=== PATIENT | male | born 1960 | race Caucasian/White ===

== ENCOUNTER 2023-05-02 16:03 | Inpatient (IN) | payer OTHER, SELFPAY ==
[2023-05-02] VITALS (23 sets, daily range): BP systolic 123–254; BP diastolic 71–109; PULSE 88–109; RESP 16–18; TEMP 36.4–36.8; O2SAT 95–100; BMI 26.3; BMI 26.9
--- NOTE | 2023-05-02 16:25 | CRLHL7_ITS ---
For Patients: As a result of the Century Cures Act, medical imaging exams and procedure reports are released immediately into your electronic medical record. You may view this report before your referring provider. If you have questions, please contact your health care provider. INDICATION: Slurred speech TECHNIQUE: Head CT without contrast. COMPARISON: None. FINDINGS: CSF spaces: Mild diffuse global parenchymal volume loss. Brain parenchyma and extra-axial spaces: There are nonspecific low attenuation white matter changes consistent with chronic microvascular disease. No sign of intracranial hemorrhage, or midline shift. Skull base and calvarium: The visualized paranasal sinuses and mastoid air cells demonstrate no acute or significant findings. The visualized orbits are grossly unremarkable. No skull fractures. IMPRESSION: No evidence of acute intracranial abnormality on this unenhanced CT. Specifically, no evidence of intracranial hemorrhage. Mild global parenchymal volume loss and probable chronic microvascular ischemic changes. Please note that all CT scans at this facility use dose modulation, iterative reconstruction, and/or weight-based dosing when appropriate to reduce radiation dose to as low as reasonably achievable. Dictated by Aj Mcclain MD @ 05/02/2023 5:13:16 PM (Electronically Signed)
--- NOTE | 2023-05-02 16:25 | CRLHL7_ITS ---
For Patients: As a result of the Century Cures Act, medical imaging exams and procedure reports are released immediately into your electronic medical record. You may view this report before your referring provider. If you have questions, please contact your health care provider. DATE: 05/02/2023 CLINICAL HISTORY: Patient with slurred speech. TECHNIQUE: Standard helical CT image acquisition through the intracranial circulation following intravenous administration of contrast material with bolus tracking. 2D and 3D MIP images for post-processing were performed and interpreted on an independent workstation and 3D images were permanently archived. COMPARISON: CT same day. FINDINGS: There is no proximal intracranial large vessel occlusion. There is an incidental 2mm right M1 segment aneurysm. The right internal carotid artery is normal. The right anterior cerebral artery and its branches are normal. The left internal carotid artery is normal. The left middle cerebral artery and its branches are normal. The left anterior cerebral artery and its branches are normal. The anterior communicating artery is well visualized and appears normal. The right vertebral artery and PICA are normal. The left vertebral artery and PICA are normal. The right vertebral artery is dominant. The basilar artery is patent and appears normal. The right posterior cerebral artery is normal. The left posterior cerebral artery is normal. IMPRESSION: 1. No proximal intracranial large vessel occlusion. 2. Incidental 2mm right M1 segment aneurysm. Telehealth consultation with [facility]s Neurointerventional team for management of this aneurysm can be arranged by calling . Please note that all CT scans at this facility use dose modulation, iterative reconstruction, and/or weight-based dosing when appropriate to reduce radiation dose to as low as reasonably achievable. Dictated by Janis Leon MD @ 05/03/2023 9:08:46 AM (Electronically Signed)
--- NOTE | 2023-05-02 16:25 | CRLHL7_ITS ---
For Patients: As a result of the Century Cures Act, medical imaging exams and procedure reports are released immediately into your electronic medical record. You may view this report before your referring provider. If you have questions, please contact your health care provider. DATE: 05/02/2023 CLINICAL HISTORY: Patient with slurred speech. TECHNIQUE: Standard helical CT image acquisition of the neck up to the skull base after bolus intravenous contrast enhancement. 2D and 3D MIP images for post-processing were performed and interpreted on an independent workstation and 3D images were permanently archived. COMPARISON: CT same day FINDINGS: The origins of the great vessels from the aortic arch are patent. The origin of the right vertebral artery is patent. The origin of the left vertebral artery is patent. The common carotid arteries are patent. There is no stenosis at the origin of the right internal carotid artery. There is no stenosis at the origin of the left internal carotid artery. The rest of the cervical segments of the internal carotid arteries are patent up to the skull base. The right vertebral artery is dominant. The cervical segments of the vertebral arteries are patent up to the skull base. The visualized lung apices are unremarkable. The thyroid gland demonstrates a 10mm hypodense lesion in its left lobe, likely a cyst. The soft tissues of the neck are unremarkable. There are degenerative changes in the cervical spine. IMPRESSION: Patent cervical vasculature. Please note that all CT scans at this facility use dose modulation, iterative reconstruction, and/or weight-based dosing when appropriate to reduce radiation dose to as low as reasonably achievable. Dictated by Janis Leon MD @ 05/03/2023 8:56:38 AM (Electronically Signed)
--- NOTE | 2023-05-02 16:33 | ED_ITS ---
HPI - General Adult General Chief complaint: Neuro Symptoms/Altered Deficit Stated complaint: difficulty walking Time Seen by Provider: 05/02/23 16:08 Source: patient and family Limitations: no limitations History of Present Illness HPI narrative: 62-year-old male coming into the ER today with difficulty walking. States that his symptoms started about 7-1/2 hours ago when he was at work. Became weak and had a difficult time walking. He states that when he walks he felt like he had a fall to the right side. His boss commented that his speech was a bit slurred. His and daughter who brought him in today states that his speech is very mildly slurred but not significantly different than usual. But that he is having a very hard time walking to the point where they had help him with a wheelchair. He has not had any vomiting or fevers today. He is not complaining of chest pain. He denies having a headache. He denies abdominal discomfort or recent illness. He denies any changes in his hearing or vision. Patient's past medical history significant for diabetes, hypertension hyperlipidemia. He is on a statin which he thinks is atorvastatin, Victoza and lisinopril. He also tells me later on that he has a history of sarcoidosis, elevated creatinine and elevated calcium in the past. He does complain of increased urinary frequency with multiple trips to the bathroom at night and significant weight loss in the last 3 or so months. Related Data Home Medications Medication Instructions Recorded Confirmed cholecalciferol (vitamin D3) 1,250 PO 05/02/23 mcg (50,000 unit) capsule liraglutide 0.6 mg/0.1 mL (18 mg/3 1.2 mg subcut DAILY 05/02/23 05/02/23 mL) subcutaneous pen injector (Victoza 2-Con) lisinopril PO DAILY 05/02/23 Allergies Allergy/AdvReac Type Severity Reaction Status Date / Time No Known Drug Allergies Allergy Verified 05/02/23 16:23 Review of Systems Status of ROS: Reports: 10 or more systems reviewed and unremarkable except as noted in History and below [facility] Social History Smoking Status: Former smoker What tobacco products do you use: cigarettes Years smoked: 2 Smoking quit date/years: <= 15 years ago, cigars and pipe How often do you have a drink containing alcohol: 2-4 times a month How many standard drinks containing alcohol do you have on a typical day: 3 or 4 How often do you have six or more drinks on one occasion: Less than monthly AUDIT-C Alcohol total score: 4 Non-prescribed substance use: denies use service: Yes Exam Narrative: Exam Narrative: Well-nourished well-developed patient in no acute distress. Alert and oriented. Answers questions appropriately. Mood and affect are appropriate. Thoughts are goal oriented and rational. No tangential or magical thinking noted. Patient speaks in full sentences without needing to catch his breath. There is no word-finding difficulty, dysarthria or aphasia. HEENT: Normocephalic atraumatic. Pupils are equally round reactive to light. Extraocular muscles are intact. Conjunctivae are moist without any icterus noted. Moist mucous membranes. Very poor dentition with poor oral hygiene. Posterior pharynx is normal. Neck is soft without any lymphadenopathy or thyromegaly. No masses are appreciated. Cardiovascular: Heart is regular rate and rhythm S1 and S2 are present without any murmurs. Lungs: Clear to auscultation bilaterally no wheezes rhonchi or rales are appreciated. Patient takes deep breaths without any discomfort. Abdomen: Soft and nontender nondistended with normal bowel sounds. No guarding or rebound. Extremities: Bilateral lower extremities are without edema. Normal DP and PT pulses. Skin: Well perfused without any obvious rashes. Strength is 5/5 of the upper and lower extremities. Reflexes are 2+ and symmetric at the knees. Cranial nerves 3-12 are normal. [id number] is normal. Ipmk-em-wlpa is normal. There is no nystagmus either horizontally or vertically. He does have a right lower extremity motor drift but does not hit the bed. This puts his NIH score at 1. Const: Vital Signs, click to edit/add: Vital Signs - 24 hr 05/02/23 16:19 05/02/23 17:06 05/02/23 17:27 Temperature 97.6 F Pulse Rate 98 Pulse Rate [Left P ulse Oximeter] 88 Respiratory Rate 16 Blood Pressure Blood Pressure [Le ft Upper Arm] 151/89 H Pulse Oximetry 99 100 95 Oxygen Delivery Me thod Room Air 05/02/23 17:30 05/02/23 17:33 Temperature Pulse Rate 98 109 H Pulse Rate [Left P ulse Oximeter] Respiratory Rate Blood Pressure 179/109 H Blood Pressure [Le ft Upper Arm] Pulse Oximetry 100 98 Oxygen Delivery Me thod Course Course Hospital Course: Head CT was done, did not show any acute changes. This was followed by a head CT and neck CTA: No evidence of large vessel occlusion, 2 mm MCA aneurysm. EKG, read by me, shows normal sinus rhythm with first-degree AV block and a prolonged QT. CBC showed mild anemia with a hemoglobin of 12.3. Consulted with neurology at [facility], Dr. Aguilar. He recommended admission, loading dose of Plavix and a daily aspirin, both of which were given. Also recommended MRI and echocardiogram in the morning. Remainder of the labs returned and were quite abnormal: His creatinine was 3 and his calcium was 13.9. Do not have a baseline of his lab work. IV fluids were started. Given the amount of back pain he was having we did proceed with a lumbar spine CT, while in the CT, the orthotic and prosthetic technician remarked on abnormal abdomen therefore an abdominal CT was also ordered. Results pending at this time. Patient will be admitted for further management. Vital Signs Vital signs: Initial Vital Signs Temperature 97.6 F 05/02/23 16:19 Temperature Source Temporal Artery Scan 05/02/23 16:19 Pulse Rate 88 05/02/23 16:19 Respiratory Rate 16 05/02/23 16:19 Blood Pressure 151/89 H 05/02/23 16:19 Blood Pressure Mean 109 H 05/02/23 16:19 Blood Pressure Position Sitting 05/02/23 16:19 Pulse Oximetry 99 05/02/23 16:19 Oxygen Delivery Method Room Air 05/02/23 16:19 Vital Signs Temperature 97.6 F 05/02/23 16:19 Pulse Rate 88 05/02/23 16:19 Respiratory Rate 16 05/02/23 16:19 Blood Pressure 151/89 H 05/02/23 16:19 Pulse Oximetry 99 05/02/23 16:19 Oxygen Delivery Method Room Air 05/02/23 16:19 Temperature 97.6 F 05/02/23 16:19 Pulse Rate 109 H 05/02/23 17:33 Respiratory Rate 16 05/02/23 16:19 Blood Pressure 179/109 H 07/10/23 17:33 Pulse Oximetry 98 07/10/23 17:33 Oxygen Delivery Method Room Air 05/02/23 16:19 Medical Decision Making MDM Narrative Medical decision making narrative: 62-year-old male with urologic deficits, consistent with stroke. Also hypercalcemia and elevated creatinine with recent weight loss. Patient will be admitted for further management. Lab Data Lab results reviewed: Yes I reviewed the patient's lab results Labs: Lab Results 05/02/23 05/02/23 Range/Units 17:12 18:32 WBC 9.30 (4.50-11.00) K/uL RBC 4.44 (4.30-5.90) m/uL Hgb 12.3 L (13.5-17.5) gm/dL Hct 37.8 (37.0-53.0) % MCV 85 (80-100) fL MCH 28 (26-34) pg MCHC 33 (32-36) gm/dL RDW Coeff of Raman 13.5 (11.5-15.5) % Plt Count 213 (140-440) K/uL Neut % (Auto) 87.9 H (42.0-72.0) % Lymph % (Auto) 4.9 L (20-44) % [place] % (Auto) 5.9 (0.0-11.0) % Eos % (Auto) 0.0 (0.0-7.0) % Baso % (Auto) 0.1 (0.0-3.0) % Neut # (Auto) 8.20 H (1.7-7.0) K/uL Lymph # (Auto) 0.50 L (0.90-2.90) K/uL [place] # (Auto) 0.50 (0.00-0.90) K/UL Eos # (Auto) 0.00 (0.00-0.50) K/uL Baso # (Auto) 0.01 (0.00-0.30) K/uL Abs Immat Gran (auto) 0.11 (0.00-0.30) K/uL Imm/Tot Granulo (auto) 1.2 % INR 1.11 H (0.91-1.10) Sodium 136 (135-149) mmol/L Potassium 3.4 L (3.6-5.1) mmol/L Chloride 98 (96-114) mmol/L Carbon Dioxide 26 (20-32) mmol/L BUN 32 H (7-30) mg/dL Creatinine 3.0 H (0.5-1.5) mg/dL Estimated Creat Clear 27.04 Estimated GFR 23 ml/min Glucose 121 H (60-115) mg/dL Lactate 1.5 (0.5-1.9) mmol/L Calcium 13.9 H* (8.4-10.6) mg/dL Total Bilirubin 0.7 (0.1-1.5) mg/dL Direct Bilirubin 0.4 (0.0-0.5) mg/dL AST 29 (12-35) U/L ALT 20 (4-50) U/L Alkaline Phosphatase 78 (40-150) U/L Troponin I < 0.01 L (0.01-0.04) ng/mL C-Reactive Protein 0.8 (0.5-1.0) mg/dL Total Protein 7.3 (6.0-8.3) g/dL Albumin 4.3 (3.3-5.0) g/dL TSH 0.584 (0.270-4.20) uIU/mL Salicylates < 1.0 L (1.0-10) mg/dL Acetaminophen < 10.0 L (10.0-30.0) ug/mL Ethyl Alcohol < 0.01 L (0.01-0.03) % Lab Acknowledgement Test Added POC Troponin I 0.02 (0.01-0.04) ng/ml Imaging Data CT scan - head: Attestation: I have reviewed the pertinent imaging results. Radiologist's impression: Head CT without contrast. COMPARISON: None. FINDINGS: CSF spaces: Mild diffuse global parenchymal volume loss. Brain parenchyma and extra-axial spaces: There are nonspecific low attenuation white matter changes consistent with chronic microvascular disease. No sign of intracranial hemorrhage, or midline shift. Skull base and calvarium: The visualized paranasal sinuses and mastoid air cells demonstrate no acute or significant findings. The visualized orbits are grossly unremarkable. No skull fractures. IMPRESSION: No evidence of acute intracranial abnormality on this unenhanced CT. Specifically, no evidence of intracranial hemorrhage. Mild global parenchymal volume loss and probable chronic microvascular ischemic changes. CTA head and neck: Attestation: I have reviewed the pertinent imaging results. Radiologist's impression: Study:?CT Neck Angio W/IV ONLY-05/02/2023 4:58:51 PM Ordering Physician:Dash Jordan Preliminary Report: COMPARISON: None. IMPRESSION: CTA head: No evidence of large vessel occlusion. Proximal right MCA aneurysm, measuring 2 mm (series 5, image 49). CTA neck: No sign of dissection or significant stenosis. ECG Data Attestation: I personally reviewed and interpreted this ECG as follows: Discharge Plan Discharge Clinical Impression: Kidney disease, Cerebrovascular accident, Hypercalcemia Prescriptions: No Action cholecalciferol (vitamin D3) 1,250 mcg (50,000 unit) capsule PO Victoza 2-Con 0.6 mg/0.1 mL (18 mg/3 mL) pen injector 1.2 mg subcut DAILY lisinopril PO DAILY Follow Up/Referrals: Ted Hernandez MD [Primary Care Provider] -
--- NOTE | 2023-05-02 16:45 | ED.NURSE ---
unable to assess pt in imaging
[2023-05-02 17:22] LABS: Lactate* 1.5 mmol/L (0.5-1.9)
[2023-05-02 17:27] LABS: Basophils Absolute Auto 0.01 K/uL (0.00-0.30); Basophils Percent Auto 0.1 % (0.0-3.0); Hematocrit 37.8 % (37.0-53.0); Hemoglobin* 12.3 gm/dL (13.5-17.5); Immature Granulocytes Abs Auto 0.11 K/uL (0.00-0.30); Immature Granulocytes Pct Auto 1.2 %; Lymphocytes Percent Auto 4.9 % (20-44); Mean Corpuscular HGB Conc 33 gm/dL (32-36); Mean Corpuscular Hemoglobin 28 pg (26-34); Mean Corpuscular Volume 85 fL (80-100); Monocytes Percent Auto 5.9 % (0.0-11.0); Neutrophils Percent Auto 87.9 % (42.0-72.0); Platelet Count* 213 K/uL (140-440); RDW Coefficient of Variation % 13.5 % (11.5-15.5); Red Blood Count 4.44 m/uL (4.30-5.90)
[2023-05-02 17:28] LABS: Slide Review Reflex No
[2023-05-02 17:38] LABS: Troponin, Point-of-Care* 0.02 ng/ml (0.01-0.04)
[2023-05-02 17:40] LABS: Albumin* 4.3 g/dL (3.3-5.0); Chloride* 98 mmol/L (96-114)
[2023-05-02 17:41] LABS: Potassium* 3.4 mmol/L (3.6-5.1); Sodium* 136 mmol/L (135-149)
[2023-05-02 17:42] LABS: INR 1.11 (0.91-1.10)
[2023-05-02 17:43] LABS: Bilirubin Direct* 0.4 mg/dL (0.0-0.5); Bilirubin Total* 0.7 mg/dL (0.1-1.5); Carbon Dioxide* 26 mmol/L (20-32); Est. Creatinine Clearance* 27.04; Estimated Glomerular Filt Rate 23 ml/min
[2023-05-02 17:44] LABS: Alanine Aminotransferase* 20 U/L (4-50); Alkaline Phosphatase* 78 U/L (40-150); Aspartate Amino Transferase* 29 U/L (12-35); Blood Urea Nitrogen* 32 mg/dL (7-30); Glucose* 121 mg/dL (60-115); Total Protein* 7.3 g/dL (6.0-8.3)
[2023-05-02 17:45] LABS: Acetaminophen* < 10.0 ug/mL (10.0-30.0); Ethanol* < 0.01 % (0.01-0.03); Salicylate* < 1.0 mg/dL (1.0-10)
[2023-05-02 17:46] LABS: C Reactive Protein* 0.8 mg/dL (0.5-1.0)
[2023-05-02 17:47] LABS: Calcium* 13.9 mg/dL (8.4-10.6)
--- NOTE | 2023-05-02 17:55 | CRLHL7_ITS ---
For Patients: As a result of the Century Cures Act, medical imaging exams and procedure reports are released immediately into your electronic medical record. You may view this report before your referring provider. If you have questions, please contact your health care provider. INDICATION: Abdominal pain. Dysuria. COMPARISON: CT of the abdomen and pelvis with contrast from today. TECHNIQUE: CT examination of the lumbar spine is performed with spiral technique without contrast using the spiral CT data from the accompanying body CT scans. 1.5 mm thick axial, and 2 mm thick sagittal and coronal reconstructions were made. Please note that all CT scans at this facility use dose modulation, iterative reconstruction, and/or weight-based dosing when appropriate to reduce radiation dose to as low as reasonably achievable. FINDINGS: : The vertebral bodies are normal in height. There is no sign of lumbar vertebral body compression fracture. There is no sign of fracture of the posterior elements. There is grade 1 anterior subluxation of L5 on S1 which is associated with moderate left and mild right facet arthropathy. The rest of the lumbar vertebral bodies are in anatomic alignment. T12-L1: Normal. L1-2: Normal. L2-3: Normal. L3-4: Mild diffuse disc bulge and mild ligamentum flavum hypertrophy without spinal stenosis. There is a moderate sized inferiorly extruded disc fragment extending to the inferior L4 level, resulting in mild spinal stenosis along the posterior margin of the L4 vertebral body. There is moderate left and mild right foraminal zone disc bulging without contact with the exiting nerve roots. L4-5: Mild spinal stenosis produced by a moderate diffuse disc bulge and mild ligamentum flavum hypertrophy. Mild bilateral foraminal zone disc bulging coming into contact with both exiting L4 nerve roots, without effacement of a significant amount of perineural fat. L5-S1: There is mild diffuse disc bulging. This results in mild spinal stenosis when combined with the grade 1 anterior subluxation of L5 on S1. There is mild bilateral foraminal zone disc bulging, without contact with the exiting nerve roots. There is mild loss of disc height from disc degenerative disease. Intervertebral discs are normal in height aside from the mild L5-S1 disc degenerative disease described above. Please see the accompanying CT of the abdomen and pelvis report regarding the massive distension of the urinary bladder. IMPRESSION: Mild spinal stenosis along the posterior margin of the L4 vertebral body from an inferiorly extruded moderate-sized L4-5 disc herniation. Mild spinal stenosis at L4-5 and L5-S1. Massive distention of the urinary bladder. Please see the accompanying CT of the abdomen and pelvis report Please note that all CT scans at this facility use dose modulation, iterative reconstruction, and/or weight-based dosing when appropriate to reduce radiation dose to as low as reasonably achievable. Dictated by Humphrey Segundo MD @ 05/02/2023 7:42:33 PM (Electronically Signed)
[2023-05-02 17:57] LABS: Troponin I* < 0.01 ng/mL (0.01-0.04)
--- NOTE | 2023-05-02 18:15 | ED.NURSE ---
pt in imaging, unable to assess
--- NOTE | 2023-05-02 18:16 | CRLHL7_ITS ---
For Patients: As a result of the 21st Century Cures Act, medical imaging exams and procedure reports are released immediately into your electronic medical record. You may view this report before your referring provider. If you have questions, please contact your health care provider. INDICATION: Abdominal pain. Dysuria. History of sarcoid. Creatinine is 3.0. COMPARISON: None available. TECHNIQUE: Intravenous contrast had been administered recently for the CTA of the head and neck. CT examination of the abdomen and pelvis was performed without additional contrast enhancement using 3 mm thick axial sections from the lung bases through the pubic symphysis. Oral contrast was not administered. Please note that all CT scans at this facility use dose modulation, iterative reconstruction, and/or weight-based dosing when appropriate to reduce radiation dose to as low as reasonably achievable. FINDINGS: In the abdomen, the unenhanced liver, spleen, pancreas, and adrenals are normal in appearance. There is moderate left hydronephrosis with moderate left hydroureter. There is no sign of hydronephrosis or hydroureter on the right. There is appropriate excretion of contrast into the collecting systems otherwise. The renal parenchyma is normal in appearance. The gallbladder is normal in appearance. The abdominal aorta is normal in caliber with no sign of dilatation. There is no sign of retroperitoneal mass or adenopathy. The stomach, loops of small bowel, and right colon in the abdomen are normal in appearance. There is moderate diverticulosis of the left transverse and descending colon, with no sign of diverticulitis. In the pelvis, the appendix is nonvisualized, but there is no sign of an inflammatory process in the area of the appendix. There is moderate proximal sigmoid diverticulosis without evidence of diverticulitis. The loops of small bowel and rectum in the pelvis are otherwise normal in appearance. The prostate is mildly enlarged but is otherwise normal in appearance. The urinary bladder is massively distended, measuring 29.3 centimeters in length, extending to the level of the mid kidneys. It has a large diverticulum projecting to the left in its midportion. There are 2 large diverticula projecting laterally to the right and anteriorly at the base of the bladder. There is a 3 millimeter calculus in the right inferior bladder diverticulum. There is no sign of pelvic or inguinal mass or adenopathy. There is no sign of free air or free fluid in the abdomen or pelvis. The lung bases are clear. Please see the accompanying CT of the lumbar spine regarding findings of mild spinal stenosis at L4-5 and L5-S1 along with the grade 1 anterior subluxation of L5 on S1. There is minimal scoliosis of the thoracic and lumbar spine convex towards the right. The rest of the bony structures are normal in appearance. I discussed the findings with Dr. Soto at 1948 hours on 05/02/2023. IMPRESSION: Massive distention of the urinary bladder, reaching the level of the mid kidneys, with several large bladder diverticula. 3 millimeter calculus in the right inferior bladder diverticulum. I suspect that this is a neurogenic bladder since the prostate is only mildly enlarged. Moderate left hydronephrosis and moderate left hydroureter produced by the bladder distension. No sign of right hydronephrosis or hydroureter. CT of the abdomen shows moderate diverticulosis of the left transverse and descending colon with no sign of diverticulitis.. CT of the pelvis shows moderate proximal sigmoid diverticulosis with no sign of diverticulitis. Please note that all CT scans at this facility use dose modulation, iterative reconstruction, and/or weight-based dosing when appropriate to reduce radiation dose to as low as reasonably achievable. Dictated by Humphrey Segundo MD @ 05/02/2023 7:57:23 PM (Electronically Signed)
[2023-05-02 18:26] LABS: Thyroid Stimulating Hormone* 0.584 uIU/mL (0.270-4.20)
[2023-05-02] MEDS: CLOPIDOGREL 300 MG TABLET PO (18:34)
[2023-05-02] MEDS: ASPIRIN 81 MG TAB.CHEW 324 MG PO (18:35)
[2023-05-02] MEDS: 0.9 % SODIUM CHLORIDE 1000 ml 1,000 ML IV (18:40)
--- NOTE | 2023-05-02 19:03 | CRLHL7_ITS ---
For Patients: As a result of the Century Cures Act, medical imaging exams and procedure reports are released immediately into your electronic medical record. You may view this report before your referring provider. If you have questions, please contact your health care provider. INDICATION: Hypercalcemia. History of sarcoid. COMPARISON: None available. TECHNIQUE: Intravenous contrast had been administered earlier today as part of the CTA of the head and neck. CT examination of the chest was performed without additional contrast enhancement. 3 mm thick axial sections were obtained from above the apices of the lungs to the lung bases. Please note that all CT scans at this facility use dose modulation, iterative reconstruction, and/or weight-based dosing when appropriate to reduce radiation dose to as low as reasonably achievable. FINDINGS: There are noncalcified 4 millimeter pleural nodules along the anterior portion of the minor fissure, axial images 55 through 57 series 3. Similar noncalcified pleural nodules are seen along the left major fissure, axial images 42 through 44 series 3. There are multiple 3-5 millimeter nodules scattered throughout both lungs, located both in the perihilar regions as well as deeper in the chest. The appearance is consistent with pulmonary parenchymal involvement by sarcoid, but certainly is not specific for this diagnosis. There is no sign of calcified granulomata in the lungs to suggest an infectious etiology for these multiple nodules. There is no sign of mediastinal or hilar mass or adenopathy. Sensitivity is limited by lack of contrast enhancement. There is a mild coronary calcification. The heart is otherwise normal in appearance for the patient`s age. There is age appropriate appearance of the thoracic aorta and ascending great vessels. There is no sign of supraclavicular or axillary mass or adenopathy. The visualized superior liver, spleen, pancreas, and adrenals are normal in appearance. There is contrast seen in the collecting systems of the visualized superior kidneys. There is no sign of hydronephrosis on the right. The small portion of the left kidney included on today study shows mild dilatation of the upper pole calices consistent with moderate hydronephrosis seen on CT of the abdomen and pelvis from earlier today. There is moderate diverticulosis of the left transverse colon and the superior descending colon with no sign of diverticulitis. There is mild anterior wedging of the T6 through T8 vertebral bodies, mild compression fractures of indeterminate age. There is mild scoliosis of the upper thoracic spine convex towards the left. IMPRESSION: Multiple small noncalcified 3-5 millimeter nodules scattered throughout both lungs. The appearance is nonspecific, but the findings would be consistent with pulmonary parenchymal involvement by sarcoid. No sign of any hilar adenopathy to correlate with the history of sarcoid. Please note that all CT scans at this facility use dose modulation, iterative reconstruction, and/or weight-based dosing when appropriate to reduce radiation dose to as low as reasonably achievable. Dictated by Humphrey Segundo MD @ 05/02/2023 8:07:21 PM (Electronically Signed)
--- NOTE | 2023-05-02 19:48 | ED.NURSE ---
asked doctor if they wanted a second line, doctor stated we are ok with one
[2023-05-02] MEDS: 0.9 % SODIUM CHLORIDE 1000 ml 1,000 ML 200 ML IV (20:38)
--- NOTE | 2023-05-02 20:38 | P.IMHP_ITS ---
Hospitalist- H&P: HPI History of Present Illness Date Seen: 05/02/23 Chief complaint: difficulty walking Narrative: Steve Kwok is a 62 year old male admitted to the hospital today with onset of difficulty walking today. Patient reported that he felt fine when he got up this morning. About 9:00 a.m. he was at work and noted that he had trouble walking. He felt like he was falling toward the right side. He held onto a cart to keep from falling over. He is not sure if he was having specific weakness in his right arm or leg or more of a balance problem. His indicates that he was having some slurring of his speech this afternoon. His daughter notes that he seemed to have trouble with word finding this afternoon. He also reports that he started having right low back pain today. There was no injury. He denies numbness or tingling or pain going down his legs. Patient reports no other concerns. He has a history of sarcoidosis which has been managed by the [facility]. He was treated with prednisone until last fall. They discontinued his predniso ne treatment at that time. Associated with his sarcoid he had hypercalcemia. He has a history of stage 3 chronic kidney disease thought secondary to diabetes. He has hypertension and dyslipidemia. In the emergency department he was evaluated emergently for stroke. Head CT was unremarkable. Head and neck CTA noted only a right MCA 2 mm aneurysm. Otherwise unremarkable. Neurologically he had no focal findings. Laboratory testing showed hypercalcemia, acute kidney injury. Review of Systems Narrative: Patient reports he has generally been doing well except for the events that occurred today. He has had no other recent health care concerns. He reports his diabetes has been well controlled. He has not been feeling ill. He does note that he has urinary urgency and frequency and and hesitancy. He voids small amounts. Denies bowel problems, diarrhea, constipation, blood in the stool, incontinence of stool [facility] Medical History (Updated 05/02/23 @ 21:06 by Robert Govea MD) Low vitamin D level ?R79.89 - Other specified abnormal findings of blood chemistry (ICD-10) Low back pain ?M54.50 - Low back pain, unspecified (ICD-10) Hypertension ?I10 - Essential (primary) hypertension (ICD-10) Acute kidney injury ?N17.9 - Acute kidney failure, unspecified (ICD-10) Diabetes mellitus ?E11.9 - Type 2 diabetes mellitus without complications (ICD-10) Sarcoidosis ?D86.9 - Sarcoidosis, unspecified (ICD-10) Surgical History (Updated 05/02/23 @ 20:50 by Robert Govea MD) History of vasectomy ?Z98.52 - Vasectomy status (ICD-10) History of hernia repair ?Z98.890 - Other specified postprocedural states (ICD-10) ?Z87.19 - Personal history of other diseases of the digestive system (ICD-10) Family History (Updated 05/02/23 @ 20:51 by Robert Govea MD) Mother High blood pressure Bone cancer Father High blood pressure Stroke Social History (Updated 05/02/23 @ 20:52 by Robert Govea MD) Narrative: He lives with his in [place]. 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 He is a former smoker. Does not use recreational drugs. Infrequently drinks alcohol Smoking Status: Former smoker What tobacco products do you use: cigarettes Years smoked: 2 Smoking quit date/years: <= 15 years ago, cigars and pipe How often do you have a drink containing alcohol: 2-4 times a month How many standard drinks containing alcohol do you have on a typical day: 3 or 4 How often do you have six or more drinks on one occasion: Less than monthly AUDIT-C Alcohol total score: 4 Non-prescribed substance use: denies use service: Yes Meds Home Medications and Allergies Home Medications Medication Instructions Recorded Confirmed Type aspirin 81 mg capsule 81 mg PO DAILY 05/02/23 05/02/23 History atorvastatin 10 mg tablet 10 mg PO QHS 05/02/23 05/02/23 History cholecalciferol (vitamin D3) 1,250 PO 05/02/23 History mcg (50,000 unit) capsule empagliflozin 25 mg tablet 12.5 mg PO QAM 05/02/23 05/02/23 History (Jardiance) liraglutide 0.6 mg/0.1 mL (18 mg/3 1.2 mg subcut DAILY 05/02/23 05/02/23 History mL) subcutaneous pen injector (Victoza 2-Con) lisinopril See Rx Instructions .Route .COMPLEX 05/02/23 05/02/23 History omega 3-bdr-mcm-fish oil 300 1 cap PO BID 05/02/23 05/02/23 History mg-1,000 mg capsule (Fish Oil) Allergies Allergy/AdvReac Type Severity Reaction Status Date / Time No Known Drug Allergies Allergy Verified 05/02/23 16:23 Exam Narrative: Exam Narrative: He is alert and appears in no distress. Speech is normal. Head is atraumatic. Eyes are normal. Extraocular movements are full. Visual corcoran are intact. No facial asymmetry. Oropharynx is normal except for poor dentition. Neck is supple without mass or adenopathy. Respirations are clear to auscultation. Cardiovascular: S1, S2, regular rate and rhythm. No murmur gallop or rub. Abdomen: Bowel sounds active. Abdomen is soft without tenderness. External genitalia normal. Skin is without rash. Upper extremity new neurologic examination shows intact, symmetric strength and sensation bilaterally in shoulder flexion and extension, elbow flexion and extension, wrist flexion and extension, finger extension. [id number] is normal. Lower extremity examination shows full strength and sensation bilaterally including hip flexion, knee flexion and extension, ankle dorsiflexion and plantar flexion and great toe dorsiflexion bilaterally. Const: Vital Signs, click to edit/add: Vital Signs - 24 hr 05/02/23 16:19 05/02/23 17:06 05/02/23 17:27 Temperature 97.6 F Pulse Rate 98 Pulse Rate [Left P ulse Oximeter] 88 Respiratory Rate 16 Blood Pressure Blood Pressure [Le ft Upper Arm] 151/89 H Pulse Oximetry 99 100 95 Oxygen Delivery Me od Room Air 05/02/23 17:30 05/02/23 17:33 05/02/23 17:34 Temperature Pulse Rate 98 109 H 99 Pulse Rate [Left P ulse Oximeter] Respiratory Rate Blood Pressure 179/109 H Blood Pressure [Le ft Upper Arm] Pulse Oximetry 100 98 95 Oxygen Delivery Pr thod 05/02/23 17:45 05/02/23 17:49 05/02/23 18:02 Temperature Pulse Rate 102 H 94 Pulse Rate [Left P ulse Oximeter] Respiratory Rate Blood Pressure 168/97 H 165/94 H Blood Pressure [Le ft Upper Arm] Pulse Oximetry 98 98 Oxygen Delivery Pr thod 05/02/23 18:03 05/02/23 18:25 05/02/23 18:30 Temperature Pulse Rate 100 103 H 101 H Pulse Rate [Left P ulse Oximeter] Respiratory Rate Blood Pressure Blood Pressure [Le ft Upper Arm] Pulse Oximetry 95 100 100 Oxygen Delivery Me thod 05/02/23 18:33 05/02/23 18:45 05/02/23 18:47 Temperature Pulse Rate 100 97 101 H Pulse Rate [Left P ulse Oximeter] Respiratory Rate Blood Pressure 153/104 H 162/95 H Blood Pressure [Le ft Upper Arm] Pulse Oximetry 99 97 98 Oxygen Delivery Pr thod 05/02/23 19:00 05/02/23 19:01 05/02/23 19:02 Temperature Pulse Rate 98 96 95 Pulse Rate [Left P ulse Oximeter] Respiratory Rate Blood Pressure 160/88 H Blood Pressure [Le ft Upper Arm] Pulse Oximetry 100 98 96 Oxygen Delivery Pr thod 05/02/23 19:15 05/02/23 19:17 Temperature Pulse Rate 94 Pulse Rate [Left P ulse Oximeter] Respiratory Rate Blood Pressure 145/87 H Blood Pressure [Le ft Upper Arm] Pulse Oximetry 98 Oxygen Delivery Me od Documenting provider has reviewed patient's vital signs: yes Hospitalist - H&P: Result Labs Labs: Short CBC 05/02/23 Range/Units 17:12 WBC 9.30 (4.50-11.00) K/uL Hgb 12.3 L (13.5-17.5) gm/dL Hct 37.8 (37.0-53.0) % Plt Count 213 (140-440) K/uL BMP 05/02/23 17:12 Sodium 136 Potassium 3.4 L Chloride 98 Carbon Dioxide 26 BUN 32 H Creatinine 3.0 H Glucose 121 H Calcium 13.9 H* Cardiac Enzymes 05/02/23 Range/Units 17:12 Troponin I < 0.01 L (0.01-0.04) ng/mL Liver Function 05/02/23 Range/Units 17:12 Total Bilirubin 0.7 (0.1-1.5) mg/dL Direct Bilirubin 0.4 (0.0-0.5) mg/dL AST 29 (12-35) U/L ALT 20 (4-50) U/L Alkaline Phosphatase 78 (40-150) U/L Albumin 4.3 (3.3-5.0) g/dL Assessment and Plan Assessment and plan (1) Cerebrovascular accident: Problem comment: Clinically suspected to have a stroke in the left MCA distribution which seems to have resolved. MRI and echo are pending. Symptoms not obviously related to hypercalcemia or acute urinary retention and acute kidney injury. Status: Acute (2) Hypercalcemia: Problem comment: Unclear if this is due to renal failure primarily or secondary to sarcoid or combination. Stop vitamin-D supplement and treat sarcoid and hydrate Status: Acute (3) Acute urinary retention: Problem comment: Unclear if this is neurogenic bladder from diabetes or other neurologic problem or obstructive. Place Russ Status: Acute (4) Sarcoidosis: Problem comment: Other than hypercalcemia it is not clear that he is having active sarcoidosis Status: Acute (5) Diabetes mellitus: Problem comment: Recently well controlled. Will start prednisone temporarily pending decision about treatment of sarcoidosis. This will likely raise otherwise well- controlled blood sugars Status: Acute (6) Acute kidney injury: Problem comment: Possible contributors to this include chronic diabetes and hypertension as well as urinary retention and sarcoidosis. Place Russ catheter. IV hydration. Status: Acute (7) Hypertension: Problem comment: Hold lisinopril with acute kidney injury Status: Acute (8) Low back pain: Problem comment: Lumbar spine CT shows mild disc bulging and spinal stenosis without traumatic changes or bony changes Status: Acute Plan Patient is admitted to the hospital for evaluation and management of suspected stroke with right-sided weakness and speaking difficulties as well as acute urinary retention, acute kidney injury, hypercalcemia. Will need consultation with specialists to address urinary retention and sarcoid as outpatient or transfer as inpatient if not getting better. Stroke treatment with dual antiplatelet therapy. Monitor and manage diabetes in the context of sarcoid treatment with prednisone. Total time spent today is 100 minutes, 60 minutes in coordination of care discussing with patient and other providers management of problems noted above
[2023-05-02] MEDS: ATORVASTATIN 10 MG TABLET 20 MG PO (20:39)
[2023-05-02] MEDS: ENOXAPARIN 30 MG/0.3ML INJ SUBCUT (20:39)
[2023-05-02] MEDS: predniSONE 10 MG TABLET 40 MG PO (20:39)
[2023-05-02] MEDS: POTASSIUM BICARB 25 MEQ EFFERVESCENT TAB PO (21:45)
[2023-05-02 22:31] LABS: Appearance Urine Clear (Clear); Bilirubin Urine Negative (Negative); Blood Urine 1+ (Negative); Color Urine Yellow (Yellow); Glucose Urine 2+ (Negative); Ketones Urine Negative (Negative); Leukocyte Esterase Urine Negative (Negative); Nitrite Urine Negative (Negative); Protein Urine 1+ (Negative); Urobilinogen Urine 0.2 (0.2-1.0); pH Urine 6.5 (5.0-8.5)
[2023-05-02 22:41] LABS: Bacteria Urine Few; RBC Urine 0-2 (0-2); Squamous Epithelial Cell Urine Few (None-Few); WBC Urine 0-2 (0-5)
[2023-05-02 22:54] LABS: Amphetamine Screen Urine Negative (Negative); Barbiturate Screen Urine Negative (Negative); Benzodiazepines Screen Urine Negative (Negative); Cannabinoid Screen Urine Negative (Negative); Cocaine Screen Urine Negative (Negative); Methadone Screen Urine Negative (Negative); Methamphetamines Screen Urine Negative (Negative); Opiate Screen Urine Negative (Negative); Oxycodone Screen Urine Negative (Negative); Phencyclidine Screen Urine Negative (Negative); Tricyclic Antidepressant Urine Negative (Negative)
[2023-05-03] VITALS (9 sets, daily range): BP systolic 109–158; BP diastolic 64–85; PULSE 47–98; RESP 16; TEMP 36.4–37; O2SAT 95–98
[2023-05-03] MEDS: 0.9 % SODIUM CHLORIDE 1000 ml 1,000 ML 200 ML IV ×5 (01:40→20:57)
--- NOTE | 2023-05-03 05:58 | PC.NURSE ---
End of Shift: Pt admitted to Med Surg from ED with C/C of unsteadiness and slurred speech. ordered ellsworth catheter placement, pt tolerated placement well. Urine output >1000cc initially, ellsworth clamped q30 min for first two hours. Ellsworth remained patent and draining well. Pt able to stand and pivot with SBA. Walker and gait belt brought into room if needed. NS running through ED placed R AC IV. Pt denies pain, reports some discomfort in back. Weakness on right arm noted.
[2023-05-03 06:41] LABS: Hematocrit 36.7 % (37.0-53.0); Immature Granulocytes Abs Auto 0.01 K/uL (0.00-0.30); Immature Granulocytes Pct Auto 0.2 %; Lymphocytes Percent Auto 7.8 % (20-44); Mean Corpuscular HGB Conc 33 gm/dL (32-36); Mean Corpuscular Hemoglobin 28 pg (26-34); Mean Corpuscular Volume 86 fL (80-100); Monocytes Percent Auto 3.5 % (0.0-11.0); Neutrophils Percent Auto 88.5 % (42.0-72.0); Platelet Count* 256 K/uL (140-440); RDW Coefficient of Variation % 13.8 % (11.5-15.5); Red Blood Count 4.28 m/uL (4.30-5.90); White Blood Count* 6.52 K/uL (4.50-11.00)
[2023-05-03 06:47] LABS: Slide Review Reflex No
[2023-05-03 07:14] LABS: Chloride* 106 mmol/L (96-114); Potassium* 3.8 mmol/L (3.6-5.1); Sodium* 138 mmol/L (135-149)
[2023-05-03 07:17] LABS: Blood Urea Nitrogen* 33 mg/dL (7-30); Carbon Dioxide* 24 mmol/L (20-32); Creatinine* 2.7 mg/dL (0.5-1.5); Est. Creatinine Clearance* 30.04; Estimated Glomerular Filt Rate 26 ml/min
[2023-05-03 07:18] LABS: Glucose* 158 mg/dL (60-115); Magnesium* 1.9 mg/dL (1.5-2.6); Phosphorus* 2.5 mg/dL (2.5-4.5)
[2023-05-03 07:36] LABS: Calcium* 12.8 mg/dL (8.4-10.6)
[2023-05-03] MEDS: EMPAGLIFLOZIN 10 MG TABLET PO (08:44)
[2023-05-03] MEDS: predniSONE 20 MG TABLET 40 MG PO (08:44)
[2023-05-03] MEDS: CLOPIDOGREL 75 MG TABLET PO (08:44)
[2023-05-03] MEDS: ASPIRIN 81 MG TAB.CHEW PO (08:45)
--- NOTE | 2023-05-03 11:15 | CRLHL7_ITS ---
For Patients: As a result of the Century Cures Act, medical imaging exams and procedure reports are released immediately into your electronic medical record. You may view this report before your referring provider. If you have questions, please contact your health care provider. Indication: STROKE SYMPTOMS, RIGHT SIDED WEAKNESS, TROUBLE WALKING Technique: Noncontrast sagittal T1 weighted, axial T2 fast spin echo, FLAIR, SWI, and diffusion weighted images of the head. Comparison: CT head 05/02/2023 Findings: Moderate scattered patchy foci of increased T2 signal within the periventricular and subcortical white matter of both cerebral hemispheres. Mild generalized cerebral parenchymal volume loss. The ventricles, sulci and gyri are of normal size, shape and contour for age and degree of atrophy. No regions of restricted diffusion. Midline structures are centrally located. No convincing evidence of suspicious intra- or extra-axial fluid collections. Mild mucosal thickening in the frontal sinuses. Trace opacification of the mastoid air cells. Impression: 1. No radiographic evidence of acute intracranial abnormalities. 2. Moderate supratentorial white matter changes are non-specific but most likely related to small vessel ischemic disease. Mild cerebral volume loss. Dictated by Peewee Lund MD @ 05/03/2023 10:30:40 AM (Electronically Signed)
--- NOTE | 2023-05-03 14:27 | NUTR.NU ---
RDN with MD consult for hypercalcemia. Patient declined verbal education for designated caregiver and will pass along the handout provided. RDN reviewed calcium content of foods. Verbal and written information provided. Handouts provided on calcium content of foods from [employer]. Provided RDN contact information and encouraged to contact with questions.? RDN to follow up as needed.
--- NOTE | 2023-05-03 16:49 | P.IMPN_ITS ---
Progress Note: A&P Assessment and plan (1) Cerebrovascular accident: Problem details: - Initially clinically suspected to have a stroke in the left MCA distribution which seems to have resolved. MRI negative for stroke. ECHO prelim unremarkable. Poor coordination with right foot per PT/OT today, but I am not finding that on my exam (although I did not walk patient). Discontinue Plavix, continue aspirin. Treat hypercalcemia. Monitor and consider low back MRI if low back pain is ongoing and lack of coordination of weight foot persists as calcium comes down. Status: Ruled-out (2) Hypercalcemia: Problem details: Unclear if this is due to renal failure primarily or secondary to sarcoid or combination. Stop vitamin-D supplement and treat sarcoid and hydrate. Holding off on zoledronic acid due to poor kidney function with creatinine clearance of less than 35. Status: Acute (3) Low vitamin D level: Problem details: Due to hypercalcemia hold high dose vitamin-D supplement Status: Acute (4) Low back pain: Problem details: Lumbar spine CT shows mild disc bulging and spinal stenosis without traumatic changes or bony changes. Consider MRI if right foot coordination is persistently problematic despite improving hypercalcemia. Status: Acute (5) Hypertension: Problem details: Hold lisinopril with acute kidney injury Status: Acute (6) Acute kidney injury: Problem details: Possible contributors to this include chronic diabetes and hypertension as well as urinary retention and sarcoidosis. Some improvement overnight. Place Russ catheter. IV hydration. Lisinopril is on hold. Status: Acute (7) Diabetes mellitus: Problem details: Recently well controlled. On prednisone for sarcoidosis. This will likely raise otherwise well-controlled blood sugars. Continue insulin sliding scale. Status: Acute (8) Sarcoidosis: Problem details: Other than hypercalcemia it is not clear that he is having active sarcoidosis. Prednisone started yesterday. Status: Acute (9) Acute urinary retention: Problem details: Unclear if this is neurogenic bladder from diabetes or other neurologic problem or obstructive. More Russ placed yesterday. Creatinine improving. Monitor. Status: Acute Plan VTE prophylaxis with low-dose Lovenox renally adjusted. Time Spent With Patient Total time spent: Today I spent 40 minutes rounding on the patient. Greater than 50% included discussing care with the patient, family over the phone, and team, reviewing data, updating and managing the care plan. Subjective Time Seen by Provider: 12:50 Date Seen: 05/03/23 Interval history: Cristóbal feels okay today. He states the right sided weakness is better, but not completely resolved. He says it never completely went away and does not think it has gotten any worse since admission. I later spoke with his and daughter, Carolyn over the phone to give them an update. We discussed hypercalcemia, renal failure, right sided weakness, ambulation, MRI results, medications and disposition. Exam Narrative: Exam Narrative: General: No acute distress. Awake, alert, oriented x3. No pallor. No jaundice. Oropharynx: Clear. Mucous membranes moist. Cardiovascular: Regular rate and rhythm. No murmurs, gallops, or rubs. Respiratory: Clear to auscultation bilaterally. No wheezes or crackles. Abdomen: Bowel sounds present. Soft, nondistended, nontender. Extremities: No pedal edema. Neuro: I did not have Cristóbal get out of bed to walk. This was assessed by PT and OT today and they noted some difficulty with coordination of the right foot while seeking for stepping forward. I note no focal deficits. Romberg is negative. Cranial nerves 2-12 are intact. Extraocular movements are full. No nystagmus. No facial asymmetry. Tongue is midline. Peripheral vision and vision are grossly intact. Strength is 5/5 in all 4 extremities. DTRs intact and symmetric. Light touch sensation is intact in face body and extremities. Coordination is intact in upper and lower extremities with hand rotation bilaterally and heel to holm bilaterally. Const: Vital Signs, click to edit/add: Vital Signs - 24 hr 05/02/23 17:06 05/02/23 17:27 05/02/23 17:30 Temperature Pulse Rate 98 98 Pulse Rate [Right Pulse Oximeter] Respiratory Rate Blood Pressure Blood Pressure [Le ft Arm] Pulse Oximetry 100 95 100 Oxygen Delivery Dc thod 05/02/23 17:33 05/02/23 17:34 05/02/23 17:45 Temperature Pulse Rate 109 H 99 102 H Pulse Rate [Right Pulse Oximeter] Respiratory Rate Blood Pressure 179/109 H Blood Pressure [Le ft Arm] Pulse Oximetry 98 95 98 Oxygen Delivery Dc thod 05/02/23 17:49 05/02/23 18:02 05/02/23 18:03 Temperature Pulse Rate 94 100 Pulse Rate [Right Pulse Oximeter] Respiratory Rate Blood Pressure 168/97 H 165/94 H Blood Pressure [Le ft Arm] Pulse Oximetry 98 95 Oxygen Delivery Me od 05/02/23 18:25 05/02/23 18:30 05/02/23 18:33 Temperature Pulse Rate 103 H 101 H 100 Pulse Rate [Right Pulse Oximeter] Respiratory Rate Blood Pressure 153/104 H Blood Pressure [Le ft Arm] Pulse Oximetry 100 100 99 Oxygen Delivery Me od 05/02/23 18:45 05/02/23 18:47 05/02/23 19:00 Temperature Pulse Rate 97 101 H 98 Pulse Rate [Right Pulse Oximeter] Respiratory Rate Blood Pressure 162/95 H Blood Pressure [Le ft Arm] Pulse Oximetry 97 98 100 Oxygen Delivery Me od 05/02/23 19:01 05/02/23 19:02 05/02/23 19:15 Temperature Pulse Rate 96 95 94 Pulse Rate [Right Pulse Oximeter] Respiratory Rate Blood Pressure 160/88 H Blood Pressure [Le ft Arm] Pulse Oximetry 98 96 98 Oxygen Delivery Me od 05/02/23 19:17 05/02/23 21:13 05/02/23 21:13 Temperature 97.8 F Pulse Rate Pulse Rate [Right Pulse Oximeter] 98 Respiratory Rate 16 Blood Pressure 145/87 H Blood Pressure [Le ft Arm] 254/94 H Pulse Oximetry 98 98 Oxygen Delivery [facility] Room Air Room Air 05/02/23 22:51 05/02/23 23:00 05/02/23 23:00 Temperature 98.3 F Pulse Rate 96 Pulse Rate [Right Pulse Oximeter] 94 94 Respiratory Rate 18 18 Blood Pressure Blood Pressure [Le ft Arm] 123/71 Pulse Oximetry 97 Oxygen Delivery [facility] Room Air 05/03/23 03:00 05/03/23 07:52 05/03/23 08:00 Temperature 97.5 F L 97.8 F Pulse Rate 84 Pulse Rate [Right Pulse Oximeter] 98 58 L Respiratory Rate 16 16 Blood Pressure Blood Pressure [Le ft Arm] 141/81 H 143/71 H Pulse Oximetry 95 98 Oxygen Delivery [facility] Room Air Room Air 05/03/23 11:00 05/03/23 15:30 Temperature 97.6 F 98.6 F Pulse Rate Pulse Rate [Right Pulse Oximeter] 62 61 Respiratory Rate 16 16 Blood Pressure Blood Pressure [Le ft Arm] 147/74 H 158/76 H Pulse Oximetry 98 98 Oxygen Delivery Me thod Room Air Room Air Labs Labs: Laboratory Results - last 24 hr 05/02/23 05/02/23 05/02/23 17:12 18:32 22:00 WBC 9.30 RBC 4.44 Hgb 12.3 L Hct 37.8 MCV 85 MCH 28 MCHC 33 RDW Coeff of Raman 13.5 Plt Count 213 Neut % (Auto) 87.9 H Lymph % (Auto) 4.9 L [place] % (Auto) 5.9 Eos % (Auto) 0.0 Baso % (Auto) 0.1 Neut # (Auto) 8.20 H Lymph # (Auto) 0.50 L [place] # (Auto) 0.50 Eos # (Auto) 0.00 Baso # (Auto) 0.01 Abs Immat Gran (auto) 0.11 Imm/Tot Granulo (auto) 1.2 INR 1.11 H Sodium 136 Potassium 3.4 L Chloride 98 Carbon Dioxide 26 BUN 32 H Creatinine 3.0 H Estimated Creat Clear 27.04 Estimated GFR 23 Glucose 121 H Lactate 1.5 Calcium 13.9 H* Phosphorus Magnesium Total Bilirubin 0.7 Direct Bilirubin 0.4 AST 29 ALT 20 Alkaline Phosphatase 78 Troponin I < 0.01 L C-Reactive Protein 0.8 Total Protein 7.3 Albumin 4.3 TSH 0.584 Urine Color Yellow Urine Appearance Clear Urine pH 6.5 Ur Specific [place] 1.010 Urine Protein 1+ A Urine Glucose (UA) 2+ A Urine Ketones Negative Urine Blood 1+ A Urine Nitrite Negative Urine Bilirubin Negative Urine Urobilinogen 0.2 Ur Leukocyte Esterase Negative Urine RBC 0-2 Urine WBC 0-2 Ur Squamous Epith Cells Few Urine Bacteria Few A Salicylates < 1.0 L Urine Opiates Screen Negative Ur Oxycodone Screen Negative Urine Methadone Screen Negative Ur Propoxyphene Screen Negative Acetaminophen < 10.0 L Ur Barbiturates Screen Negative U Tricyclic Antidepress Negative Ur Phencyclidine Scrn Negative Ur Amphetamines Screen Negative U Methamphetamines Scrn Negative U Benzodiazepines Scrn Negative Urine Cocaine Screen Negative U Marijuana (THC) Screen Negative Ur Drug Screen Comment See Note Ethyl Alcohol < 0.01 L Lab Acknowledgement Test Added POC Troponin I 0.02 05/03/23 06:28 WBC 6.52 RBC 4.28 L Hgb 12.0 L Hct 36.7 L MCV 86 MCH 28 MCHC 33 RDW Coeff of Raman 13.8 Plt Count 256 Neut % (Auto) 88.5 H Lymph % (Auto) 7.8 L [place] % (Auto) 3.5 Eos % (Auto) 0.0 Baso % (Auto) 0.0 Neut # (Auto) 5.80 Lymph # (Auto) 0.50 L [place] # (Auto) 0.20 Eos # (Auto) 0.00 Baso # (Auto) 0.00 Abs Immat Gran (auto) 0.01 Imm/Tot Granulo (auto) 0.2 INR Sodium 138 Potassium 3.8 Chloride 106 Carbon Dioxide 24 BUN 33 H Creatinine 2.7 H Estimated Creat Clear 30.04 Estimated GFR 26 Glucose 158 H Lactate Calcium 12.8 H* Phosphorus 2.5 Magnesium 1.9 Total Bilirubin Direct Bilirubin AST ALT Alkaline Phosphatase Troponin I C-Reactive Protein Total Protein Albumin TSH Urine Color Urine Appearance Urine pH Ur Specific [place] Urine Protein Urine Glucose (UA) Urine Ketones Urine Blood Urine Nitrite Urine Bilirubin Urine Urobilinogen Ur Leukocyte Esterase Urine RBC Urine WBC Ur Squamous Epith Cells Urine Bacteria Salicylates Urine Opiates Screen Ur Oxycodone Screen Urine Methadone Screen Ur Propoxyphene Screen Acetaminophen Ur Barbiturates Screen U Tricyclic Antidepress Ur Phencyclidine Scrn Ur Amphetamines Screen U Methamphetamines Scrn U Benzodiazepines Scrn Urine Cocaine Screen U Marijuana (THC) Screen Ur Drug Screen Comment Ethyl Alcohol Lab Acknowledgement POC Troponin I Ordering Physician: Robert Govea M.D. Date of Service: 05/03/23 Procedure(s): MR head/brain wo con Accession Number(s): [id number] cc: Robert Govea M.D.; Ted Hernandez M.D.~ For Patients: As a result of the Century Cures Act, medical imaging exams and procedure reports are released immediately into your electronic medical record. You may view this report before your referring provider. If you have questions, please contact your health care provider. Indication: STROKE SYMPTOMS, RIGHT SIDED WEAKNESS, TROUBLE WALKING Technique: Noncontrast sagittal T1 weighted, axial T2 fast spin echo, FLAIR, SWI, and diffusion weighted images of the head. Comparison: CT head 05/02/2023 Findings: Moderate scattered patchy foci of increased T2 signal within the periventricular and subcortical white matter of both cerebral hemispheres. Mild generalized cerebral parenchymal volume loss. The ventricles, sulci and gyri are of normal size, shape and contour for age and degree of atrophy. No regions of restricted diffusion. Midline structures are centrally located. No convincing evidence of suspicious intra- or extra-axial fluid collections. Mild mucosal thickening in the frontal sinuses. Trace opacification of the mastoid air cells. Impression: 1. No radiographic evidence of acute intracranial abnormalities. 2. Moderate supratentorial white matter changes are non-specific but most likely related to small vessel ischemic disease. Mild cerebral volume loss. Dictated by Peewee Lund MD @ 05/03/2023 10:30:40 AM (Electronically Signed)
--- NOTE | 2023-05-03 18:11 | PC.NURSE ---
Shift Summary: Patient pleasant and cooperative. Up with one assist, walker and gait belt, worked with therapy today. Vitals stable, blood pressure slightly elevated. Continues to have right sided lean when standing and right sided weakness in arm. Requiring set up with meals. Refused sliding scale Novolog, patient stated he would rather use his home medication to manage DM, given teachings on difference between the two, Patient stated he would like to wait until HS to see if blood glucose has improved since he got his home medication late this afternoon.
[2023-05-03] MEDS: ATORVASTATIN 10 MG TABLET 20 MG PO (20:57)
[2023-05-03] MEDS: ENOXAPARIN 30 MG/0.3ML INJ SUBCUT (20:58)
[2023-05-04] VITALS (7 sets, daily range): BP systolic 136–166; BP diastolic 76–94; PULSE 50–60; RESP 14–18; TEMP 36.4–36.7; O2SAT 96–100
[2023-05-04] MEDS: 0.9 % SODIUM CHLORIDE 1000 ml 1,000 ML 200 ML IV ×2 (01:21→06:10)
--- NOTE | 2023-05-04 06:48 | PC.NURSE ---
[id number]: Patient pleasant and cooperative with cares. A1/walker/GB. Strength and coordination on R. side improved since previous shift. No c/o pain. [place] patent.
[2023-05-04 07:48] LABS: Chloride* 109 mmol/L (96-114)
[2023-05-04 07:49] LABS: Potassium* 3.1 mmol/L (3.6-5.1); Sodium* 139 mmol/L (135-149)
[2023-05-04 07:51] LABS: Creatinine* 2.4 mg/dL (0.5-1.5); Estimated Glomerular Filt Rate 30 ml/min
[2023-05-04 07:52] LABS: Blood Urea Nitrogen* 37 mg/dL (7-30); Calcium* 11.6 mg/dL (8.4-10.6); Carbon Dioxide* 21 mmol/L (20-32); Glucose* 127 mg/dL (60-115)
[2023-05-04] MEDS: predniSONE 20 MG TABLET 40 MG PO (08:40)
[2023-05-04] MEDS: EMPAGLIFLOZIN 10 MG TABLET PO (08:40)
[2023-05-04] MEDS: ASPIRIN 81 MG TAB.CHEW PO (08:40)
--- NOTE | 2023-05-04 08:54 | CRLHL7_ITS ---
For Patients: As a result of the Century Cures Act, medical imaging exams and procedure reports are released immediately into your electronic medical record. You may view this report before your referring provider. If you have questions, please contact your health care provider. Indication: Weakness. Urinary retention. Technique: Multiplanar, multisequence MRI of the lumbar spine was performed without intravenous contrast. Comparison: None relevant available. Findings: There are 5 lumbar type vertebral segments identified. The vertebral body heights are maintained without evidence of fracture. There is no discrete T1 hypointense marrow infiltrating process. The conus medullaris terminates at T12-L1, normal. Cauda equina appears unremarkable. T12-L1: No spinal canal or neural foraminal stenosis. L1-2: No spinal canal or neural foraminal stenosis. L2-3: No spinal canal or neural foraminal stenosis. L3-4: Disc degeneration. Minimal disc bulge without spinal canal narrowing. Mild neural foraminal narrowing. Mild facet arthropathy. L4-5: Disc degeneration. Disc bulge with ligamentum flavum thickening result in mild to moderate spinal canal narrowing. Moderate lateral recess narrowing with encroachment upon the descending L5 nerves. Mild to moderate neural foraminal narrowing. Moderate facet arthropathy. L5-S1: Grade 1 anterolisthesis. Disc bulge with mild to moderate spinal canal narrowing. No neural foraminal narrowing. Moderate facet arthropathy. Mild sacroiliac joint osteoarthritis. Impression: 1. At L4-5, mild to moderate spinal canal narrowing with encroachment upon the descending L5 nerves. Mild to moderate neural foraminal narrowing. 2. At L5-S1, mild to moderate neural foraminal narrowing. 3. Mild to moderate facet arthropathy. Dictated by Young Chi MD @ 05/04/2023 11:03:03 AM (Electronically Signed)
[2023-05-04] MEDS: POTASSIUM BICARB 25 MEQ EFFERVESCENT TAB PO ×2 (10:48→12:29)
--- NOTE | 2023-05-04 10:51 | P.IMPN_ITS ---
Progress Note: A&P Assessment and plan (1) Cerebrovascular accident: Problem details: - Initially clinically suspected to have a stroke in the L MCA distribution which seems to have resolved. MRI negative for acute CVA; ECHO prelim unremarkable - continue ASA (Plavix d/c'd 05/03) and therapy assessments, treat hypercalcemia - MRI L spine obtained 05/04 without acute abnormalities Status: Ruled-out (2) Hypercalcemia: Problem details: - source unclear: NANDA, sarcoid, combination - holding Vitamin-D supplement and treat sarcoid, hydrate - defer Zoledronic acid at this time given Ccr <35 Status: Acute (3) Low vitamin D level: Problem details: - 2/2 hypercalcemia; hold high dose vitamin-D supplement Status: Acute (4) Low back pain: Problem details: - No acute abnormalities on CT. MRI obtained 05/04: 1. At L4-5, mild to moderate spinal canal narrowing with encroachment upon the descending L5 nerves. Mild to moderate neural foraminal narrowing. 2. At L5-S1, mild to moderate neural foraminal narrowing. 3. Mild to moderate facet arthropathy. Status: Acute (5) Hypertension: Problem details: - age appropriate control at this time, holding Lisinopril 2/2 NANDA Status: Acute (6) Acute kidney injury: Problem details: - possibly post obstructive, also has DM2 and essential HTN - holding Lisinopril, IVFs started on admission (d/c'd on 05/04 secondary to weight gain/edema) - outpatient baseline creatinine 1.6-1.9 on chart review Status: Acute (7) Diabetes mellitus: Problem details: - typically well controlled; expect some degree of hyperglycemia on steroids - BG 116-214, SSI Status: Acute (8) Sarcoidosis: Problem details: - current hypercalcemia, otherwise not clear that he is having active sarcoidosis - Prednisone (05/03) Status: Acute (9) Acute urinary retention: Problem details: - unclear if this is neurogenic or obstructive in nature - Russ has been placed, creatinine improving - no acute abnormalities on L-Spine MRI 05/04 Status: Acute (10) Aneurysm, cerebral: Problem details: - incidental 2mm right M1 segment aneurysm noted on CTA in ED; unlikely related to presenting symptoms - outpatient f/u; consider telehealth consultation with [facility]'s Neurointerventional team for management of this aneurysm . Status: Acute Plan - per above - ASA and Lovenox for ppx - [facility]; currently no beds available - may require SNF upon discharge - updated by phone, questions answered Subjective Date Seen: 05/04/23 Interval history: Patient has no concerns for hospitalist team today. He continues to have mild low back pain and right sided weakness, more notable in the lower extremity. He is continuing to work with our therapy teams. Brain MRI did not reveal any acute abnormality. 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, slightly decreased plantar flexion of right lower extremity Skin: No concerning skin lesions or rashes on exposed skin Psych: Appropriate Const: Vital Signs, click to edit/add: Vital Signs - 24 hr 05/03/23 11:00 05/03/23 15:30 05/03/23 17:38 Temperature 97.6 F 98.6 F Pulse Rate 69 Pulse Rate [Right Pulse Oximeter] 62 61 Respiratory Rate 16 16 Blood Pressure [Le ft Arm] 147/74 H 158/76 H Pulse Oximetry 98 98 Oxygen Delivery Me thod Room Air Room Air 05/03/23 20:26 05/03/23 22:02 05/03/23 23:00 Temperature 98.5 F 98.1 F Pulse Rate 47 L Pulse Rate [Right Pulse Oximeter] 54 L 61 Respiratory Rate 16 16 Blood Pressure [Le ft Arm] 144/85 H 109/64 Pulse Oximetry 98 96 Oxygen Delivery Me thod Room Air Room Air 05/04/23 03:26 05/04/23 07:49 Temperature 98.0 F 97.8 F Pulse Rate Pulse Rate [Right Pulse Oximeter] 53 L 52 L Respiratory Rate 18 18 Blood Pressure [Le ft Arm] 136/76 158/83 H Pulse Oximetry 96 100 Oxygen Delivery Wy thod Room Air Room Air Labs Labs: Laboratory Results - last 24 hr 05/04/23 07:03 Sodium 139 Potassium 3.1 L Chloride 109 Carbon Dioxide 21 BUN 37 H Creatinine 2.4 H Estimated Creat Clear 33.80 Estimated GFR 30 Glucose 127 H Calcium 11.6 H
--- NOTE | 2023-05-04 13:45 | PC.NURSE ---
Pt pleasant, cooperative, and talkative. Pt alert and oriented. Pt uses call light appropriately. Pt had no complaints of pain during shift. Pt assist of one with walker. Russ patent. Pt saline locked at 9am. Slight right sided weakness; swelling in hands bilaterally. VSS. Pt had elevated blood pressures and is bradycardic. Pt had MRI at 946 this morning; nothing remarkable was found.?
[2023-05-04] MEDS: FUROSEMIDE 10 MG/ML inj 20 MG IVP (14:44)
[2023-05-04] MEDS: SODIUM CHLORIDE 0.9 % (FLUSH) 10 ML SYRINGE 5 ML IVF (14:45)
--- NOTE | 2023-05-04 16:27 | PC.SOCIAL ---
Met with pt. to discuss discharge plans. Pt. is hoping [place] be [place]. Discussed pt.'s insurance and notified pt. he has a prison home benefit after he meets his $7,000 deductible. If pt. stays will need a prior auth. for his insurance if he discharges to a SNF. banking services clerk will follow-up with discharge planning needs.
--- NOTE | 2023-05-04 18:42 | PC.NURSE ---
Pt calm, cooperative and appropriate with nsg interventions. BG 185, pt reeived 2 units of SS insulin. 100% of dinner. Visiting with his [place]ina and dtr Carolyn. Pt denies pain or anxiety. [facility]. Tele indicates sinus bradycardia.
[2023-05-04] MEDS: 0.9 % SODIUM CHLORIDE 1000 ml 1,000 ML 125 ML IV (21:05)
[2023-05-04] MEDS: ATORVASTATIN 10 MG TABLET 20 MG PO (21:05)
[2023-05-04] MEDS: ENOXAPARIN 30 MG/0.3ML INJ SUBCUT (21:05)
[2023-05-05] VITALS (8 sets, daily range): BP systolic 139–162; BP diastolic 75–88; PULSE 52–77; RESP 14–18; TEMP 36.4–37.1; O2SAT 95–99
[2023-05-05] MEDS: 0.9 % SODIUM CHLORIDE 1000 ml 1,000 ML 125 ML IV (04:48)
--- NOTE | 2023-05-05 05:57 | PC.NURSE ---
Patient alert and oriented x 4, does have periods of time where he searches for words but is able to find the word he's looking for and complete his thoughts/comments/questions. Denies any pain this shift, appears comfortable. IV maintenance fluid restart at 2100 per order. Russ catheter patent and draining clear, yellow urine. Oral fluid intake adequate. Transfers with stand by assist with walker. BLE edema +1. Bowel sounds active x 4 quadrants. Denies any dizziness, lightheadedness. Right and left upper and lower extremities equal in strength.
[2023-05-05 07:37] LABS: Basophils Absolute Auto 0.01 K/uL (0.00-0.30); Basophils Percent Auto 0.1 % (0.0-3.0); Eosinophils Absolute Auto 0.02 K/uL (0.00-0.50); Eosinophils Percent Auto 0.2 % (0.0-7.0); Hematocrit 35.8 % (37.0-53.0); Hemoglobin* 12.1 gm/dL (13.5-17.5); Immature Granulocytes Abs Auto 0.01 K/uL (0.00-0.30); Immature Granulocytes Pct Auto 0.1 %; Lymphocytes Percent Auto 7.4 % (20-44); Mean Corpuscular HGB Conc 34 gm/dL (32-36); Mean Corpuscular Hemoglobin 28 pg (26-34); Mean Corpuscular Volume 83 fL (80-100); Monocytes Percent Auto 11.1 % (0.0-11.0); Neutrophils Percent Auto 81.1 % (42.0-72.0); Platelet Count* 277 K/uL (140-440); RDW Coefficient of Variation % 13.6 % (11.5-15.5); White Blood Count* 9.22 K/uL (4.50-11.00)
[2023-05-05 07:40] LABS: Slide Review Reflex No
[2023-05-05 07:56] LABS: Chloride* 108 mmol/L (96-114)
[2023-05-05 07:57] LABS: Albumin* 2.9 g/dL (3.3-5.0); Sodium* 138 mmol/L (135-149)
[2023-05-05 07:59] LABS: Creatinine* 2.2 mg/dL (0.5-1.5); Est. Creatinine Clearance* 36.87; Estimated Glomerular Filt Rate 33 ml/min
[2023-05-05 08:00] LABS: Alanine Aminotransferase* 21 U/L (4-50); Alkaline Phosphatase* 63 U/L (40-150); Aspartate Amino Transferase* 27 U/L (12-35); Bilirubin Total* 0.4 mg/dL (0.1-1.5); Blood Urea Nitrogen* 35 mg/dL (7-30); Calcium* 10.7 mg/dL (8.4-10.6); Carbon Dioxide* 20 mmol/L (20-32); Glucose* 118 mg/dL (60-115); Phosphorus* 2.6 mg/dL (2.5-4.5); Total Protein* 5.6 g/dL (6.0-8.3); Uric Acid* 7.6 mg/dL (2.2-8.4)
[2023-05-05 08:01] LABS: Magnesium* 1.6 mg/dL (1.5-2.6)
[2023-05-05 08:03] LABS: Potassium* 2.8 mmol/L (3.6-5.1)
[2023-05-05] MEDS: predniSONE 20 MG TABLET 40 MG PO (08:13)
[2023-05-05] MEDS: ASPIRIN 81 MG TAB.CHEW PO (08:14)
[2023-05-05] MEDS: EMPAGLIFLOZIN 10 MG TABLET PO (08:14)
--- NOTE | 2023-05-05 08:15 | CRLHL7_ITS ---
For Patients: As a result of the Century Cures Act, medical imaging exams and procedure reports are released immediately into your electronic medical record. You may view this report before your referring provider. If you have questions, please contact your health care provider. Indication: Right upper extremity weakness Technique: Multiplanar, multisequence MRI of the thoracic spine, obtained without contrast. Comparison: Same-day MRI thoracic spine Findings: Exaggerated thoracic kyphosis. No significant spondylolisthesis. Mild chronic anterior wedge configuration of the mid thoracic vertebrae. Multilevel endplate Schmorl`s nodes. The mid and lower thoracic as well as included upper lumbar spine. Innumerable T1 hypointense, STIR hyperintense marrow lesions throughout the visualized osseous structures, although best visualized throughout the vertebral bodies. The spinal cord appears normal in course and caliber. There is mild dorsal lateral cord surface deformity at T10-11, secondary to facet arthropathy and ligamentum flavum laxity. However, no evidence of focal cord compression or convincing cord signal abnormality. Mild scattered degenerative disc changes. No suspicious focal protrusions or extrusions. Mild-moderate spinal canal narrowing at T10-11 from facet arthropathy/ligamentum flavum laxity. No evidence of significant neural foraminal stenosis. The prevertebral and paraspinal soft tissues are unremarkable. Trace bilateral pleural effusions. Impression: 1. Innumerable T1 hypointense, STIR hyperintense marrow lesions throughout the visualized vertebral bodies, nonspecific, but concerning for neoplastic/metastatic process such as multiple myeloma. Clinical and laboratory correlation is advised. 2. Exaggerated thoracic kyphosis, with mild chronic anterior wedge configuration of the mid thoracic vertebrae, and scattered spondylosis changes. 3. Mild-moderate spinal canal narrowing at T10-11 from facet arthropathy/ligamentum flavum laxity. 4. Trace bilateral pleural effusions. Dictated by Clare Hayden MD @ 05/05/2023 1:51:34 PM (Electronically Signed)
--- NOTE | 2023-05-05 08:15 | CRLHL7_ITS ---
For Patients: As a result of the Century Cures Act, medical imaging exams and procedure reports are released immediately into your electronic medical record. You may view this report before your referring provider. If you have questions, please contact your health care provider. Indication: Right upper extremity weakness Technique: Multiplanar, multisequence MRI of the cervical spine obtained without contrast. Comparison: No relevant comparison studies available at this institution. Findings: Mildly exaggerated cervical lordosis. Grade 1 retrolisthesis at C5-6. No acute osseus abnormality. Unremarkable bone marrow signal. No suspicious findings identified within the included posterior fossa. Visualized spinal cord appears normal in course and caliber. There is mild cord surface flattening deformity at the C5-6 level, secondary to spondylosis. However, no evidence of overt cord compression or convincing cord signal abnormality. Prevertebral and paraspinal soft tissues are unremarkable. C2-C3, C3-C4: No significant neuroforaminal or spinal canal stenosis. C4-C5: Shallow posterior disc bulge with right subarticular/foraminal protrusion and bilateral uncovertebral arthropathy. Mild left, moderate right neural foraminal stenosis with potential right C5 nerve root impingement. Mild spinal canal narrowing. C5-C6: Retrolisthesis, posterior disc-osteophyte complex, uncovertebral arthropathy. Moderate-severe bilateral neural foraminal stenosis with potential bilateral C6 nerve root impingement. Moderate-severe spinal canal stenosis. C6-C7, C7-T1: No significant neuroforaminal or spinal canal stenosis. Impression: 1. Cervical spondylosis as detailed. No acute osseous abnormality. 2. At C4-5, moderate right neural foraminal stenosis with potential right C5 nerve root impingement, and mild spinal canal narrowing. 3. At C5-6, moderate-severe bilateral neural foraminal stenosis with likely bilateral C6 nerve root impingement, and moderate-severe spinal canal stenosis. Dictated by Clare Hayden MD @ 05/05/2023 1:40:22 PM (Electronically Signed)
--- NOTE | 2023-05-05 09:04 | PM.IMPN1 ---
Progress Note: A&P Assessment and plan (1) Neurological abnormality: Problem details: - Initially had clinical suspicion of a stroke in the L MCA distribution; MRI negative for acute CVA, TTE results below - continue ASA (Plavix d/c'd 05/03) and therapy assessments, treat hypercalcemia - also noted to have urinary retention on admission, persistent clumsiness vs weakness of RUE and RLE. No evidence of acute illness or symptom progression - MRI L spine obtained 05/04 without acute abnormalities, T and C spine ordered for 05/05 TTE Final Impressions: 1. Normal left ventricular size, moderately increased wall thickness, normal global systolic function, calculated EF of 62 %. 2. Right ventricular cavity size is normal, global systolic RV function is normal. 3. Borderline increased estimated pulmonary pressures by tricuspid regurgitation velocity and right atrial pressure (33 mmHg plus RAP). Comparison There are no prior studies on this patient for comparison purposes. Status: Acute (2) Aneurysm, cerebral: Problem details: - incidental 2mm right M1 segment aneurysm noted on CTA in ED; unlikely related to presenting symptoms - outpatient f/u; consider telehealth consultation with [facility]'s Neurointerventional team for management of this aneurysm . Status: Acute (3) Low vitamin D level: Problem details: - 2/2 hypercalcemia; holding high dose vitamin-D supplement Status: Acute (4) Low back pain: Problem details: - No acute abnormalities on CT. MRI obtained 05/04: 1. At L4-5, mild to moderate spinal canal narrowing with encroachment upon the descending L5 nerves. Mild to moderate neural foraminal narrowing. 2. At L5-S1, mild to moderate neural foraminal narrowing. 3. Mild to moderate facet arthropathy. Status: Acute (5) Hypertension: Problem details: - age appropriate control at this time, holding Lisinopril 2/2 NANDA Status: Acute (6) Acute kidney injury: Problem details: - possibly post obstructive, also has DM2 and essential HTN - holding Lisinopril, IVFs started on admission (d/c'd on 05/04 secondary to weight gain/edema) - has continued to improve since admission - outpatient baseline creatinine 1.6-1.9 on chart review Status: Acute (7) Diabetes mellitus: Problem details: - typically well controlled; expect some degree of hyperglycemia on Prednisone - BG 116-214, SSI Status: Acute (8) Sarcoidosis: Problem details: - current hypercalcemia, otherwise not clear that he is having active sarcoidosis - reassuring CT of chest on admission - Prednisone initiated at 20mg (05/03), stopped on 05/05 given normalization of calcium, reassuring respiratory exam, reassuring CT Status: Acute (9) Acute urinary retention: Problem details: - unclear if this is neurogenic or obstructive in nature - Russ placed 05/02, creatinine improving - no acute abnormalities on L-Spine MRI 05/04 Status: Acute (10) Hypercalcemia: Problem details: - source unclear: NANDA, sarcoid, combination - holding Vitamin-D supplement and treat sarcoid, hydrate - deferred Zoledronic acid on admission given low creatinine clearance, calcium has now improved to <11 (05/05) Status: Acute Plan - further imaging as noted above - [facility] for possible [facility]/Neurological workup - pending clinical course, may need SNF upon discharge Subjective Date Seen: 05/05/23 Interval history: Steve notes mild right shoulder pain today, after dropping his remote on the floor and having to bend over to pick it up. No paresthesias. Continues to have clumsiness of RUE and weakness when walking. No worsening of symptoms. No difficulty breathing. No CP. No muscle twitching. Exam Narrative: Exam Narrative: GEN: Alert and oriented, answering questions appropriately HEENT: EOMIs bilaterally, no scleral icterus CV: RRR, No concerning murmurs R: LCTA bilaterally without concerning wheezing, rales, or rhonchi Ext: wwp, no concerning edema Skin: No concerning skin lesions or rashes on exposed skin Neuro: Mild dysmetria on finger to nose testing, negative Romberg, tongue protrudes midline, no facial droop, mild decrease in etl architect strength R>L, gait not observed Psych: Appropriate Const: Vital Signs, click to edit/add: Vital Signs - 24 hr 05/04/23 11:16 05/04/23 11:43 05/04/23 15:00 Temperature 97.8 F Pulse Rate 57 L 60 Pulse Rate [Left A pical] Pulse Rate [Right Pulse Oximeter] 57 L Respiratory Rate 18 Blood Pressure [Le ft Arm] 145/94 H Pulse Oximetry 98 Oxygen Delivery Me thod Room Air 05/04/23 15:00 05/04/23 19:00 05/04/23 23:00 Temperature 97.5 F L 97.6 F 97.6 F Pulse Rate Pulse Rate [Left A pical] 60 Pulse Rate [Right Pulse Oximeter] 60 50 L 52 L Respiratory Rate 16 18 14 Blood Pressure [Le ft Arm] 153/78 H 166/89 H 154/85 H Pulse Oximetry 99 98 98 Oxygen Delivery Me thod Room Air Room Air Room Air 05/05/23 00:31 05/05/23 03:00 05/05/23 07:00 Temperature 97.6 F Pulse Rate 61 60 Pulse Rate [Left A pical] Pulse Rate [Right Pulse Oximeter] 57 L Respiratory Rate 18 Blood Pressure [Le ft Arm] 160/85 H Pulse Oximetry 95 Oxygen Delivery In thod Room Air 05/05/23 07:35 Temperature 97.8 F Pulse Rate Pulse Rate [Left A pical] 59 L Pulse Rate [Right Pulse Oximeter] 59 L Respiratory Rate 16 Blood Pressure [Le ft Arm] 162/86 H Pulse Oximetry 96 Oxygen Delivery In thod Room Air Labs Labs: Laboratory Results - last 24 hr 05/02/23 05/05/23 17:12 07:14 WBC 9.22 RBC 4.30 Hgb 12.1 L Hct 35.8 L MCV 83 MCH 28 MCHC 34 RDW Coeff of Raman 13.6 Plt Count 277 Neut % (Auto) 81.1 H Lymph % (Auto) 7.4 L [place] % (Auto) 11.1 H Eos % (Auto) 0.2 Baso % (Auto) 0.1 Neut # (Auto) 7.50 H Lymph # (Auto) 0.70 L [place] # (Auto) 1.00 H Eos # (Auto) 0.02 Baso # (Auto) 0.01 Abs Immat Gran (auto) 0.01 Imm/Tot Granulo (auto) 0.1 Sodium 138 Potassium 2.8 L* Chloride 108 Carbon Dioxide 20 BUN 35 H Creatinine 2.2 H Estimated Creat Clear 36.87 Estimated GFR 33 Glucose 118 H Uric Acid 7.6 Calcium 10.7 H Phosphorus 2.6 Magnesium 1.6 Total Bilirubin 0.4 AST 27 ALT 21 Alkaline Phosphatase 63 Total Protein 5.6 L Albumin 2.9 L PTH Intact pmol/L 19 Calcium (PTH Intact) 14.5 H
[2023-05-05] MEDS: POTASSIUM BICARB 25 MEQ EFFERVESCENT TAB PO ×4 (09:26→15:34)
[2023-05-05 14:24] LABS: Erythrocyte SedimentationRate* 6 mm/hr (2-15)
--- NOTE | 2023-05-05 15:36 | PC.NURSE ---
MRI screening form completed and films done as ordered. Dr. Garcia aware of results and discussed new dx of multiple myeloma with pt this afternoon. BG levels 114 at bkfst and BG 312 at lunch w/ss coverage. Pt showered with OT and ambulated/exercised with PT. No dysphagia with meds or signs of worsening neurological status. Tele NSR this am, sample card maker discontinued per verbal order from Radha Garcia. Continue plan of care. Awaiting bed at [facility] for neurology and possibly oncology. Pleasant and talkative, some repetitive stories when he speaks.
[2023-05-05] MEDS: ENOXAPARIN 30 MG/0.3ML INJ SUBCUT (21:04)
[2023-05-05] MEDS: SODIUM CHLORIDE 0.9 % (FLUSH) 10 ML SYRINGE 5 ML IVF (21:04)
[2023-05-05] MEDS: ATORVASTATIN 10 MG TABLET 20 MG PO (21:04)
[2023-05-06 03:00] VITALS: BP 156/86; PULSE 54; RESP 16; TEMP 36.7; O2SAT 98
[2023-05-06 07:35] LABS: Basophils Absolute Auto 0.01 K/uL (0.00-0.30); Basophils Percent Auto 0.1 % (0.0-3.0); Eosinophils Absolute Auto 0.16 K/uL (0.00-0.50); Eosinophils Percent Auto 1.5 % (0.0-7.0); Hematocrit 37.2 % (37.0-53.0); Hemoglobin* 12.5 gm/dL (13.5-17.5); Immature Granulocytes Abs Auto 0.02 K/uL (0.00-0.30); Immature Granulocytes Pct Auto 0.2 %; Lymphocytes Percent Auto 7.1 % (20-44); Mean Corpuscular HGB Conc 34 gm/dL (32-36); Mean Corpuscular Hemoglobin 28 pg (26-34); Mean Corpuscular Volume 84 fL (80-100); Monocytes Percent Auto 11.9 % (0.0-11.0); Neutrophils Percent Auto 79.2 % (42.0-72.0); Platelet Count* 280 K/uL (140-440); RDW Coefficient of Variation % 13.6 % (11.5-15.5); Red Blood Count 4.45 m/uL (4.30-5.90); White Blood Count* 10.47 K/uL (4.50-11.00)
[2023-05-06 07:41] LABS: Slide Review Reflex No
[2023-05-06 07:49] LABS: Albumin* 3.3 g/dL (3.3-5.0); Chloride* 105 mmol/L (96-114)
[2023-05-06 07:50] LABS: Sodium* 137 mmol/L (135-149)
[2023-05-06 07:52] LABS: Alkaline Phosphatase* 63 U/L (40-150); Aspartate Amino Transferase* 25 U/L (12-35); Bilirubin Total* 0.5 mg/dL (0.1-1.5); Blood Urea Nitrogen* 35 mg/dL (7-30); Carbon Dioxide* 27 mmol/L (20-32); Creatinine* 2.1 mg/dL (0.5-1.5); Est. Creatinine Clearance* 38.62; Estimated Glomerular Filt Rate 35 ml/min; Glucose* 110 mg/dL (60-115); Total Protein* 6.1 g/dL (6.0-8.3)
[2023-05-06 07:53] LABS: Alanine Aminotransferase* 23 U/L (4-50); Calcium* 10.5 mg/dL (8.4-10.6)
[2023-05-06 08:03] LABS: Potassium* 2.9 mmol/L (3.6-5.1)
[2023-05-06 08:14] VITALS: BP 156/77; PULSE 81; RESP 18; TEMP 36.4; O2SAT 100
[2023-05-06] MEDS: POTASSIUM CHLORIDE 10 MEQ CAPSULE ER 20 MEQ PO ×2 (08:33→17:36)
[2023-05-06] MEDS: ASPIRIN 81 MG TAB.CHEW PO (08:33)
[2023-05-06] MEDS: POTASSIUM BICARB 25 MEQ EFFERVESCENT TAB PO ×5 (08:33→16:43)
[2023-05-06] MEDS: EMPAGLIFLOZIN 10 MG TABLET PO (08:33)
[2023-05-06] MEDS: SODIUM CHLORIDE 0.9 % (FLUSH) 10 ML SYRINGE 5 ML IVF ×2 (08:34→20:45)
--- NOTE | 2023-05-06 10:35 | P.IMPN_ITS ---
Progress Note: A&P Assessment and plan (1) Neurological abnormality: Problem details: - Initially had clinical suspicion of a stroke in the L MCA distribution; MRI negative for acute CVA, TTE results below - continue ASA (Plavix d/c'd 05/03) and therapy assessments, treat hypercalcemia - also noted to have urinary retention on admission, persistent clumsiness vs weakness of RUE and RLE. No evidence of acute illness or symptom progression - MRI L spine obtained 05/04 without acute abnormalities, T spine revealed abnormalities (see below), C spine normal TTE Final Impressions: 1. Normal left ventricular size, moderately increased wall thickness, normal global systolic function, calculated EF of 62 %. 2. Right ventricular cavity size is normal, global systolic RV function is normal. 3. Borderline increased estimated pulmonary pressures by tricuspid regurgitation velocity and right atrial pressure (33 mmHg plus RAP). Comparison There are no prior studies on this patient for comparison purposes. Status: Acute (2) Abnormal MRI: Problem details: - T spine MRI obtained 05/05 with findings below: - SPEP and peripheral smear ordered 05/05, results pending Impression: 1. Innumerable T1 hypointense, STIR hyperintense marrow lesions throughout the visualized vertebral bodies, nonspecific, but concerning for neoplastic/metastatic process such as multiple myeloma. Clinical and laboratory correlation is advised. 2. Exaggerated thoracic kyphosis, with mild chronic anterior wedge configuration of the mid thoracic vertebrae, and scattered spondylosis changes. 3. Mild-moderate spinal canal narrowing at T10-11 from facet arthropathy/ligamentum flavum laxity. 4. Trace bilateral pleural effusions. Dictated by Clare Hayden MD @ 05/05/2023 1:51:34 PM Status: Acute (3) Hypercalcemia: Problem details: - source unclear: NANDA, sarcoid, Multiple Myeloma, combination - holding Vitamin-D supplement and treat sarcoid, hydrate - deferred Zoledronic acid on admission given low creatinine clearance, calcium has now improved to <11 (05/05) Status: Acute (4) Acute kidney injury: Problem details: - possibly post obstructive, also has DM2 and essential HTN (could be related to multiple myeloma as well) - holding Lisinopril, IVFs started on admission (d/c'd on 05/04 secondary to weight gain/edema) - has continued to improve since admission - outpatient baseline creatinine 1.6-1.9 on chart review Status: Acute (5) Aneurysm, cerebral: Problem details: - incidental 2mm right M1 segment aneurysm noted on CTA in ED; unlikely related to presenting symptoms - outpatient f/u; consider telehealth consultation with [facility]'s Neurointerventional team for management of this aneurysm . Status: Acute (6) Low vitamin D level: Problem details: - 2/2 hypercalcemia; holding high dose vitamin-D supplement Status: Acute (7) Low back pain: Problem details: - No acute abnormalities on CT. MRI obtained 05/04: 1. At L4-5, mild to moderate spinal canal narrowing with encroachment upon the descending L5 nerves. Mild to moderate neural foraminal narrowing. 2. At L5-S1, mild to moderate neural foraminal narrowing. 3. Mild to moderate facet arthropathy. Status: Acute (8) Hypertension: Problem details: - age appropriate control at this time, holding Lisinopril 2/2 NANDA Status: Acute (9) Diabetes mellitus: Problem details: - typically well controlled; expect some degree of hyperglycemia on Prednisone - BG 116-214, SSI Status: Acute (10) Sarcoidosis: Problem details: - current hypercalcemia, otherwise not clear that he is having active sarcoidosis - reassuring CT of chest on admission - Prednisone initiated at 20mg (05/03), stopped on 05/05 given normalization of calcium, reassuring respiratory exam, reassuring CT Status: Acute (11) Acute urinary retention: Problem details: - unclear if this is neurogenic or obstructive in nature - Russ placed 05/02, creatinine improving - no acute abnormalities on L-Spine MRI 05/04 Status: Acute Plan - per above - Lovenox for ppx - dispo: Patient does not meet criteria for SNF placement at this time. He does have family members who can be with him 247. We have attempted daily to transfer him to the [facility], but they do not have beds available - continue to manage acute problems (hypokalemia, etc) - As of today, our plan will be to discharge him home with 24/7 caregiving when medically appropriate with very close PCP follow-up at the [facility] Subjective Date Seen: 05/06/23 Interval history: Cristóbal has no concerns for hospitalist team this morning. He is awaiting the results of his peripheral smear (performed for concerning findings on imaging, evaluating for multiple myeloma). He has no chest pain or shortness of breath. He continues to work with our therapy teams. Denies myoclonus or fasciculations. Intermittently has tremor of R hand (occasionally at rest, other times intention tremor). Exam Narrative: Exam Narrative: GEN: Alert and oriented, sitting comfortably in bedside chair HEENT: Dentition is poor without any acute infection or abscess, no scleral icterus CV: RRR, No concerning murmurs R: LCTA bilaterally without concerning wheezing, air movement adequate Ext: wwp, no concerning edema Skin: No concerning skin lesions or rashes on exposed skin Neuro: DTRs 2+ bilateral patellae and brisk, no fasciculations, gait not observed Psych: Appropriate Const: Vital Signs, click to edit/add: Vital Signs - 24 hr 05/05/23 14:00 05/05/23 15:00 05/05/23 15:00 Temperature 98.7 F 97.5 F L Pulse Rate [Left A pical] 73 Pulse Rate [Right Pulse Oximeter] 73 77 76 Respiratory Rate 18 18 18 Blood Pressure [Le ft Arm] 139/83 151/79 H Pulse Oximetry 99 [facility] 05/05/23 18:56 05/05/23 23:00 05/06/23 03:00 Temperature 98.0 F 98.0 F 98.0 F Pulse Rate [Left A pical] Pulse Rate [Right Pulse Oximeter] 76 52 L 54 L Respiratory Rate 18 14 16 Blood Pressure [Le ft Arm] 143/88 H 141/75 H 156/86 H Pulse Oximetry 99 95 98 [facility] Room Air 05/06/23 08:14 Temperature 97.6 F Pulse Rate [Left A pical] Pulse Rate [Right Pulse Oximeter] 81 Respiratory Rate 18 Blood Pressure [Le ft Arm] 156/77 H Pulse Oximetry 100 [facility] Labs Labs: Laboratory Results - last 24 hr 05/05/23 05/06/23 07:14 07:22 WBC 10.47 RBC 4.45 Hgb 12.5 L Hct 37.2 MCV 84 MCH 28 MCHC 34 RDW Coeff of Raman 13.6 Plt Count 280 Neut % (Auto) 79.2 H Lymph % (Auto) 7.1 L [place] % (Auto) 11.9 H Eos % (Auto) 1.5 Baso % (Auto) 0.1 Neut # (Auto) 8.30 H Lymph # (Auto) 0.70 L [place] # (Auto) 1.20 H Eos # (Auto) 0.16 Baso # (Auto) 0.01 Abs Immat Gran (auto) 0.02 Imm/Tot Granulo (auto) 0.2 ESR 6 Sodium 137 Potassium 2.9 L* Chloride 105 Carbon Dioxide 27 BUN 35 H Creatinine 2.1 H Estimated Creat Clear 38.62 Estimated GFR 35 Glucose 110 Calcium 10.5 Total Bilirubin 0.5 AST 25 ALT 23 Alkaline Phosphatase 63 Total Protein 6.1 Albumin 3.3 Lab Acknowledgement Test Added
[2023-05-06 11:37] VITALS: BP 136/73; PULSE 81; RESP 18; TEMP 36.4; O2SAT 99
--- NOTE | 2023-05-06 14:32 | PC.NURSE ---
shift note; pt up sba & GB to recliner/ambulating in hussein. ellsworth present and patent with light brandon urine. neuro check this a.m noted rt pupil slower than lt in light response. Pt has jumping to lt eye when looking towards the lt. Pt states he becomes slightly dizzy with initial standing from supine position. Pt states his memory is cloudy at times. pt has slightly garbled speech. LS clr. IV site intact/patent.
[2023-05-06 15:00] VITALS: BP 148/84; PULSE 88; RESP 16; TEMP 36.4; O2SAT 97
[2023-05-06 19:00] VITALS: BP 155/103; PULSE 73; RESP 15; TEMP 36.7; O2SAT 95
[2023-05-06 19:41] LABS: Potassium* 3.8 mmol/L (3.6-5.1)
[2023-05-06] MEDS: ENOXAPARIN 30 MG/0.3ML INJ SUBCUT (20:44)
[2023-05-06] MEDS: ATORVASTATIN 10 MG TABLET 20 MG PO (20:45)
[2023-05-06 23:00] VITALS: BP 166/88; PULSE 73; PULSE 92; RESP 15; RESP 18; TEMP 36.9; O2SAT 95
[2023-05-07 03:00] VITALS: BP 147/89; PULSE 82; RESP 18; TEMP 37; O2SAT 95
[2023-05-07] MEDS: ACETAMINOPHEN 325 MG TABLET 650 MG PO (05:55)
--- NOTE | 2023-05-07 06:11 | PC.NURSE ---
Shift note: Pt is doing well. Alert and oriented. Cheerful and ask questions about condition. Pt complained of periorbital pain with mild headache of about 3/10. Tylenol given. Ambulate with A1. No SOB, Chest pain or cough observed. Urinary catheter is patent and draining brandon colored urine with normal odor.
[2023-05-07 07:19] LABS: Basophils Absolute Auto 0.01 K/uL (0.00-0.30); Basophils Percent Auto 0.2 % (0.0-3.0); Eosinophils Absolute Auto 0.41 K/uL (0.00-0.50); Eosinophils Percent Auto 6.3 % (0.0-7.0); Hematocrit 36.4 % (37.0-53.0); Hemoglobin* 12.1 gm/dL (13.5-17.5); Immature Granulocytes Abs Auto 0.02 K/uL (0.00-0.30); Immature Granulocytes Pct Auto 0.3 %; Lymphocytes Percent Auto 8.5 % (20-44); Mean Corpuscular HGB Conc 33 gm/dL (32-36); Mean Corpuscular Hemoglobin 28 pg (26-34); Mean Corpuscular Volume 84 fL (80-100); Monocytes Percent Auto 15.2 % (0.0-11.0); Neutrophils Absolute Auto 4.49 K/uL (1.7-7.0); Neutrophils Percent Auto 69.5 % (42.0-72.0); Platelet Count* 281 K/uL (140-440); RDW Coefficient of Variation % 13.7 % (11.5-15.5); Red Blood Count 4.34 m/uL (4.30-5.90); White Blood Count* 6.46 K/uL (4.50-11.00)
[2023-05-07 07:22] LABS: Slide Review Reflex No
[2023-05-07 07:42] LABS: Chloride* 102 mmol/L (96-114); Potassium* 3.7 mmol/L (3.6-5.1); Sodium* 136 mmol/L (135-149)
[2023-05-07 07:45] LABS: Blood Urea Nitrogen* 34 mg/dL (7-30); Carbon Dioxide* 30 mmol/L (20-32); Creatinine* 2.3 mg/dL (0.5-1.5); Est. Creatinine Clearance* 35.27; Estimated Glomerular Filt Rate 32 ml/min; Glucose* 104 mg/dL (60-115)
[2023-05-07 07:46] LABS: Calcium* 10.4 mg/dL (8.4-10.6); Magnesium* 1.5 mg/dL (1.5-2.6)
[2023-05-07] MEDS: ASPIRIN 81 MG TAB.CHEW PO (08:32)
[2023-05-07] MEDS: EMPAGLIFLOZIN 10 MG TABLET PO (08:32)
[2023-05-07] MEDS: POTASSIUM CHLORIDE 10 MEQ CAPSULE ER 20 MEQ PO ×2 (08:32→17:40)
[2023-05-07] MEDS: SODIUM CHLORIDE 0.9 % (FLUSH) 10 ML SYRINGE 5 ML IVF ×2 (08:49→20:43)
[2023-05-07 08:56] VITALS: BP 147/85; PULSE 78; RESP 18; TEMP 36.4; O2SAT 99
--- NOTE | 2023-05-07 11:17 | P.IMPN_ITS ---
Progress Note: A&P Assessment and plan (1) Neurological abnormality: Problem details: - Initially had clinical suspicion of a stroke in the L MCA distribution; MRI negative for acute CVA, TTE results below - continue ASA (Plavix d/c'd 05/03) and therapy assessments - also noted to have urinary retention on admission, persistent clumsiness vs weakness of RUE and RLE. No evidence of acute illness or symptom progression - MRI L spine obtained 05/04 without acute abnormalities, T spine revealed abnormalities (see below), C spine normal on 05/05 TTE Final Impressions: 1. Normal left ventricular size, moderately increased wall thickness, normal global systolic function, calculated EF of 62 %. 2. Right ventricular cavity size is normal, global systolic RV function is normal. 3. Borderline increased estimated pulmonary pressures by tricuspid regurgitation velocity and right atrial pressure (33 mmHg plus RAP). Comparison There are no prior studies on this patient for comparison purposes. Status: Acute (2) Abnormal MRI: Problem details: - T spine MRI obtained 05/05 with findings below: - peripheral smear does exhibit rouleaux formations, SPEP pending Impression: 1. Innumerable T1 hypointense, STIR hyperintense marrow lesions throughout the visualized vertebral bodies, nonspecific, but concerning for neoplastic/metastatic process such as multiple myeloma. Clinical and laboratory correlation is advised. 2. Exaggerated thoracic kyphosis, with mild chronic anterior wedge configuration of the mid thoracic vertebrae, and scattered spondylosis changes. 3. Mild-moderate spinal canal narrowing at T10-11 from facet arthropathy/ligamentum flavum laxity. 4. Trace bilateral pleural effusions. Dictated by Clare Hayden MD @ 05/05/2023 1:51:34 PM Status: Acute (3) Hypercalcemia: Problem details: - source unclear: NANDA, sarcoid, Multiple Myeloma, etc - holding Vitamin-D supplement, hydrated with IVFs days 1-3 - deferred Zoledronic acid on admission given low creatinine clearance, Calcium then improved to <11 Status: Acute (4) Acute kidney injury: Problem details: - possibly post obstructive, also has DM2 and essential HTN (could be related to multiple myeloma as well) - holding Lisinopril, IVFs started on admission (d/c'd on 05/04 secondary to weight gain/edema) - outpatient baseline creatinine 1.6-1.9 on chart review Status: Acute (5) Aneurysm, cerebral: Problem details: - incidental 2mm right M1 segment aneurysm noted on CTA in ED; unlikely related to presenting symptoms - outpatient f/u; consider telehealth consultation with [facility]'s Neurointerventional team for management of this aneurysm Status: Acute (6) Low vitamin D level: Problem details: - 2/2 hypercalcemia; holding high dose vitamin-D supplement Status: Acute (7) Low back pain: Problem details: - No acute abnormalities on CT. MRI obtained 05/04: 1. At L4-5, mild to moderate spinal canal narrowing with encroachment upon the descending L5 nerves. Mild to moderate neural foraminal narrowing. 2. At L5-S1, mild to moderate neural foraminal narrowing. 3. Mild to moderate facet arthropathy. Status: Acute (8) Hypertension: Problem details: - holding Lisinopril 2/2 NANDA - given elevated BP, Amlodipine added 05/07 Status: Acute (9) Diabetes mellitus: Problem details: - typically well controlled, since stopping Prednisone BG 110-131 - Accuchecks and SSI Status: Acute (10) Sarcoidosis: Problem details: - current hypercalcemia, otherwise not clear that he is having active sarcoidosis - reassuring CT of chest on admission - Prednisone initiated at 20mg (05/03), stopped on 05/05 given normalization of calcium, reassuring respiratory exam, reassuring CT Status: Acute (11) Acute urinary retention: Problem details: - unclear if this is neurogenic or obstructive in nature - Ellsworth placed 05/02, creatinine improving - no acute abnormalities on L-Spine MRI 05/04 - remove ellsworth 05/07 and initiate Oxybutynin for possible neurogenic bladder with close monitoring Status: Acute Plan - per above - renally dosed Lovenox for ppx - we have attempted daily to transfer the patient to the [facility] (Cristóbal would prefer to not transfer to any other locations) - If [facility] continues limited bed availability, patient will d/c home with early next week with [facility] to discuss expedited outpatient workup with Hematology and Neurology - updated by phone, questions answered Subjective Date Seen: 05/07/23 Interval history: Cristóbal had a headache this morning, resolved with Tylenol. He has no other concerns for the hospitalist team. No new or evolving Neurological concerns. He is hesitant, but amenable, to removing Ellsworth today. Exam Narrative: Exam Narrative: GEN: Alert and oriented, sitting comfortably in bed HEENT: PERRL bilaterally, no scleral icterus CV: RRR, No concerning murmurs, rubs, or gallops R: LCTA bilaterally without concerning wheezing Ext: wwp, no concerning edema Skin: No concerning skin lesions or rashes on exposed skin Neuro: No changes to previous exam, no acute focal findings Psych: Appropriate Const: Vital Signs, click to edit/add: Vital Signs - 24 hr 05/06/23 11:37 05/06/23 15:00 05/06/23 19:00 Temperature 97.6 F 97.5 F L 98.0 F Pulse Rate [Right Pulse Oximeter] 81 88 73 Respiratory Rate 18 16 15 Blood Pressure [Le ft Arm] 136/73 148/84 H 155/103 H Pulse Oximetry 99 97 95 Oxygen Delivery Me thod Room Air Room Air Room Air 05/06/23 23:00 05/06/23 23:00 05/07/23 03:00 Temperature 98.4 F 98.6 F Pulse Rate [Right Pulse Oximeter] 73 92 82 Respiratory Rate 15 18 18 Blood Pressure [Le ft Arm] 166/88 H 147/89 H Pulse Oximetry 95 95 Oxygen Delivery Me thod Room Air Room Air 05/07/23 08:56 Temperature 97.6 F Pulse Rate [Right Pulse Oximeter] 78 Respiratory Rate 18 Blood Pressure [Le ft Arm] 147/85 H Pulse Oximetry 99 Oxygen Delivery Me thod Room Air Labs Labs: Laboratory Results - last 24 hr 05/05/23 05/06/23 05/07/23 13:17 19:19 06:44 WBC 6.46 RBC 4.34 Hgb 12.1 L Hct 36.4 L MCV 84 MCH 28 MCHC 33 RDW Coeff of Raman 13.7 Plt Count 281 Neut % (Auto) 69.5 Lymph % (Auto) 8.5 L [place] % (Auto) 15.2 H Eos % (Auto) 6.3 Baso % (Auto) 0.2 Neut # (Auto) 4.49 Lymph # (Auto) 0.50 L [place] # (Auto) 1.00 H Eos # (Auto) 0.41 Baso # (Auto) 0.01 Abs Immat Gran (auto) 0.02 Imm/Tot Granulo (auto) 0.3 Peripher Smr Path Cons See Scanned Report Sodium 136 Potassium 3.8 3.7 Chloride 102 Carbon Dioxide 30 BUN 34 H Creatinine 2.3 H Estimated Creat Clear 35.27 Estimated GFR 32 Glucose 104 Calcium 10.4 Magnesium 1.5
[2023-05-07 12:15] VITALS: BP 149/81; PULSE 76; RESP 18; TEMP 36.6; O2SAT 99
[2023-05-07] MEDS: AMLODIPINE 5 MG TABLET PO (13:41)
[2023-05-07] MEDS: oxyBUTYnin chloride 5 MG TAB.ER.24 PO (13:41)
--- NOTE | 2023-05-07 14:45 | PC.NURSE ---
shift note: pt up sba/GB. pt pleasant and talkative. Pt ambulated in hussein this a.m x2. Ellsworth dc'd intact @ 1030. No void since ellsworth removed. bladder scanned @ 1410 with 168cc noted in bladder. Pt had lg BM this a.m. Pt had GARCIA early a.m to rt side of head and stated it resolved after tylenol given by NOC nurse. Pt has noted weakness on rt side with ambulation. blood sugars 104,123. IV patent
[2023-05-07 15:51] VITALS: BP 158/92; PULSE 97; RESP 18; TEMP 37.1; O2SAT 97
[2023-05-07] MEDS: lidocaine HCL 2 % JELLY (TOP) STERILE 6 ML UR (18:51)
--- NOTE | 2023-05-07 19:12 | PC.NURSE ---
Pt alert and oriented. Pt was cooperative and talkative. Pt had no complaints of pain during shift (). Pt?s ellsworth was removed and we awaited the first void after removal. Pt bladder scanned at 1830 with 652 found. Pt had tried to void x 2 during shift ()?Communicated with the hospitalist who indicated to reinsert Ellsworth catheter. Once reinserted Pt emptied 1600 cc immediately.? ?
[2023-05-07 20:09] VITALS: BP 147/116; PULSE 100; RESP 18; TEMP 36.6; O2SAT 97
[2023-05-07] MEDS: ENOXAPARIN 30 MG/0.3ML INJ SUBCUT (20:42)
[2023-05-07] MEDS: ATORVASTATIN 10 MG TABLET 20 MG PO (20:42)
[2023-05-07 22:01] VITALS: BP 120/74; PULSE 89; RESP 18; TEMP 37.1; O2SAT 95
[2023-05-08 02:37] VITALS: BP 131/81; PULSE 94; RESP 20; TEMP 36.8; O2SAT 95
--- NOTE | 2023-05-08 04:33 | PC.NURSE ---
[id number]: Patient pleasant and cooperative with cares. Russ patent and draining large amounts of urine. Patient expressed concerns over possible dx of multiple myeloma. Hand Candy Cutter empathized and listened to concerns. Denies pain.
[2023-05-08 07:00] VITALS: BP 142/94; PULSE 94; RESP 18; TEMP 36.5; O2SAT 95
[2023-05-08 07:21] LABS: Basophils Absolute Auto 0.01 K/uL (0.00-0.30); Basophils Percent Auto 0.2 % (0.0-3.0); Eosinophils Percent Auto 6.8 % (0.0-7.0); Hematocrit 36.3 % (37.0-53.0); Hemoglobin* 12.1 gm/dL (13.5-17.5); Immature Granulocytes Abs Auto 0.02 K/uL (0.00-0.30); Immature Granulocytes Pct Auto 0.3 %; Lymphocytes Percent Auto 8.7 % (20-44); Mean Corpuscular HGB Conc 33 gm/dL (32-36); Mean Corpuscular Hemoglobin 28 pg (26-34); Mean Corpuscular Volume 84 fL (80-100); Monocytes Percent Auto 14.3 % (0.0-11.0); Neutrophils Absolute Auto 4.11 K/uL (1.7-7.0); Neutrophils Percent Auto 69.7 % (42.0-72.0); Platelet Count* 280 K/uL (140-440); RDW Coefficient of Variation % 13.7 % (11.5-15.5); Red Blood Count 4.33 m/uL (4.30-5.90); White Blood Count* 5.89 K/uL (4.50-11.00)
[2023-05-08 07:25] LABS: Slide Review Reflex No
[2023-05-08 07:57] LABS: Chloride* 104 mmol/L (96-114); Potassium* 3.3 mmol/L (3.6-5.1); Sodium* 136 mmol/L (135-149)
[2023-05-08 08:00] LABS: Carbon Dioxide* 26 mmol/L (20-32); Creatinine* 2.3 mg/dL (0.5-1.5); Est. Creatinine Clearance* 35.27; Estimated Glomerular Filt Rate 32 ml/min
[2023-05-08 08:01] LABS: Blood Urea Nitrogen* 31 mg/dL (7-30); Calcium* 10.3 mg/dL (8.4-10.6); Glucose* 115 mg/dL (60-115)
[2023-05-08] MEDS: POTASSIUM CHLORIDE 10 MEQ CAPSULE ER 20 MEQ PO (08:59)
[2023-05-08] MEDS: ASPIRIN 81 MG TAB.CHEW PO (09:00)
[2023-05-08] MEDS: EMPAGLIFLOZIN 10 MG TABLET PO (09:00)
[2023-05-08] MEDS: AMLODIPINE 5 MG TABLET PO (09:00)
[2023-05-08] MEDS: oxyBUTYnin chloride 5 MG TAB.ER.24 PO (09:01)
[2023-05-08] MEDS: SODIUM CHLORIDE 0.9 % (FLUSH) 10 ML SYRINGE 5 ML IVF (09:01)
[2023-05-08 11:00] VITALS: BP 121/84; PULSE 94; RESP 18; TEMP 36.8; O2SAT 99
--- NOTE | 2023-05-08 13:35 | PM.DS1 ---
DS: Providers Provider Date Seen: 05/08/23 Date of admission: 05/02/23 20:31 Primary care physician: Ted Hernandez MD Admitting Clinician: Robert Govea MD Consults: 05/02/23 19:07 Consult to Nutrition [CONS] Routine Comment: Reason for consult:: Nutritional Consult Comment: hypercalcemia Consult to Occupational Therapy [CONS] Routine Comment: Reason(s) for OT Consult:: Evaluate and Treat Any Restrictions?:: No Restrictions Consult to Physical Therapy [CONS] Routine Comment: Reason(s) for PT Consult:: Evaluate and Treat Any Restrictions?:: No Restrictions 05/05/23 11:06 Consult to Respiratory Therapy [CONS] Routine Comment: Reason(s) for RT Consult:: Consult Comment: Sarcoidosis (no active flare) Attending Physician on discharge: Kerrie Stratton MD [facility] Date of Discharge: 05/08/23 DS: Diagnosis Discharge Diagnosis (1) Neurological abnormality: Status: Acute Problem details: - Initially had clinical suspicion of a stroke in the L MCA distribution; MRI negative for acute CVA, TTE results below - continue ASA (Plavix d/c'd 05/03) and therapy assessments - also noted to have urinary retention on admission, persistent clumsiness vs weakness of RUE and RLE. No evidence of acute illness or symptom progression - MRI L spine obtained 05/04 without acute abnormalities, T spine revealed abnormalities (see below), C spine normal on 05/05 TTE Final Impressions: 1. Normal left ventricular size, moderately increased wall thickness, normal global systolic function, calculated EF of 62 %. 2. Right ventricular cavity size is normal, global systolic RV function is normal. 3. Borderline increased estimated pulmonary pressures by tricuspid regurgitation velocity and right atrial pressure (33 mmHg plus RAP). Comparison There are no prior studies on this patient for comparison purposes. 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 Impression: 1. Innumerable T1 hypointense, STIR hyperintense marrow lesions throughout the visualized vertebral bodies, nonspecific, but concerning for neoplastic/metastatic process such as multiple myeloma. Clinical and laboratory correlation is advised. 2. Exaggerated thoracic kyphosis, with mild chronic anterior wedge configuration of the mid thoracic vertebrae, and scattered spondylosis changes. 3. Mild-moderate spinal canal narrowing at T10-11 from facet arthropathy/ligamentum flavum laxity. 4. Trace bilateral pleural effusions. Dictated by Clare Hayden MD @ 05/05/2023 1:51:34 PM (3) Acute kidney injury: Status: Acute Problem details: - possibly post obstructive, also has DM2 and essential HTN (could be related to multiple myeloma as well) - holding Lisinopril, IVFs started on admission (d/c'd on 05/04 secondary to weight gain/edema) - outpatient baseline creatinine 1.6-1.9 on chart review (4) Acute urinary retention: Status: Acute Problem details: - unclear if this is neurogenic or obstructive in nature - THIS IS NEW SINCE PRESENTATION ON 05/02 - Ellsworth placed 05/02, creatinine improving - no acute abnormalities on L-Spine MRI 05/04 - remove ellsworth 05/07 - failed - replaced ellsworth 05/07 evening (5) Hypercalcemia: Status: Acute Problem details: - source unclear: NANDA, sarcoid, Multiple Myeloma, etc - holding Vitamin-D supplement, hydrated with IVFs days 1-3 - deferred Zoledronic acid on admission given low creatinine clearance, Calcium then improved to <11 (6) Aneurysm, cerebral: Status: Acute Problem details: - incidental 2mm right M1 segment aneurysm noted on CTA in ED; unlikely related to presenting symptoms - outpatient f/u; consider telehealth consultation with [facility] Neurointerventional team for management of this aneurysm (7) Low vitamin D level: Status: Acute Problem details: - 2/2 hypercalcemia; holding high dose vitamin-D supplement (8) Low back pain: Status: Acute Problem details: - No acute abnormalities on CT. MRI obtained 05/04: 1. At L4-5, mild to moderate spinal canal narrowing with encroachment upon the descending L5 nerves. Mild to moderate neural foraminal narrowing. 2. At L5-S1, mild to moderate neural foraminal narrowing. 3. Mild to moderate facet arthropathy. (9) Hypertension: Status: Acute Problem details: - holding Lisinopril 2/2 NANDA - given elevated BP, Amlodipine added 05/07 (10) Diabetes mellitus: Status: Acute Problem details: - typically well controlled, since stopping Prednisone BG 110-131 - Accuchecks and SSI (11) Sarcoidosis: Status: Acute Problem details: - current hypercalcemia, otherwise not clear that he is having active sarcoidosis - reassuring CT of chest on admission - Prednisone initiated at 20mg (05/03), stopped on 05/05 given normalization of calcium, reassuring respiratory exam, reassuring CT DS: Summary Hospital Course Hospital Course: HOSPITALIST TRANSFER SUMMARY ATTENDING PHYSICIAN: Kerrie Stratton MD REASON FOR TRANSFER Need for neurology and heme/onc consults BRIEF HOSPITAL COURSE: 62-year-old male presents on 04/02 to our emergency room secondary having difficulty with walking. This was acute onset 7 hours earlier. He feels like he is leaning to the right side. His colleagues felt he was having some slurred speech. Typically the patient is very functional. He has a history of diabetes, hypertension, hyperlipidemia and sarcoid. 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 He is on his feet for hours every day. He drives. Initially we thought he had a stroke. His brain imaging was reassuring. We felt his hypercalcemia was related to his sarcoid and NANDA related to his acute urinary retention. He had massive bladder distention upon arrival. His L-spine MRI was reassuring. His neurologic exam was nonfocal and nonspecific. Slowly improved over 6 days. Hypercalcemia resolved with IV fluids. His creatinine also improved with IV fluids. Further imaging later in the hospital stay included a cervical and thoracic MRI. His thoracic MRI shows innumerable hypodense lesions concerning for multiple myeloma. SPEP and urine light chains were still pending at the time of discharge. His peripheral smear showed rouleaux formation without any obvious plasma cell dyscrasia. No bone marrow biopsy was done. There is no availability for neuro or heme Onc evaluations. By day 6 of hospitalization - his neurologic status had improved, his urinary retention continues, his NANDA and hypercalcemia have resolved. The hospital medicine team here in [place] felt tertiary care was needed verses outpatient workup. This was explained to the patient and [facility] agreed to accept tranfer. Ultimately I spoke with Dr. James in Heme/Onc and Dr. Anguiano in Hospital Medicine. SERVICES NOT AVAILABLE HERE THAT THIS PATIENT NEEDS: Neurology, Urology, Hematology/Oncology ACCEPTING PHYSICIAN/SERVICE/LOCATION: As above [facility] MEDICATIONS AT TIME OF TRANSFER: See Mar DRIPS/LINES: Urinary catheter No oxygen, no IV fluids VITAL SIGN, MEDICATION, LAB/MICRO, IMAGING SUMMARY (full details available in account tabs or by records request) REVIEW OF SYSTEMS Unchanged. PHYSICAL EXAM: CONSTITUTIONAL: VITAL SIGNS: see record. Exam unchanged from earlier DISPOSITION: Time spent on discharge >30 minutes. This includes speaking with accepting physician; family/patient and coordinating meds/drips for transfer CT CHEST/ABDOMEN/PELVIS: Multiple small noncalcified 3-5 millimeter nodules scattered throughout both lungs. The appearance is nonspecific, but the findings would be consistent with pulmonary parenchymal involvement by sarcoid. No sign of any hilar adenopathy to correlate with the history of sarcoid. Massive distention of the urinary bladder, reaching the level of the mid kidneys, with several large bladder diverticula. 3 millimeter calculus in the right inferior bladder diverticulum. I suspect that this is a neurogenic bladder since the prostate is only mildly enlarged. Moderate left hydronephrosis and moderate left hydroureter produced by the bladder distension. No sign of right hydronephrosis or hydroureter. CT of the abdomen shows moderate diverticulosis of the left transverse and descending colon with no sign of diverticulitis.. CT of the pelvis shows moderate proximal sigmoid diverticulosis with no sign of diverticulitis. Status at Discharge Functional status at discharge: uses cane/walker Overall status at discharge: patient is progressing back to baseline Time Spent with Patient Time attestation: Total time spent providing and/or coordinating discharge services: Time spent: Greater than 30 minutes Exam Const: Vital Signs, click to edit/add: Vital Signs - 24 hr 05/07/23 15:51 05/07/23 20:09 05/07/23 22:01 Temperature 98.7 F 97.8 F 98.7 F Pulse Rate [Right Pulse Oximeter] 97 100 89 Respiratory Rate 18 18 18 Blood Pressure [Le ft Arm] 158/92 H 147/116 H 120/74 Pulse Oximetry 97 97 95 Oxygen Delivery Me thod Room Air Room Air Room Air 05/08/23 02:37 05/08/23 07:00 05/08/23 07:00 Temperature 98.2 F 97.7 F Pulse Rate [Right Pulse Oximeter] 94 94 94 Respiratory Rate 20 18 18 Blood Pressure [Le ft Arm] 131/81 142/94 H Pulse Oximetry 95 95 Oxygen Delivery Me thod Room Air Room Air 05/08/23 11:00 Temperature 98.3 F Pulse Rate [Right Pulse Oximeter] 94 Respiratory Rate 18 Blood Pressure [Le ft Arm] 121/84 Pulse Oximetry 99 Oxygen Delivery Me thod Room Air DS: Data Data Completed and Pending Labs on day of discharge: Labs from last 24 hours 05/08/23 06:48 WBC 5.89 RBC 4.33 Hgb 12.1 L Hct 36.3 L MCV 84 MCH 28 MCHC 33 RDW Coeff of Raman 13.7 Plt Count 280 Neut % (Auto) 69.7 Lymph % (Auto) 8.7 L [place] % (Auto) 14.3 H Eos % (Auto) 6.8 Baso % (Auto) 0.2 Neut # (Auto) 4.11 Lymph # (Auto) 0.50 L [place] # (Auto) 0.80 Eos # (Auto) 0.40 Baso # (Auto) 0.01 Abs Immat Gran (auto) 0.02 Imm/Tot Granulo (auto) 0.3 Sodium 136 Potassium 3.3 L Chloride 104 Carbon Dioxide 26 BUN 31 H Creatinine 2.3 H Estimated Creat Clear 35.27 Estimated GFR 32 Glucose 115 Calcium 10.3 Discharge Plan Discharge Disposition: [facility] Date of Admission: 05/02/23 20:31 Attending Provider on Discharge: Kerrie Stratton Primary Care Provider: Ted Hernandez Oxygen: No Urinary Catheter: Yes Services not available here: Neurology, Heme/Onc
[2023-05-08 15:00] VITALS: BP 133/78; PULSE 88; RESP 20; TEMP 36.7
[2023-05-08 16:43] VITALS: BP 133/78; PULSE 88; RESP 20; TEMP 36.7
--- NOTE | 2023-05-08 16:45 | PC.NURSE ---
Nursing Care Hours: 5587-1331 Pt this shift cooperative, alert and oriented. Talkative, speech slightly slurred, difficulty finding words. VSS. IV patent. ellsworth patent, pale yellow clear u/o. BM today per pt report. Shower done with SB assist. Walking SB assist with gaitbelt. Pt anxious about pending labs and unknown diagnosis. Anxiety increased 6/10 per pt when told about discharge to [facility]. Pt understanding and agreeable. Visible tremors noted later afternoon. Nurse to Nurse over the phone given. IV in R AC left in place, patent. Personal belongings form signed. 1+pitting edema bilat legs, TEDS on later afternoon.
[2023-05-09 18:13] LABS: Albumin 3.37 g/dL (3.75-5.01); Alpha 1 Globulin 0.35 g/dL (0.19-0.46); Alpha 2 Globulin 0.91 g/dL (0.48-1.05); Total Protein, Serum 6.2 g/dL (6.3-8.2)
== END 2023-05-08 15:55 | disposition short-term general hospital (02) | DRG 841 ==
LOC: ED 17:33 → MEDSURG 19:52
PROVIDERS: Family Medicine; Admitting Provider Family Medicine; Emergency Provider Family Medicine; PCP Internal Medicine; Visit Provider Family Medicine
DX: C90.00 Multiple myeloma not having achieved remission (principal); G81.91 Hemiplegia, unspecified affecting right dominant side; N17.9 Acute kidney failure, unspecified; N13.30 Unspecified hydronephrosis; R29.818 Other symptoms and signs involving the nervous system; R53.1 Weakness; R47.81 Slurred speech; R26.2 Difficulty in walking, not elsewhere classified; E83.52 Hypercalcemia; I67.1 Cerebral aneurysm, nonruptured; I12.9 Hypertensive chronic kidney disease with stage 1 through stage 4 chronic kidney disease, or unspecified chronic kidney disease; N18.9 Chronic kidney disease, unspecified; N32.89 Other specified disorders of bladder; N32.3 Diverticulum of bladder; N21.0 Calculus in bladder; R33.9 Retention of urine, unspecified; M48.02 Spinal stenosis, cervical region; I44.0 Atrioventricular block, first degree; M47.812 Spondylosis without myelopathy or radiculopathy, cervical region; E78.5 Hyperlipidemia, unspecified; Z87.891 Personal history of nicotine dependence; M51.37 Other intervertebral disc degeneration, lumbosacral region; M48.07 Spinal stenosis, lumbosacral region; D86.0 Sarcoidosis of lung; N31.9 Neuromuscular dysfunction of bladder, unspecified; E11.9 Type 2 diabetes mellitus without complications
CPT/HCPCS: 36415; 51701; 51798; 70450; 70496; 70498; 70551; 71250; 72131; 72141; 72146; 72148; 74176; 80048; 80053; 80076; 80143; 80179; 80306; 81001; 82077; 82310; 82962; 83520; 83605; 83735; 83970; 84100; 84132; 84156; 84165; 84443; 84484; 84550; 85025; 85610; 85651; 86140; 86335; 86617; 87086; 93005; 93306; 94761; 97110; 97112; 97116; 97162; 97166; 97530; 97535; 99285; A9270; J1650; J1940; J7030; J7512; Q9967

== ENCOUNTER 2023-05-08 15:40 | Outpatient (CLI) | payer OTHER, SELFPAY | END 2023-05-08 15:41 | disposition home or self-care (01) | LOC: AMB 05-09 14:38 | PROVIDERS: PCP Internal Medicine; Visit Provider Emergency Medicine | DX: R29.818 Other symptoms and signs involving the nervous system (principal); I67.1 Cerebral aneurysm, nonruptured | CPT/HCPCS: A0425; A0428 ==

== ENCOUNTER 2024-11-07 14:56 | Outpatient (CLI) | payer OTHER, SELFPAY ==
--- NOTE | 2024-11-07 15:30 | CRLHL7_ITS ---
For Patients: As a result of the Century Cures Act, medical imaging exams and procedure reports are released immediately into your electronic medical record. You may view this report before your referring provider. If you have questions, please contact your health care provider. XR DXA Bone Mineral Density (BMD) Reason for exam: Sarcoidosis. Stage 3 CKD. Current height (in): 70. Weight (lb): 210. Menopause age: N/A. Ethnicity: White. 1. Have you had a previous hip or vertebral fracture? No. 2. Have you had any fractures during your adult life which did not result from significant trauma (e.g., auto accident)? No. 3. Did either of your parents have a hip fracture? No. 4. Do you smoke? No. 5. Have you ever taken Glucocorticoids? No. 6. Do you have rheumatoid arthritis? No. 7. Do you have secondary osteoporosis? No. 8. Do you drink 3 or more alcoholic drinks per day? No. 9. Are you being treated for osteoporosis? No. 10. Have you ever taken any of the following medications: Actonel, Evista, Fosamax, Miacalcin, Reclast, Boniva, Forteo, HRT (i.e., estrogen/hormone therapy), Protelos, Prolia, Vitamin D, Calcium, other ??? please specify. ANSWER: Yes, calcium. 11. Do you have any of the following medical conditions: Anorexia or bulimia, asthma or emphysema, end stage renal disease, hyperparathyroidism, any seizure disorders, cancer, inflammatory bowel diseases, hysterectomy, other ??? please specify. ANSWER: No. 12. What was your maximum height (inches)? 70. 13. Do you perform weight bearing exercise regularly? No. 14. Do you regularly consume dairy products? Yes. 15. Do you drink caffeinated beverages? Yes. TECHNIQUE: Bone mineral density study was performed using the [employer]. FINDINGS: The results of the study expressed as bone mineral density (BMD) are as follows: Lumbar spine L1 to L4: BMD: 1.121 g/cm2. T-score: 0.3. Z-score: 0.9 Neck Left: BMD: 0.873 g/cm2. T-score: -0.4. Z-score: 0.6 Right: BMD: 0.881 g/cm2. T-score: -0.4. Z-score: 0.6 Total Left: BMD: 1.063 g/cm2. T-score: 0.2. Z-score: 0.7 Right: BMD: 1.057 g/cm2. T-score: 0.2. Z-score: 0.6 IMPRESSION: Normal bone density. *Comparison exams done prior to 03/2020 were performed on different unit, [employer]. Peewee Tapia M.D. Diagnostic Radiologist [email or web address] SHERRILL/carin del rosario/Dictated by: Peewee Tapia MD @ 11/08/2024 10:24:00 AM (Electronically Signed)
== END 2024-11-07 14:57 | disposition home or self-care (01) ==
PROVIDERS: PCP Family Medicine; Visit Provider Chiropractor
DX: D86.9 Sarcoidosis, unspecified (principal); N18.30 Chronic kidney disease, stage 3 unspecified
CPT/HCPCS: 77080

== ENCOUNTER 2025-08-29 23:33 | Emergency (ER) | payer OTHER, SELFPAY ==
--- OUTSIDE RECORDS SUMMARY | 2025-04-03 10:23 | XMS_ITS | Continuity of Care Document ---
Author Organization [facility] Address [address] [address] [place] [address] Phone Care Team Providers Care Welfare Case Worker Name Role Phone Latanya Cabral MD Unavaila ble Medications Medication Instructions Dosage Effective Dates (start - stop) Status Comments ciprofloxacin 500 mg tablet take 1 tablet by oral route every 12 hours 500 MG - Active Procedures Procedure Date Ugi Endo; W/us Guid Asp/bx Advance Directives Directive Yes / No Effective Date File Name No Information Encounters Encounter Description Practice Location Reason(s) For Visit Diagnoses Date Provider Providers Copied on Encounter [facility], [address] [address], [place], [place], [id number], tel:[phone] [facility] No Information Misha Orellana [address] [place] [address], [place], [place], [id number], [place]. tel:[phone] [facility], [address] [address], [place], [place], [address], [place] tel:[phone] [facility] Pancreas cyst Misha Orellana [address] [place] [address], [place], [place], [address], [place]. tel:[phone] [facility], [address] [address], [place], [place], [id number], [place] tel:[phone] [facility] No Information Misha Jacobson. [address], [place], [place], [address], [place]. tel:[phone] Referring Provider: Matt Jacobson, [address], [place], [address]. tel:[phone] [facility], [address] [address], [place], [place], [address], [place] tel:[phone] [facility] No Information Rustam Lubin. [address], [address], [place], [id number], [place]. tel:[phone] Family History Family Member Type Diagnosis Age At Onset No Information Immunizations Vaccine Date Status Comments SARS-COV-2 (COVID-19) vaccin e, mRNA, spike protein, LNP, preservative free, 50 mcg/0.5 mL dose administered Note: [facility] bi-direct ional interface ; Source: Other Registry Pneumococcal conjugate vacci ne 20-valent (PCV20), polysaccharide [id number] conjugate, adjuvant, preservative free administered Note: [facility] bi-direct ional interface ; Source: Other Registry Respiratory syncytial virus (RSV), vaccine, bivalent, protein subunit RSV prefusion F, diluent reconstituted, 0.5 mL, preservative free administered Note: [facility] bi-direct ional interface ; Source: Other Registry SARS-COV-2 (COVID-19) vaccin e, mRNA, spike protein, LNP, preservative free, 50 mcg/0.5 mL dose administered Note: [facility] bi-direct ional interface ; Source: Other Registry Afluria Qd administered Note: M [facility] bi-directional interface ; Source: Other Registry Afluria Qd administered Note: M [facility] bi-directional interface ; Source: Other Registry SARS-COV-2 (COVID-19) vaccin e, mRNA, spike protein, LNP, bivalent, preservative free, 30 mcg/0.3 mL dose, see-sucrose formulation administered Note: [facility] bi-direct ional interface ; Source: Other Registry SARS-COV-2 (COVID-19) vaccin e, mRNA, spike protein, LNP, preservative free, 30 mcg/0.3mL dose, see-sucrose formulation administered Note: MII C bi- directional interface ; Source: Other Registry SARS-COV-2 (COVID-19) vaccin e, mRNA, spike protein, LNP, preservative free, 30 mcg/0.3mL dose administered Note: [facility] bi-direct ional interface ; Source: Other Registry Afluria Qd administered Note: M [facility] bi-directional interface ; Source: Other Registry SARS-COV-2 (COVID-19) vaccin e, mRNA, spike protein, LNP, preservative free, 100 mcg/0.5mL dose or 50 mcg/0.25mL dose administered Note: [facility] bi -directional interface ; Source: Other Registry SARS-COV-2 (COVID-19) vaccin e, mRNA, spike protein, LNP, preservative free, 100 mcg/0.5mL dose or 50 mcg/0.25mL dose administered Note: [facility] bi -directional interface ; Source: Other Registry tetanus toxoid, reduced diphtheria toxoid, and acellular pertussis vaccine, adsorbed administered Note: [facility] b i-directional interface ; Source: Other Registry Afluria Qd administered Note: M [facility] bi-directional interface ; Source: Other Registry Afluria Qd administered Note: M [facility] bi-directional interface ; Source: Other Registry zoster vaccine recombinant administered N ote: [facility] bi-directional interface ; Source: Other Registry zoster vaccine recombinant administered N ote: [facility] bi-directional interface ; Source: Other Registry Afluria Qd administered Note: M [facility] bi-directional interface ; Source: Other Registry Afluria Qd administered Note: M [facility] bi-directional interface ; Source: Other Registry Afluria Qd administered Note: M [facility] bi-directional interface ; Source: Other Registry Afluria Qd administered Note: M [facility] bi-directional interface ; Source: Other Registry Afluria Qd administered Note: M IIC bi-directional interface ; Source: Other Registry Twinrix administered Note: [facility] bi-d irectional interface ; Source: Other Registry Twinrix administered Note: [facility] bi-d irectional interface ; Source: Other Registry Twinrix administered Note: [facility] bi-d irectional interface ; Source: Other Registry Influenza, split virus, trivalent, injectable, contains preservative administered Note: [facility] bi-direct ional interface ; Source: Other Registry Influenza, split virus, trivalent, injectable, preservative free administered Note: [facility] bi-direct ional interface ; Source: Other Registry Influenza, split virus, trivalent, injectable, contains preservative administered Note: [facility] bi-direct ional interface ; Source: Other Registry tetanus toxoid, reduced diphtheria toxoid, and acellular pertussis vaccine, adsorbed administered Note: [facility] b i-directional interface ; Source: Other Registry Novel [id number], all formulations administered Note: [facility] bi-direct ional interface ; Source: Other Registry Pneumovax 23 administered Note: [facility] bi-d irectional interface ; Source: Other Registry Payers Payer name Insurance type Covered libertarian ID Authoriza tion(s) No Information Social History Type Description Quantity Date Captured Comments Alcohol Use Details Unknown Caffeine Use Details Unknown Tobacco Use Status No Information Smoking Status No Information Sex Male Chief Complaint And Reason For Visit No Information Reason For Referral Reason For Referral No Information Plan Of Treatment Date Type Action Status Referral Ordered: MRCP Biliary/Pancreatic Ducts WITHOUT And WITH Contrast Appointment date/timeframe: 09/28/2025 ordered History Of Present Illness Encounter Date Complaint History Of Prese nt Illness No Information Functional Status Date Functional Assessmen t No Information Instructions Date Instruction Additional Infor mation No Information Assessments Type Assessment Date No Information Patient Care Teams Name Effective Dates (start - stop) Status Members No Information
--- OUTSIDE RECORDS SUMMARY | 2025-04-03 10:23 | XMS_ITS | Continuity of Care Document ---
Author Organization [facility] Address [address] [address] [place] [address] Phone Care Team Providers Care Patient Insurance Clerk Name Role Phone Latanya Cabral MD Unavaila [...] Diagnoses Date Provider Providers Copied on Encounter [facility], [address] [address], [place], [place], [id number], tel:[phone] [facility] No Information Misha Orellana [address] [place] [address], [place], [place], [id number], [place]. tel:[phone] [facility], [address] [address], [place], [place], [address], [place] tel:[phone] [facility] Pancreas cyst Misha Orellana [address] [place] [address], [place], [place], [id number], [place]. tel:[phone] [facility], [address] [address], [place], [place], [address], [place] tel:[phone] [facility] No Information Misha Jacobson. [address] [facility], [place], [place], [address], [place]. tel:[phone] Referring Provider: Matt Jacobson, [address], [place], [address]. tel:[phone] [facility], [address] [address], [place], [place], [address], [place] tel:[phone] [facility] No Information Rustam Lubin. [address], [place], [id number], [place]. tel:[phone] Family History Family Member Type Diagnosis Age At Onset No Information Immunizations Vaccine Date Status Comments SARS-COV-2 (COVID-19) vaccin e, mRNA, spike protein, LNP, preservative free, 50 mcg/0.5 mL dose administered Note: [facility] bi-direct ional interface ; Source: Other Registry Pneumococcal conjugate vacci ne 20-valent (PCV20), polysaccharide [id number] conjugate, adjuvant, preservative free administered Note: [facility] [...] i-directional interface ; Source: Other Registry Novel [id number], all formulations administered Note: [facility] bi-direct ional [...]
--- OUTSIDE RECORDS SUMMARY | 2025-08-29 23:35 | XMS_ITS | Clinical Summary ---
Author Organization [facility] Address [address] [place] [address] Phone Care Team Providers Care Financial Planning Advisor Name Role Phone Joan Monk MD Primary Care Provider [phone] Allergies No known active allergies Medications glipiZIDE (GLUCOTROL XL) 2.5 MG 24 hr tablet Take 2.5 mg by mouth 1 (one) time each day Do not crush, chew, or split. Active tamsulosin (FLOMAX) 0.4 MG 24 hr capsule Take 0.4 mg by mouth 1 (one) time each day 3 Active Empagliflozin 25 MG tablet Take 25 mg by mouth 1 (one) time each day 3 Active Trulicity 3 MG/0.5ML solution pen-injector INJECT 3MG SUBCUTANEOUSLY ONCE WEEKLY 3 Active atorvastatin (LIPITOR) 10 MG tablet Take 1 tablet every day by oral route. 3 Active aspirin 81 MG chewable tablet Chew 1 tablet every day by oral route. Active amLODIPine (NORVASC) 5 MG tablet TAKE 1 TABLET (5 MG) BY MOUTH ONCE DAILY. 3 Active [place]-3 Fatty Acids (Fish Oil) 1000 MG capsule delayed-releas e Take 1 capsule by mouth in the morning and 1 capsule in the evening. Active azaTHIOprine (Imuran) 50 MG tablet Take 3 tablets (150 mg total) by mouth 1 (one) time each day Increased dose 90 tablet 11 5 026 Active Active Problems Problem Noted Date Diagnosed Date Benign hypertensive chronic kidney disease 11/25 Sarcoidosis of other site 09/02/2023 Stage 3b chronic kidney disease 09/02/2023 Chronic retention of urine 09/02/2023 Type 2 diabetes mellitus wit h diabetic chronic kidney disease 09/02/2023 Family History Medical History Relation Comments No Known Problems Brother Hypertension Father Stroke Father Hypertension Mother No Known Problems Mother's Sister No Known Problems Sister Relation Status Comments Brother Alive Father Maternal Grandfather Maternal Grandmother Mother Mother's Sister Alive Paternal Grandfather Paternal Grandmother Sister Alive Social History Tobacco Use Types Packs/Day Years Used Date Smoking Tobacco: Former Cigarettes Smokeless Tobacco: Never Tobacco Cessation:Counseling Given: Not Answered Alcohol Use Standard Drinks/Week Comments Not Currently 0 (1 standard drink = 0.6 oz pur e alcohol) Sex and Gender Information Value Date Recorded Sex Assigned at Not on file Legal Sex Male 3:20 PM EDT Gender Identity Not on file Sexual Orientation Not on file Last Filed Vital Signs Vital Sign Reading Time Taken Comments Blood Pressure 122/78 01/04/2025 11:09 AM CDT Pulse 94 01/04/2025 11:09 AM CDT Temperature - - Respiratory Rate - - Oxygen Saturation - - Inhaled Oxygen Concentration - - Weight 99.3 kg (219 lb) 01/04/2025 11:09 AM CDT Height 177.8 cm (5' 10) 01/04/2025 11:09 AM CDT Body Mass Index 31.42 01/04/2025 11:09 AM CDT Plan of Treatment Health Maintenance Due Date Last Done Comments Colorectal Cancer Screening: Annual FOBT 2011 Colorectal Cancer Screening: Colonoscopy 2011 Colorectal Cancer Screening: Sigmoidoscopy 2011 Diabetes: Ophthalmology Exam 06/06/2023 Diabetes: Pedal Pulse Checked 06/06/2023 Diabetes: Sensory Foot Exam 06/06/2023 Diabetes: Visual Foot Exam 06/06/2023 Diabetes: Hemoglobin A1C 05/07/2025 025, 11/16/2024, 2023, Additional history exists Influenza Vaccine (#1) 2025 , 08/17/2024, 08/16/2023, Additional history exists Pneumococcal Vaccine: 50+ Ye ars (3 of 3 - PCV) 08/07/2025 08/07/2024, 10/24/2012, 09/13/2008 Hepatitis B Vaccine Completed 08/01/2014, 02/20/2014, 12/25/2013 Pneumococcal Vaccine: Peds ( 0 to 5 Years) and At-Risk Patients (6 to 49 Years) Discontinued 08/07/2024, 10/24/2012, 09/13/2008 Insurance [facility] Dual Elig MCR/ARI [facility] Medicaid Care Teams Financial Planning Advisor Relationship Specialty Start Date End Date Joan Monk MD [address] [place] [address] PCP - General Family Medicine 06/02/23
--- OUTSIDE RECORDS SUMMARY | 2025-08-29 23:35 | XMS_ITS | Clinical Summary ---
Author Organization [facility] Address [address] [place] [id number] Care Team Providers Care Title Supervisor Name Role Phone Joan Monk MD Primary Care Prov ider [facility] [place] Unavailable Allergies No known active allergies Medications blood-glucose meterIndications:T ype II or unspecified type diabetes mellitus without mention of complication, not stated as uncontrolled (HC) Dispense glucose meter, test strips and lancets covered by the patient insurance. Test 2 times per day. 1 Device 0 12/26/19 14 Active aspirin (ECOTRIN) 81 mg enteric coated tablet Take 1 tablet by mouth once daily. 0 01/27/20 16 Active fish oil-omega-3 fatty acids (FISH OIL) 1,000-340 mg capsuleIndications :Encounter for herb and vitamin supplement management Take 1 capsule by mouth 2 times daily. 180 capsule 3 02/15/20 19 Active Diabetic ShoeIndications:Ty pe 2 diabetes mellitus without complication, without long-term current use of insulin (HC) As directed. Diabetic shoes. Callas on feet 2 Each 08/03/20 22 Active ergocalciferol (VITAMIN D2; DRISDOL) 50,000 unit capsule Take 50,000 units by mouth once a month. Active trimethoprim (PRIMSOL ORAL) Activ e cholecalciferol (VITAMIN D3) 50,000 unit capsuleIndications :Vitamin D deficiency Take 1 Capsule (50,000 units) by mouth every 4 weeks. HOLD until patient calls 3 Capsule 06/20/20 24 Active pen needle (bd insulin pen needle uf mini) 31 gauge x 3/16 (disposable insulin pen needle)Indications :Type 2 diabetes mellitus without complication, without long-term current use of insulin (HC) Use with Victoza pen. Remove the 2 covers on the insulin pen needle before administering insulin dose. [id number]. Wait to fill until patient calls 100 Each 4 10/02/20 24 Active diabetic supplies, miscellan.Indicati ons:Type 2 diabetes mellitus without complication, without long-term current use of insulin (HC) Dispense glucose meter, test strips and lancets covered by patient insurance. Test 2 times per day. HOLD until patient calls 1 Kit 10/02/20 24 Active azaTHIOprine (IMURAN) 50 mg tablet TAKE 1 TABLET (50 MG TOTAL) BY MOUTH 1 (ONE) TIME EACH DAY FOR SARCOID 10/05/20 24 Active dulaglutide (TRULICITY) 3 mg/0.5 mL subcutaneous penIndications:Typ e 2 diabetes mellitus without complication, without long-term current use of insulin (HC) Inject 3 mg subcutaneous once weekly. Update to pharmacy sent to PA pool to complete PA 6 mL 3 12/20/19 25 Active CPAPIndications:OS A (obstructive sleep apnea) RESMED CPAP (E0601) machine for home use at pressure: 7-20cmw, Choice of mask (A7030 or A7034) w/full face cushion (A7031) x1/mo, nasal cushion (A7032) x2/mo, or nasal pillows (A7033) x 2/mo; Length of Need: 99 months; Frequency of use: Daily 1 Each 11 01/24/20 25 Active amLODIPine 5 mg tabletIndications: Essential hypertension Take 1 Tablet (5 mg) by mouth once daily. 90 Tablet 3 01/30/20 25 Active atorvastatin 10 mg tabletIndications: Mixed hyperlipidemia Take 1 Tablet (10 mg) by mouth at bedtime. Replaces Zocor due to recall 90 Tablet 3 01/30/20 25 Active blood sugar diagnostic (Blood Glucose Test) stripIndications:T ype 2 diabetes mellitus without complication, without long-term current use of insulin (HC) Dispense test strips covered by the patient insurance. Prodigy Test 4 times per day. Reason for increased testing on prednisone and having elevated blood sugar and needs to monitor more frequently. 360 Each 3 01/30/20 Active empagliflozin 25 mg tabletIndications: Type 2 diabetes mellitus without complication, without long-term current use of insulin (HC) Take 1 Tablet (25 mg) by mouth once daily. Dose increase as of 07/19/2023. eGFR 45. 90 Tablet 3 01/30/20 Active lancetsIndications :Type 2 diabetes mellitus without complication, without long-term current use of insulin (HC) As directed. Test 4 times per day due to prednisone use and elevated A1C. 360 Each 3 01/30/20 Active semaglutide (Ozempic) 2 mg/3 mL subcutaneous penIndications:Typ e 2 diabetes mellitus without complication, without long-term current use of insulin (HC) Inject 0.25 mg subcutaneous once weekly. For 4 weeks then increase to 0.5 mg subcutaneous if blood sugar still elevated. 6 mL 3 02/05/20 Active predniSONE 1 mg tablet Take 1 Tablet (1 mg) by mouth once daily with a meal. Weaning down. Last dose 02/09/25 02/06/20 Active glipiZIDE 5 mg tabletIndications: Type 2 diabetes mellitus without complication, without long-term current use of insulin (HC) Take 1 Tablet (5 mg) by mouth once daily before a meal. Replaces extended release Glipizide not covered. 90 Tablet 1 02/20/20 Active Active Problems Problem Noted Date Diagnosed Date Stage 3b chronic kidney disease 10/02/2024 Hypercalcemia due to chronic kidney disease 09/23 Sarcoidosis of other sites 10/02/2024 Chronic retention of urine 10/02/2024 LOC (loss of consciousness) 01/31/2024 Sarcoidosis, lung 11/29/2023 Abnormal MRI 06/03/2023 Diabetes mellitus 06/03/2023 Overview (06/03/2023): Feb 12, 2015 Entered By: AMADO العراقي Comment: Diagnosed in 2011 Inguinal hernia 06/03/2023 Overview (06/03/2023): Feb 12, 2015 Entered By: AMADO العراقي Comment: reparied in Kidney disease 06/03/2023 Low back pain 06/03/2023 Low vitamin D level 06/03/2023 Neurological abnormality 06/03/2023 UTI (urinary tract infection) 05/09/2023 Thyroid nodule 05/09/2023 Acute urinary retention 05/08/2023 Acute kidney injury 05/08/2023 Aneurysm, cerebral 05/08/2023 Overview (12/04/2024): Aneurysm, cerebral CTA 05/03/23 showed incidental 2 mm right M1 segment aneurysm last admission and evaluated by neurosurgery Aneurysm, cerebral CTA 05/03/23 showed incidental 2 mm right M1 segment aneurysm last admission and evaluated by neurosurgery Glaucoma 05/08/2023 Overview (05/08/2023): Feb 12, 2015 Entered By: AMADO العراقي Comment: Just diagnosed by optho in 2014 -> recheck 02/2015 Hypercalcemia 05/08/2023 Abnormal MRI, thoracic spine 05/08/2023 Retinopathy, background, diabetic 03/16/2022 Overview (03/16/2022): See eye exam 02/2022 Sarcoidosis of lymph nodes 01/01/2022 Stage 3a chronic kidney disease 01/01/2022 Vitamin D deficiency 12/27/2013 Type 2 diabetes mellitus with ophthalmic complic ation 01/05/2008 Essential hypertension 12/29/2007 Mixed hyperlipidemia 12/29/2007 Encounters Date Type Department Care Team Description 06/27/2025 Telephone [facility] [address] [place] [address] Joan Monk MD Error-please disregard from Last 3 Months Immunizations Immunization Administration Dates Next Due COVID-19 VACCINE SPIKEVAX (M ODERNA 50MCG/0.5ML) 12YO+ PFS 08/21/2024,08/16/2023 COVID-19 vaccine (Moderna 100mcg/0.5mL) PF, MDV 01/14/2021,12/17/2020 COVID-19 vaccine (Pfizer-Bio NTech 30mcg/0.3mL) 12YO+ BIVALENT PF, MDV 07/13/2022 COVID-19 vaccine (AMKAI-Bio NTech 30mcg/0.3mL) 12YO+ GREGORY-SUCROSE PF, MDV 03/15/2022 COVID-19 vaccine (AMKAI-Bio NTech 30mcg/0.3mL) PF, MDV 09/03/2021 HepA-HepB (Twinrix) 08/01/2014,02/20/2014,2013 INFLUENZA, IIV3 PF (AGE >= 6 MO) 08/21/2024 Influenza Virus, Unspecified 06/24/2022,06/24/20 18,07/18/2009 Influenza, IIV3 (Age >=3 years) 07/19/2011,07/28 Influenza, IIV4 08/16/2023,,07/20/2021,07/22,08/07/2019,07/20/2018,07/26/2017 ,07/27/2016,07/24/2015,08/01/2014 Pneumococcal Conj 20-valent (Prevnar 20) 08/07/2024 Pneumococcal Poly,23-Valent (Pneumovax) 10/24/2012,09/13/2008 RSV, Bivalent Vaccine Recons tituted (Abrysvo 120MCG/0.5mL) 09/07/2023 Tdap 07/22/2020,02/11/2010,10/24/2009 Zoster (Shingrix-RZV, recombinant) 03/24/2019, Family History Medical History Relation Name Comments Good Health Brother 1 Good Health Brother 2 Good Health Brother 3 Good Health Daughter Hypertension Father Diabetes Maternal Grandfather Cancer Mother bone Hypertension Mother Good Health Sister Good Health Son Relation Name Status Comments Brother 1 Brother 2 Brother 3 Daughter Father Maternal Grandfather Mother Sister Son Social History Tobacco Use Types Packs/Day Years Used Date Smoking Tobacco: Former Cigarettes Q uit: 10/24/1986 Smokeless Tobacco: Never Tobacco Cessation:Counseling Given: Yes Alcohol Use Standard Drinks/Week Comments Yes 0 (1 standard drink = 0.6 oz pur e alcohol) occasional PHQ-2 Answer Date Recorded PHQ-2 TOTAL SCORE 0 06/20/2024 Social Connections Answer Date Recorded Do you often feel lonely or isolated from those around you? 0 06/20/2024 Financial Resource Strain Answer Date R ecorded Difficulty of Paying Living Expenses 3 06/20/2024 Difficulty of Paying Living Expenses Not on file 06/20/2024 Food Insecurity Answer Date Recorded Do you worry your food will run out before you are able to buy more? 1 06/20/2024 Transportation Needs Answer Date Record ed Does lack of transportation keep you from medica l appointments? 1 06/20/2024 Does lack of transportation keep you from work, meetings or getting things that you need? 1 06/20/2024 Housing Stability Answer Date Recorded What is your housing situation today? 1 06/20/2024 Utilities Answer Date Recorded Do you have trouble paying f or utilities (for example, heat, electricity, water, phone)? 1 06/20/2024 Sex and Gender Information Value Date Recorded Sex Assigned at Not on file Legal Sex Male 5:24 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 Gender Identity Not on file Sexual Orientation Not on file Obstetrics History Last Filed Vital Signs Vital Sign Reading Time Taken Comments Blood Pressure 121/80 02/05/2025 7:22 AM CDT Pulse 93 02/05/2025 7:22 AM CDT Temperature 37.1 C (98.7 F) 06/05/2023 12:59 PM CDT Respiratory Rate 18 06/05/2023 12:5 9 PM CDT Oxygen Saturation 100% 02/05/2025 7:22 AM CDT Inhaled Oxygen Concentration - - Weight 97.9 kg (215 lb 12.8 oz) 02/05/2025 7:22 AM CDT Height 177.8 cm (5' 10) 10/02/2024 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 Body Mass Index 30.96 10/02/2024 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 Plan of Treatment Health Maintenance Due Date Last Done Comments Colonoscopy through age 75 12/15/2017 12/15/2012 Depression screening for age 12+ 06/20/2025 06/20/2024, 07/13/2022, 01/19/2021, Additional history exists Influenza Vaccine (#1) 2025 , 08/16/2023, 07/13/2022, Additional history exists BMI (ht and wt on same day) for age 18+ 10/02/2025 10/02/2024, 09/10/2024, 06/19/2024, Additional history exists Lipids for age 45-75 05/24/2028 05/24/2023, 07/20/2021, 07/22/2020, Additional history exists Tetanus booster 07/22/2030 07/22/2020, 04/2 10/2009, 10/24/2009 Hepatitis B series for 19+ Completed 08/01, 02/20/2014, 12/25/2013 Hepatitis C screening for ag e 18-79 Completed 10/24/2014 (Completed outsid e of [facility]) Zoster (shingles) series for age 50+ Completed 03/24/2019, 01/22/2019 HIV for age 15-65 Completed 05/27/2023, (Completed outside of [facility]) RSV vaccine for adults or Completed 09/07/2023 Pneumococcal series for age 50+ Completed 08/07/2024, 10/24/2012, 09/13/2008 Goals Goal Patient Goal Type Associated Problems Recent Progress Patient-Stated? Author BLOOD PRESSURE - Maintains BP less than 130/80 Blood Pressure Essential hypertension Joan Zheng MD Procedures Procedure Name Priority Date/Time Associated Diagnosis Comments RAPID HIV SCREEN Timed 05/27/2023 7:12 AM CDT LIPID PANEL W REFLEX MEASURED LDL Routine 05/24/2023 12:30 PM CDT Type 2 diabetes mellitus without complication, without long-term current use of insulin (HC) from Last 3 Months or Most Recently Relevant to Health Maintenance Results * RAPID HIV SCREEN (05/27/2023 7:12 AM CDT) RAPID HIV SCREEN Non-React karly Non-Reactiv e, Invalid 05/27/2023 8:04 AM CDT [facility] Comment:A NONREACTIVE test r esult means that HIV-1 or HIV-2 antibodies and HIV-1 p24 antigen were not detected in the specimen. Blood BLOOD SPECIMEN / Unknown Venipuncture / Unknown 05/27/2023 7:12 AM CDT 05/27/2023 7:26 AM CDT us Demarcus Curiel MD CHEMISTRY Final Result [facility] [employer]END[employer] INTERNAL ZIP [id number] [place] [address] * LIPID PANEL W REFLEX MEASURED LDL (05/24/2023 12:30 PM CDT) CHOLESTEROL,TOTAL 123 100 - 199 mg/dL 05/25/2023 1:33 AM CDT [facility] Comment: Cholesterol, Total Reference Ranges Desirable <200 mg/dL Borderline 200-239 mg/dL High >=240 mg/dL TRIGLYCERIDES 112 <150 mg/dL 05/25/2023 1:33 AM CDT [facility] HDL CHOLESTEROL 50 >40 mg/dL 1:33 AM CDT [facility] NON-HDL CHOLESTEROL 73 <145 mg/dl 05/25/2023 1:33 AM CDT [facility] CHOL/HDL RATIO 2.46 <4.50 05/25/2023 1:33 AM CDT [facility] LDL CHOLESTEROL 51 <=130 mg/dL 05/25/2023 1:33 AM CDT [facility] VLDL CHOLESTEROL 22 <=30 mg/dL 05/25/2023 1:33 AM CDT [facility] PROVIDER ORDERED STATUS RANDOM 05/25/2023 1:33 AM CDT [facility] Blood BLOOD SPECIMEN / Unknown Venipuncture / Unknown 05/24/2023 12:30 PM CDT 05/24/2023 12:31 PM CDT us Joan Monk MD CHEMISTRY Fi nal Result [facility] 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 Expl anation Power of Enginehouse Brakeman 08/25/2016 12:06 PM DURA BLE POWER OF AGENT BASED MODELER FOR HEALTH CARE AND LIVING WILL, MALGORZATA SAMUEL, 03/05/2015 * Full Code (Latest Code Status on File) Date Activated Date Inactivated Comments 05/26/2023 12:14 AM 06/03/2023 8:12 PM Question Answer Comments Code Status Discussion: Unable to Assess Preferences, Provider to review later * Full Code Date Activated Date Inactivated Comments 05/08/2023 5:06 PM 05/12/2023 8:08 PM Question Answer Comments Code Status Discussion: Reviewed Preferences Care Teams Title Supervisor Relationship Specialty Start Date End Date Joan Monk MD [address] [place] [address] PCP - General Family Practice 12/12/12 [place] [id number] [address] 06/03/23
--- OUTSIDE RECORDS SUMMARY | 2025-08-29 23:35 | XMS_ITS | Data Portability ---
Author Organization [place] [facility], [facility] Address [address] [place] [address] Care Team Providers Care Science Manager Name Role Phone TG MONTEMAYOR Primary Care Provider Assessment No assessment recorded. Plan of Treatment Reminders Order Date Submit Date Provider Last Modified By Organization Details Last Modified Time Details Appointments None recorded. Lab None recorded. Referral None recorded. Procedures urodynamic testing, complex (PROC) 2024 025 [email or web address] Not available 16:51:20 Surgeries None recorded. Imaging None recorded. Medication Orders Macrobid 100 mg capsule 2024 025 [facility], [facility] [place], [address], 14:07:54 Patient TargetsNo targets recorded. Patient Instructions Encounter Date Encounter Id Patient Instructions Last Modified By Organization Details Last Modified Time 07/20/2023 [id number] 62 yo M with complicated history of systemic sarcoidosis and urinary retention - Continues to have issues with retention requiring CIC. Informed patient to try to keep total volumes < 600 cc output to prevent overdistention of the bladder. He is having to drink a lot of fluid to keep his Ca down and will discuss this with nephrology - Continue CIC - If there is no improvement, will plan on Urodynamics to assess bladder function Followup in 3 months [email or web address] Not available 07/20/2023 12:53:34 11/22/2023 [id number] 62 yo M with complicated history of systemic sarcoidosis and urinary retention - Continues to have issues with retention requiring CIC. - Not interested in Urodyanmics at this time as CIC does not bother him - Continue with CIC Follow-up in 1 year or sooner prn [email or web address] Not available 11/22/2023 13:48:00 11/23/2024 [id number] urodynamic studies: about these tests [email or web address] Not available 11/23/2024 14:20:03 63 yo M with complicated recent history with a possible TIA in early 05/12/23 and systemic sarcoidosis. - Continue CIC - Plan on UDS - Stop tamsulsoin - Follow-up pending uDS Not available 11/23/2024 15:34:21 01/01/2025 [id number] Impression: 1)large capacity, normal compliant bladder with delayed sensation 2) Absent detrusor contraction, no voiding. 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 [email or web address] Not available 01/03/2025 15:12:39 01/15/2025 [id number] 64 yo M with complicated recent history with a possible TIA in early 05/12/23 and systemic sarcoidosis. 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 Problems Name Problem SNOMED Code Status Onset Date Resolution Date Notes Provider Name and Address Organization Details Recorded Time Retention of urine 615577038 Active 2022 EFRA PERALES MD [address] [place] [address], [phone] , [facility] 3 10:01:53 Chronic kidney disease stage 3B 565602715 Active 2024 Kobi Meath null, [facility] 5 15:25:40 Inguinal hernia 925203186 Active 2024 Kobi Meath null, [facility] 5 15:25:49 Hypercalcemia 07839659 Active 2024 Kobi Meath null, [facility] 5 15:26:02 Type 2 diabetes mellitus 31242301 Active 2024 Kobimarkel Yateshca [facility], [facility] 5 15:26:15 Hypertensive disorder 09421411 Active 2024 Kobimarkel Yates rosalina, [facility] 5 15:26:24 Hyperlipidemia 81311570 Active 2024 Kobimarkel Yates rosalina, [facility] 5 15:26:36 Acontractile detrusor 870499014 Active 2024 EFRA PERALES MD [address] [place] [address],[address] [place] [address], [phone], [facility] 5 14:17:38 Problem Notes None recorded. Procedures Surgical History Date Name Laterality Status Provider Name and Address Organization Details Recorded Time 5 Urodynamic Studies completed Moy Bryson MD [address] [place] [address],[address], [place], [address], [facility] 01/03/2025 15:12:36 5 COMPLEX VISIT completed EFRA PERALES MD [address] [place] [address],[address], [place], [address], [facility] 11/23/2024 15:34:24 3 Cystoscopy- male completed EFRA PERALES MD [address] [place] [address],[address], [address], [facility] 06/15/2023 11:36:35 8 Colonoscopy completed [facility] [place] 11/22/2024 15:27:44 Imaging Results None recorded. Procedure Notes None recorded. Medical Equipment None Reported. Allergies No known drug allergies Medications Name Sig Start Date Stop Date Status Note LastModified by Organization Details LastModified Time accu-chek adelfo guide active Not Available Not Available No t Available prednison e 10 mg tablet TAKE 2 TABLETS (20 MG) BY MOUTH ONE TIME EACH DAY 01/15 completed HN: Patient reports no longer taking Not Available Not Available Not Available atorvasta tin 10 mg tablet TAKE 1 TABLET (10 MG) BY MOUTH AT BEDTIME. active Not Available Not Available No t Available prednison e 20 mg tablet 11/22 completed HN: Patient reports no longer taking Not Available Not Available Not Available simvastat in 10 mg tablet 06/15 completed Not Available Not Available Not Available prednison e 5 mg tablet TAKE 3 TABLETS BY MOUTH ONE TIME EACH DAY. 01/15 completed HN: Patient reports no longer taking Not Available Not Available Not Available glipizide ER 5 mg tablet, extended release 24 hr 06/15 completed Not Available Not Available Not Available Accu-Chek Softclix Lancets DIRECTED . TEST 4 TIMES PER DAY DUE TO PREDNISO NE USE AND ELEVATED A1C. active Not Available Not Available No t Available azathiopr ine 50 mg tablet TAKE 3 TABLETS (150 MG TOTAL) BY MOUTH 1 (ONE) TIME EACH DAY INCREASE D DOSE active Not Available Not Available No t Available amlodipin e 5 mg tablet TAKE 1 TABLET (5 MG) BY MOUTH ONCE DAILY. active Not Available Not Available No t Available sulfameth oxazole 800 mg-trimet hoprim 160 mg tablet 11/22 completed HN: Patient reports no longer taking Not Available Not Available Not Available magnesium oxide 400 mg (241.3 mg magnesium ) tablet 11/22 completed HN: Patient reports no longer taking Not Available Not Available Not Available tamsulosi n 0.4 mg capsule TAKE 1 CAPSULE (0.4 MG) BY MOUTH ONCE DAILY AFTER A MEAL. 11/23 completed Not Available Not Available Not Available prednison e 1 mg tablet TAKE 5 TABS BY MOUTH ONCE DAILY FOR 10 DAYS,4 TABS ONCE DAILY FOR 10 DAYS,3 TABS ONCE DAILY FOR 10 DAYS,2 TABS ONCE DAILY FOR 10 DAYS,1 TABLET FOR 10 DAYS active Not Available Not Available No t Available glipizide ER 2.5 mg tablet, extended release 24 hr TAKE TWO TABLETS (5MG) BY MOUTH ONCE DAILY BEFORE A MEAL active Not Available Not Available No t Available aspirin 81 mg chewable tablet Chew 1 tablet every day by oral route. active Not Available Not Available No t Available lisinopri l 5 mg tablet 11/22 completed HN: Patient reports no longer taking Not Available Not Available Not Available nitrofura ntoin monohydra te/macroc rystals 100 mg capsule TAKE 1 CAPSULE BY MOUTH TWICE A DAY FOR 3 DAYS. 01/15 completed HN: Patient reports no longer taking Not Available Not Available Not Available BD Ultra-Fin e Mini Pen Needle 31 gauge x 3/16 USE DIRECTED WITH VICTOZA DAILY 11/22 completed HN: Patient reports no longer taking Not Available Not Available Not Available Fish Oil active Not Available Not Avai lable Not Available trimethop rim 01/15 completed HN: Patient reports no longer taking HN: Patient reports no longer taking Not Available Not Available Not Available cholecalc iferol (vitamin D3) 1,250 mcg (50,000 unit) capsule TAKE 1 CAPSULE (50,000 UNITS) BY MOUTH ONCE EVERY 4 WEEKS 01/15 completed HN: Patient reports no longer taking Not Available Not Available Not Available Victoza 2-Con 0.6 mg/0.1 mL (18 mg/3 mL) subcutane ous pen injector INJECT 1.2 MG SUBCUTAN EOUSLY ONCE DAILY. 11/22 completed HN: Patient reports no longer taking Not Available Not Available Not Available Jardiance 25 mg tablet TAKE 1 TABLET (25 MG) BY MOUTH ONCE DAILY. active Not Available Not Available No t Available Trulicity 1.5 mg/0.5 mL subcutane ous pen injector INJECT 1.5 MG SUBCUTAN EOUS ONCE WEEKLY. 11/22 completed HN: Patient reports no longer taking Not Available Not Available Not Available Trulicity 0.75 mg/0.5 mL subcutane ous pen injector INJECT 0.75 MG SUBCUTAN EOUS ONCE WEEKLY. 11/22 completed HN: Patient reports no longer taking Not Available Not Available Not Available empaglifl ozin 12.5 mg-metfor min 1,000 mg tablet Take 1 tablet twice a day by oral route. active Not Available Not Available No t Available Accu-Chek Guide test strips USE TO TEST BLOOD GLUCOSE FOUR TIMES A DAY active Not Available Not Available No t Available Trulicity 3 mg/0.5 mL subcutane ous pen injector INJECT 3 MG SUBCUTAN EOUS ONCE WEEKLY. UPDATE TO PHARMACY SENT TO PA POOL TO COMPLETE PA active Not Available Not Available No t Available Vitals Date Recorded Body height Body mass index (BMI) Body weight Provider Name and Address Organization Details Last Updated DateTime 11/22/2023 177.8 cm 24.4 kg/m2 49885.7 g Kaleb Nettles [facility] 11/22/2023 12:34:31 Date Recorded Body weight Body height Body mass index (BMI) Provider Name and Address Organization Details Last Updated DateTime 11/22/2023 20229.37402 63532 g 177.8 cm 24.8 kg/m2 Not Available Health Note 11/22/2023 12:35:22 Date Recorded Body weight Body mass index (BMI) Body height Provider Name and Address Organization Details Last Updated DateTime 11/23/2024 15417.67274 91571 g 29.4 kg/m2 177.8 cm Not Available Health Note 11/23/2024 13:43:07 Date Recorded Body height Provider Name an d Address Organization Details Last Updated DateTime 01/01/2025 177.8 cm Fela eWinberg [facility] 11:25:20 Date Recorded Body height Body mass index (BMI) Body weight Provider Name and Address Organization Details Last Updated DateTime 01/15/2025 177.8 cm 29.4 kg/m2 90730.44 g Nahomy Charles [facility] 01/15/2025 14:07:21 Date Recorded Body height Provider Name an d Address Organization Details Last Updated DateTime 07/20/2023 177.8 cm Kaleb Nettles [facility] 12:23:11 Social History Question Answer Notes LastModified by Organizat ion Details LastModified Time Tobacco Smoking Status Former Smoker Not Available Health Note 11/19/2024 15:24:33 Do You Have An Advance Directive? Yes [email or web address] Information not available 11/19/2024 What Is Your Level Of Caffeine Consumption? Moderate [email or web address] Information not available 11/19/2024 How Much Tobacco Do You Chew? None [email or web address] Information not available 11/19/2024 When Did You Quit Smoking? 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 01/15/2025 [email or web address] Information not available 01/15/2025 Have You Ever Been Counseled For Unhealthy Alcohol Use? No [email or web address] Information not available 06/15/2023 What Is Your Relationship Status? [email or web address] Information not available 11/19/2024 Are You Sexually Active? No [email or web address] Information not available 11/19/2024 How Much Tobacco Do You Smoke? No [email or web address] Information not available 11/23/2024 Has Tobacco Cessation Counseling Been Provided? No Information not available 01/15/2025 On What Date Was Tobacco Cessation Counseling Provided? 11/23/2024 [email or web address] Information not available 11/23/2024 How Many Years Have You Smoked Tobacco? 15 [email or web address] Information not available 11/19/2024 How Many Days In The Past Year Have You Consumed 5 Or More Drinks? 0 [email or web address] Information no t available 11/19/2024 Sex: Unknown Functional Status Question Answer Note LastModified by Organizat ion Details LastModified Time How many times per week do you consume alcohol? Less than 1 time per week [email or web address] Information not available 06/15/2023 Do you use any illicit or recreational drugs? No [email or web address] Information not available 11/19/2024 What is your level of alcohol consumption? None [email or web address] Information not available 11/23/2024 Do you or have you ever used smokeless tobacco? Never used smokeless tobacco [email or web address] Information not available 11/19/2024 Do you or have you ever used e-cigarettes or vape? Never used electronic cigarettes [email or web address] Information not available 11/19/2024 Mental Status None recorded. Family History Relationship Description Onset Age of this Age Resolved Age Notes LastModified by Organization Details LastModified Time Maternal Grandfather Family history of diabetes mellitus [email or web address] Not available 2022 09:27:25 Father Family history of malignant neoplasm of prostate [email or web address] Not available 2022 09:27:45 Medical History Condition Response High Blood Pressure Y Kidney Stones N Lung Disease N Depression N GERD/Acid Reflux N Sexually Transmitted Infection N Diabetes Y Bleeding Disorder N Cancer N High Cholesterol N Heart Disease N Immunizations Vaccine Type Date Status Note Provider Nam e and Address Organization Details Recorded Time SARS-COV-2 (COVID-19) vaccine, UNSPECIFIED 3 [facility] 15:24:54 zoster live 0 completed Not Available Health Note 11/20/2023 14:44:58 influenza, unspecified formulation 3 completed Kobi Trudy null, [facility] 11/22/2024 15:24:54 zoster live 9 completed Not Available Health Note 11/19/2024 15:24:37 SARS-COV-2 (COVID-19) vaccine, UNSPECIFIED 4 completed Zandra Moeller [facility], [facility] 11/23/2024 13:51:35 influenza, unspecified formulation 4 completed Zandra Moeller [facility] 11/23/2024 13:51:35 pneumococcal, unspecified formulation 4 completed Not Available Health Note 11/19/2024 15:24:37 RSV, bivalent, protein subunit RSVpreF, diluent reconstituted, 0.5 mL, PF 3 [facility] 15:24:54 COVID-19, mRNA, LNP-S, PF, 50 mcg/0.5 mL 3 [facility] 15:24:54 Influenza, split virus, quadrivalent, PF 3 [facility] 15:24:54 zoster recombinant 9 completed Kaleb Nettles null, [facility] 07/20/2023 12:23:17 zoster recombinant 9 [facility] 12:23:17 COVID-19, mRNA, LNP-S, PF, 100 mcg/0.5mL dose or 50 mcg/0.25mL dose 1 completed Kaleb Tho null, [facility] 07/20/2023 12:23:17 COVID-19, mRNA, LNP-S, PF, 100 mcg/0.5mL dose or 50 mcg/0.25mL dose 1 completed Kaleb Tho null, [facility] 07/20/2023 12:23:17 COVID-19, mRNA, LNP-S, PF, 30 mcg/0.3 mL dose 1 completed Kaleb Tho null, [facility] 07/20/2023 12:23:17 COVID-19, mRNA, LNP-S, PF, 30 mcg/0.3 mL dose, see-sucrose 2 completed Kaleb Tho null, [facility] 07/20/2023 12:23:17 COVID-19, mRNA, LNP-S, bivalent, PF, 30 mcg/0.3 mL dose 2 completed Kaleb Tho null, [facility] 07/20/2023 12:23:17 pneumococcal polysaccharide PPV23 8 completed Kaleb Tho null, [facility] 07/20/2023 12:23:17 Tdap 0 completed Kaleb Tho null, [facility] 07/20/2023 12:23:17 Tdap 0 completed Kaleb Tho null, [facility] 07/20/2023 12:23:17 Novel [id number], all formulations 9 completed Kaleb Tho null, [facility] 07/20/2023 12:23:17 Influenza, split virus, trivalent, preservative 0 completed Kaleb Tho null, [facility] 07/20/2023 12:23:17 Influenza, split virus, trivalent, preservative 3 completed Kaleb Tho null, [facility] 07/20/2023 12:23:17 Influenza, split virus, trivalent, PF 1 completed Kaleb Tho null, [facility] 07/20/2023 12:23:17 Influenza, split virus, quadrivalent, PF 2 completed Kaleb Tho null, [facility] 07/20/2023 12:23:17 Influenza, split virus, quadrivalent, PF 8 completed Kaleb Tho null, [facility] 07/20/2023 12:23:18 Influenza, split virus, quadrivalent, PF 1 completed Kaleb Tho null, [facility] 07/20/2023 12:23:18 Influenza, split virus, quadrivalent, PF 0 completed Kaleb Tho null, [facility] 07/20/2023 12:23:18 Influenza, split virus, quadrivalent, PF 5 completed Kaleb Tho null, [facility] 07/20/2023 12:23:18 Influenza, split virus, quadrivalent, PF 7 completed Kaleb Tho null, [facility] 07/20/2023 12:23:18 Influenza, split virus, quadrivalent, PF 6 completed Kaleb Tho null, [facility] 07/20/2023 12:23:18 Influenza, split virus, quadrivalent, PF 4 completed [facility], [facility] 07/[facility] 12:23:18 Influenza, split virus, quadrivalent, PF 9 completed Kaleb Tho null, [facility] 07/20/2023 12:23:18 Hep A-Hep B 4 completed Kaleb Tho null, [facility] 07/20/2023 12:23:18 Hep A-Hep B 4 completed Kaleb Tho null, [facility] 07/20/2023 12:23:18 Hep A-Hep B 4 completed Kaleb Tho null, [facility] 07/20/2023 12:23:18 Past Encounters Encounter ID Performer Location Encounter Start Date Encounter Closed Date Diagnosis/Indication Diagnosis SNOMED-CT Code Diagnosis ICD10 Code Diagnosis IMO Codes Diagnosis Note [id number] EFRA PERALES MD [facility] [address] [address] 06/15/2023 09:12:40 06/15/2023 11:52:52 Retention of urine 471318480 R33.9 [id number] MD Christophe VILLAGOMEZ[facility] [address] [place] [address],[address] [place] [phone] 07/20/2023 12:21:45 07/20/2023 12:55:12 Retention of urine 117700149 R33.9 18F male straight tipQty per day: 6Lenght of need: 99Can send variety pack to try [id number] MD Christophe VILLAGOMEZ_[facility] [address] [place] [address],[address] [place] [phone] 11/22/2023 12:31:42 11/22/2023 14:04:29 Retention of urine 335656863 R33.9 18F male straight tipQty per day: 6Lenght of need: 99Can send variety pack to try [id number] MD Christophe VILLAGOMEZBobby [address] [place] [phone] 11/23/2024 13:39:15 11/23/2024 16:35:57 Retention of urine 306550285 R33.9 18F male straight tipQty per day: 6Lenght of need: 99Can send variety pack to try [id number] MD Cornelio VILLAGOMEZ [facility] [address] [place] [address],[address] [place] [phone] 01/01/2025 11:11:39 01/04/2025 16:03:17 Retention of urine 184406671 R33.9 [id number] MD Cornelio VILLAGOMEZ [address] [place] [phone] 01/15/2025 13:45:40 01/23/2025 15:34:09 Retention of urine 923156412 R33.9 Acontractile detrusor 19 5666834 N31.2 Health Concerns Section Related Observation LastModified by Organization Detai ls LastModified Time None Recorded Concern Status LastModified by Organization Details LastModified Time None Recorded Advance Directives Directive Y: Payers Insurance Date Sequence Insurance Name Policy Number Policy Chin Covered Member ID Chin Member ID Guarantor Name 01/23/2025 1 [place] [id number] Leon r Bettie Dianaetveld [id number] Steve Dianaetveld 01/01/2025 2 [place] Leon r Bettie Rietveld [id number] Steve Dianaetveld 01/01/2025 1 [place] [id number] Leon r Bettie Dianaetveld [id number] Steve Dianaetveld 01/01/2025 1 [employer] Cristóbal Bettie Rietveld [id number] Steve Dianaetveld 01/01/2025 2 MEDICA - IFB (PPO) IFB Leon Alexandre Rietveld [id number] Steve Dianaetveld 01/01/2025 3 MEDICA - MEDICA GOVERNMENT PROGRAMS (MEDICAID REPLACEMENT - HMO) Leon Dianaetveld [id number] Steve Dianaetveld 01/01/2025 1 [employer] (MEDICARE REPLACEMENT/ ADVANTAGE - PPO) [id number] 0001 Leon Dianaetveld [id number] Steve Dianaetveld 01/01/2025 [employer] [place] [employer] ([facility]) Leon Dianaetveld [id number] Steve Kwok Notes Date Note Type Note Provider Name and Address Organization Details Recorded Time 3 text/html ROS as noted in the HPI 62 yo M with complicated recent history with a possible TIA in early 05/12/23 and systemic sarcoidosis. He was found to be in urinary retention and he first had a ellsworth placed on 05/02/23. He then had 2 attempted void trials but had to have the catheter replaced. PSA 1.37 on 05/08/23. Previous to this, he had urinary frequency, rare urgency, moderate stream, he had straining but could not tell if he was emptying. No hematuria. No history of stones. Has been on flomax since 04/2023. During hospitalization for hypercalcemia Urology was consulted for microscopic hematuria with bladder wall thickening. CT was without hydro. He underwent a outpatient PET scan on 05/22 that again revealed widespread bone lesions in his spine pelvis thorax and extremities. He was nonspecific possible lymphoproliferative process such as lymphoma. There were no lytic lesions present suggesting of multiple myeloma or plasmacytoma. He had multiple enlarged lymph nodes.Biopsy of nodes demonstrated sarcoidosis. He is following very closely as an outpatient at this time. He had a cystoscopy, with me on 06/15/23 without an obstructing prostate. No lesions in bladder. He failed a void trial and was started on CIC. He is here for review of his diary. At times he is able to void about 75% but usually will cath with 75% of his output after voiding. his volumes have been incredibly high around 0426-9126 total output. This is almost every 3-4 hours. He has been consuming a lot of fluid as directed by nephrology to keep his calcium down. He will discuss this with them further. EFRA PERALES MD [address] [place] [address],[address], [place], [phone], [facility] 07/20/2023 12:53:44 4 text/html 62 yo M with complicated recent history with a possible TIA in early 05/12/23 and systemic sarcoidosis. He was found to be in urinary retention and he first had a ellsworth placed on 05/02/23. He then had 2 attempted void trials but had to have the catheter replaced. PSA 1.37 on 05/08/23. He has been doing CIC since, minimal spontaneous voiding. Previous to this, he had urinary frequency, rare urgency, moderate stream, he had straining but could not tell if he was emptying. No hematuria. No history of stones. Has been on flomax since 04/2023. During hospitalization for hypercalcemia Urology was consulted for microscopic hematuria with bladder wall thickening. CT was without hydro. He underwent a outpatient PET scan on 05/22 that again revealed widespread bone lesions in his spine pelvis thorax and extremities. He was nonspecific possible lymphoproliferative process such as lymphoma. There were no lytic lesions present suggesting of multiple myeloma or plasmacytoma. He had multiple enlarged lymph nodes.Biopsy of nodes demonstrated sarcoidosis. He is following very closely as an outpatient at this time.He had a cystoscopy, with me on 06/15/23 without an obstructing prostate. No lesions in bladder. No changes in his voiding patterns, continues on CIC. EFRA PERALES MD [address] [facility],[address], [place], [address], [facility] 11/22/2023 13:48:15 5 text/html 63 yo M with complicated recent history with a possible TIA in early 05/12/23 and systemic sarcoidosis.He was found to be in urinary retention and he first had a ellsworth placed on 05/02/23. He then had 2 attempted void trials but had to have the catheter replaced.PSA 1.37 on 05/08/23.He has been doing CIC since, minimal spontaneous voiding.Previous to this, he had urinary frequency, rare urgency, moderate stream, he had straining but could not tell if he was emptying. No hematuria. No history of stones. Has been on flomax since 04/2023.During hospitalization for hypercalcemia Urology was consulted for microscopic hematuria with bladder wall thickening. CT was without hydro. He underwent a outpatient PET scan on 05/22 that again revealed widespread bone lesions in his spine pelvis thorax and extremities. He was nonspecific possible lymphoproliferative process such as lymphoma. There were no lytic lesions present suggesting of multiple myeloma or plasmacytoma. He had multiple enlarged lymph nodes.Biopsy of nodes demonstrated sarcoidosis. He is following very closely as an outpatient at this time.He had a cystoscopy, with me on 06/15/23 without an obstructing prostate. No lesions in bladder.No changes in his voiding patterns, continues on CIC. 11/23/24: He is doing well on CIC. Not much spontaneous voiding. No UTIs or hematuria. INterested in UDS now. EFRA PERALES MD [address] [place] [address],[address], [place], [address], [facility] 11/23/2024 15:34:45 5 text/html 64 yo M with complicated recent history with a possible TIA in early 05/12/23 and systemic sarcoidosis.He was found to be in urinary retention and he first had a ellsworth placed on 05/02/23. He then had 2 attempted void trials but had to have the catheter replaced.PSA 1.37 on 05/08/23.He has been doing CIC since, minimal spontaneous voiding.Previous to this, he had urinary frequency, rare urgency, moderate stream, he had straining but could not tell if he was emptying. No hematuria. No history of stones. Has been on flomax since 04/2023.During hospitalization for hypercalcemia Urology was consulted for microscopic hematuria with bladder wall thickening. CT was without hydro. He underwent a outpatient PET scan on 05/22 that again revealed widespread bone lesions in his spine pelvis thorax and extremities. He was nonspecific possible lymphoproliferative process such as lymphoma. There were no lytic lesions present suggesting of multiple myeloma or plasmacytoma. He had multiple enlarged lymph nodes.Biopsy of nodes demonstrated sarcoidosis. He is following very closely as an outpatient at this time.He had a cystoscopy, with wa on 06/15/23 without an obstructing prostate. No lesions in bladder.No changes in his voiding patterns, continues on CIC.11/23/24: He is doing well on CIC. Not much spontaneous voiding. No UTIs or hematuria. INterested in UDS now. 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 Good compliance. Doing well. Discussed likely lifelong CIC. EFRA PERALES MD [address] [facility],[address], [place], [address], [facility] 01/15/2025 14:18:19
--- OUTSIDE RECORDS SUMMARY | 2025-08-29 23:35 | XMS_ITS | Clinical Summary ---
Author Organization [place] Address [facility] [address] Care Team Providers Care College Intern Name Role Phone Matt Kelly MD Primary Care Provider Allergies No known active allergies Medications [place]-3 Fatty Acids (FISH OIL) 300 MG CAPS Active JARDIANCE 25 MG TABS tablet Take 25 mg by mouth daily. 07/19/2023 Active glipiZIDE (GLUCOTROL) 5 MG tablet Take 5 mg by mouth. 02/19/2025 Active aspirin 81 MG EC tablet Take 81 mg by mouth daily. Active atorvastatin (LIPITOR) 10 MG tablet Take 10 mg by mouth daily. Active amLODIPine (NORVASC) 5 MG tablet Take 5 mg by mouth daily. Active azaTHIOprine 100 MG TABS Take 150 mg by mouth. Active Social History Tobacco Use Types Packs/Day Years Used Date Smoking Tobacco: Former Cigarettes Tobacco Cessation:Counseling Given: Not Answered Alcohol Use Standard Drinks/Week Comments Not Asked 0 (1 standard drink = 0.6 oz pur e alcohol) couple drinks once monthly Interpersonal Safety Answer Date Record ed Do you feel physically and e motionally safe where you currently live? Yes 03/29/2025 Within the past 12 months, h ave you been hit, slapped, kicked or otherwise physically hurt by someone? No 03/29/2025 Within the past 12 months, h ave you been humiliated or emotionally abused in other ways by your partner or ex-partner? No 03/29/2025 Sex and Gender Information Value Date Recorded Sex Assigned at Not on file Legal Sex Male 9:29 AM CDT Gender Identity Not on file Sexual Orientation Not on file Last Filed Vital Signs Vital Sign Reading Time Taken Comments Blood Pressure 111/70 03/29/2025 2:54 PM CDT Pulse 76 03/29/2025 2:54 PM CDT Temperature - - Respiratory Rate 14 03/29/2025 2:54 PM CDT Oxygen Saturation 96% 03/29/2025 2:54 PM CDT Inhaled Oxygen Concentration - - Weight 99.3 kg (219 lb) 03/29/2025 1:20 PM CDT Height 177.8 cm (5' 10) 03/29/2025 1:20 PM CDT Body Mass Index 31.42 03/29/2025 1:20 PM CDT Plan of Treatment Health Maintenance Due Date Last Done Comments ADVANCE CARE PLANNING 1960 ANNUAL REVIEW OF HM ORDERS 1962 CT COLONOGRAPHY 1962 FIT 1962 FLEX SIG 1962 LIPID 1962 sDNA (Cologuard) 1962 HEPATITIS C SCREENING 1980 LUNG CANCER SCREENING 05/08/2024 05/08/2023 PHQ-2 (once per calendar year) 2024 COVID-19 VACCINE ( season) 2025 08/21/2024, 08/16/2023, 07/13/2022, Additional history exists INFLUENZA VACCINE (#1) 2025 , 08/17/2024, 08/16/2023, Additional history exists YEARLY PREVENTIVE VISIT 10/02/2025 10/02/2024 COLONOSCOPY 03/09/2028 03/09/2018 COLORECTAL CANCER SCREENING 03/09/2028 DIABETES SCREENING 03/29/2028 03/29/2025 DTAP/TDAP/TD VACCINE (4 - Td or Tdap) 07/22/2030 07/22/2020, 02/11/2010, 10/24/2009 ZOSTER VACCINE Completed 10/24/2019, 06/24, 03/26/2019, Additional history exists HIV SCREENING Completed 05/27/2023 RSV VACCINE Completed 09/07/2023 PNEUMOCOCCAL VACCINE 50+ YEARS Completed 08/07/2024, 08/07/2024, 10/24/2012, Additional history exists HPV VACCINE (No Doses Required) Completed MENINGITIS VACCINE Aged Out No longer eligible based on patient's age to complete this topic Procedures Procedure Name Priority Date/Time Associated Diagnosis Comments GLUCOSE BY METER Routine 03/29/2025 1:19 PM CDT from Last 3 Months or Most Recently Relevant to Health Maintenance Results * (ABNORMAL) Glucose by meter (03/29/2025 1:19 PM CDT) GLUCOSE BY METER POCT 111(H) 70 - 99 mg/dL 03/29/2025 1:26 PM CDT LABORATORY POC Blood, Capillary BLOOD SPECIMEN / Unknown 03/29/2025 1:19 PM CDT 03/29/2025 1:26 PM CDT Latanya Cabral MD LAB - BEAKER POCT [facility] al Result LABORATORY POC [facility] Acute Care Lab [address] 1[address] floor, [address] [place] [address], [facility] from Last 3 Months or Most Recently Relevant to Health Maintenance Insurance [facility] Care Teams College Intern Relationship Specialty Start Date End Date Matt Kelly MD [facility] [place] [id number] PCP - General 03/19/25
--- NOTE | 2025-08-29 23:39 | ED.GENADULT ---
HPI - General Adult General Time Seen by Provider: 23:39 Date Seen: 08/29/25 Chief complaint: Shortness of Breath/Dyspnea Stated complaint: trouble breathing when laying down Time Seen by Provider: 08/29/25 23:39 Source: patient and RN notes reviewed Mode of arrival: ambulatory Limitations: no limitations History of Present Illness HPI narrative: 64-year-old male with history of sarcoid and hypertension who presents today with shortness. He only notices this when he is lying down, and says is worse when he lays on either side. He denies cough or chest pain. He has no sore throat, fever chills. He denies lower extremity swelling. Reports he has had an echocardiogram within the last 6 months that he was says was normal. He gets his care through the [facility]. Related Data Home Medications ?Medication ?Instructions ?Recorded ?Confirmed aspirin 81 mg capsule 81 mg PO DAILY 05/02/23 08/29/25 atorvastatin 10 mg tablet 10 mg PO QHS 05/02/23 08/29/25 Held on 08/29/25. Instructions: nephrology put on hold cholecalciferol (vitamin D3) 1,250 50,000 unit PO QWEEK 05/02/23 08/29/25 mcg (50,000 unit) capsule empagliflozin 25 mg tablet 12.5 mg PO QAM 05/02/23 08/29/25 (Jardiance) liraglutide 0.6 mg/0.1 mL (18 mg/3 1.2 mg subcut DAILY 05/02/23 05/02/23 mL) subcutaneous pen injector (Victoza 2-Con) omega 8-hxj-yao-fish oil 300 1 cap PO BID 05/02/23 05/02/23 mg-1,000 mg capsule (Fish Oil) lisinopril 2.5 mg tablet 2.5 mg PO DAILY 05/07/23 05/07/23 azathioprine 50 mg tablet 150 mg PO DAILY 08/29/25 08/29/25 glipizide 2.5 mg tablet, extended mg PO 08/29/25 release 24 hr Allergies Allergy/AdvReac Type Severity Reaction Status Date / Time No Known Drug Allergies Allergy Verified 05/02/23 16:23 [facility] Medical History (Updated 08/30/25 @ 01:43 by Valentin Josue MD) Low vitamin D level ?R79.89 - Other specified abnormal findings of blood chemistry (ICD-10) Low back pain ?M54.50 - Low back pain, unspecified (ICD-10) Hypertension ?I10 - Essential (primary) hypertension (ICD-10) Acute kidney injury ?N17.9 - Acute kidney failure, unspecified (ICD-10) Diabetes mellitus ?E11.9 - Type 2 diabetes mellitus without complications (ICD-10) Sarcoidosis ?D86.9 - Sarcoidosis, unspecified (ICD-10) Surgical History (Updated 05/02/23 @ 20:50 by Robert Govea MD) History of vasectomy ?Z98.52 - Vasectomy status (ICD-10) History of hernia repair ?Z98.890 - Other specified postprocedural states (ICD-10) ?Z87.19 - Personal history of other diseases of the digestive system (ICD-10) Family History (Updated 05/02/23 @ 20:51 by Robert Govea MD) Mother High blood pressure Bone cancer Father High blood pressure Stroke Social History (Updated 05/02/23 @ 20:52 by Robert Govea MD) Narrative: He lives with his in [place]. 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 He is a former smoker. Does not use recreational drugs. Infrequently drinks alcohol What is your current living situation?: I presently have a place to live Problems where you live: no known problems Problems where you live details: none In the past 12 months, utilities in danger of being shut off: no In past 12 months, lack of transportation kept you from medical appts, meetings, work, or getting things needed for daily living: no In the past 12 mos, have been you worried that your food would run out before you had money to buy more?: never true In the past 12 mos, the food you bought just didn't last and you didn't have money to buy more?: never true Highest level of school completed/degree received: Associate degree: occupational, technical, vocational program Smoking Status: Former smoker What tobacco products do you use: cigarettes Years smoked: 2 Smoking quit date/years: >15 years ago, cigars and pipe Second hand tobacco smoke exposure: No How often do you have a drink containing alcohol: monthly or less How many standard drinks containing alcohol do you have on a typical day: 3 or 4 How often do you have six or more drinks on one occasion: Never AUDIT-C Alcohol total score: 2 Non-prescribed substance use: denies use Caffeine: Yes How often does anyone, including family, friends and others, physically hurt you: never How often does anyone, including family, friends and others, insult or talk down to you: never How often does anyone, including family, friends and others, threaten you with harm: never How often does anyone, including family, friends and others, scream or curse at you: never service: Yes Exam Narrative: Exam Narrative: General: Well-developed and well-nourished, no acute distress Head: Atraumatic and normocephalic Eyes: Pupils are equal reactive, extraocular motions intact, conjunctiva clear ENT: External nose and ears are normal, posterior pharynx without erythema or exudate Neck: No midline cervical tenderness, full spontaneous range of motion the neck, trachea midline, no adenopathy Heart: Regular rate and rhythm no murmurs or thrills Lungs: diminished breath sounds throughout Abdomen: Soft, nontender, nondistended with active bowel sounds Musculoskeletal: No tenderness, deformity, or edema Neurologic: Awake, alert, and oriented x3, no gross focal neurologic deficits, cranial nerves intact as tested Psych: Mood and affect are appropriate Skin: No rashes Const: Vital Signs, click to edit/add: Vital Signs - 24 hr 08/29/25 23:50 08/30/25 00:31 08/30/25 00:39 Temperature 98.1 F Pulse Rate 91 97 Pulse Rate [Pulse Oximeter] 99 Respiratory Rate 16 13 16 Blood Pressure 110/87 Blood Pressure [Ri ght Upper Arm] 172/86 H Pulse Oximetry 99 100 95 Oxygen Delivery Me thod Room Air Room Air 08/30/25 01:01 08/30/25 01:34 Temperature 98.0 F Pulse Rate 105 H 109 H Pulse Rate [Pulse Oximeter] Respiratory Rate 12 14 Blood Pressure 140/89 H Blood Pressure [Ri ght Upper Arm] Pulse Oximetry 96 98 Oxygen Delivery Me thod Course Course ED Course: Reviewed echocardiogram from April 2023 which showed borderline increased pulmonary pressures, ejection fraction 62% and normal right ventricular function. Patient reports medications including amlodipine, atorvastatin which she has not been taking for some time, azathioprine. patient presents today with orthopnea for the last couple of days. No associated chest pain or extremity swelling, reports normal echocardiogram within last 6 months. On exam here patient is hypertensive but otherwise vital is stable, lungs with diminished air movement throughout. Consider pulmonary edema, also consider upper respiratory infection or pneumonia. Labs and x-ray ordered along with DuoNeb, consider CT PE study if D-dimer is positive. Reevaluation(s) Time of Reevaluation #1: 00:12 Reevaluation #1: EKG independently interpreted by me performed at 1:08 a.m. demonstrates sinus rhythm with first-degree AV block, rate 85, QTC 399, [place] to 74, no acute ischemic changes. No change from prior of April 2023. Chest x-ray independently interpreted by me negative for acute findings. Time of Reevaluation #2: 00:55 Reevaluation #2: Labs independently interpreted by me with creatinine 1.7 which appears quite good for the patient, BNP 86. D-dimer slightly elevated 0.72. CT PE studies ordered. Updated patient, he feels better after nebulizer treatment, notes that he is taking Ozempic. Time of Reevaluation #3: 01:39 Reevaluation #3: CT PE study independently interpreted by me with no acute pleural effusion, no pericardial effusion, no pulmonary embolism, no infiltrate. Patient is little more tachycardic than earlier, this may be related to nebulizer treatment, IV fluids are ordered. Plan for discharge with prednisone and albuterol inhaler, close follow-up with primary care. Updated patient with finding the plan, stable for discharge. Vital Signs Vital signs: Initial Vital Signs Temperature 98.1 F 08/29/25 23:50 Temperature Source Temporal Artery Scan 08/29/25 23:50 Pulse Rate 99 08/29/25 23:50 Respiratory Rate 16 08/29/25 23:50 Blood Pressure 172/86 H 08/29/25 23:50 Blood Pressure Mean 114 H 08/29/25 23:50 Blood Pressure Position Semi-Fowlers 08/29/25 23:50 Pulse Oximetry 99 08/29/25 23:50 Oxygen Delivery Method Room Air 08/29/25 23:50 Vital Signs Temperature 98.1 F 08/29/25 23:50 Pulse Rate 99 08/29/25 23:50 Respiratory Rate 16 08/29/25 23:50 Blood Pressure 172/86 H 08/29/25 23:50 Pulse Oximetry 99 08/29/25 23:50 Oxygen Delivery Method Room Air 08/29/25 23:50 Temperature 98.0 F 08/30/25 01:34 Pulse Rate 109 H 08/30/25 01:34 Respiratory Rate 14 08/30/25 01:34 Blood Pressure 140/89 H 08/30/25 01:01 Pulse Oximetry 98 08/30/25 01:34 Oxygen Delivery Method Room Air 08/30/25 00:31 Medications Administered Medications: Generic Name Dose Route Start Last Admin Trade Name Freq PRN Reason Stop Dose Admin Sodium Chloride 1,000 mls @ 1,000 mls/hr 08/30/25 01:45 08/30/25 01:50 0.9 % Sodium Chloride 1000 Ml IV 08/30/25 02:44 1,000 mls/hr .Q1H LILY Administration Discontinued Medications Generic Name Dose Route Start Last Admin Trade Name Freq PRN Reason Stop Dose Admin Albuterol/Ipratropium 1 neb 08/30/25 00:02 08/30/25 00:24 Iprat-Albut 0.5-2.5 Mg/3 Ml Neb IH 08/30/25 00:03 1 neb ONCE ONE Administration Medical Decision Making Lab Data Labs: Lab Results 08/30/25 Range/Units 00:00 WBC 4.30 L (4.50-11.00) K/uL RBC 3.84 L (4.30-5.90) m/uL Hgb 12.9 L (13.5-17.5) gm/dL Hct 38.4 (37.0-53.0) % MCV 100 (80-100) fL MCH 34 (26-34) pg MCHC 34 (32-36) gm/dL RDW Coeff of Raman 15.7 H (11.5-15.5) % Plt Count 239 (140-440) K/uL Neut % (Auto) 69.0 (42.0-72.0) % Lymph % (Auto) 8.8 L (20-44) % [place] % (Auto) 15.3 H (0.0-11.0) % Eos % (Auto) 5.3 (0.0-7.0) % Baso % (Auto) 0.7 (0.0-3.0) % Neut # (Auto) 3.00 (1.7-7.0) K/uL Lymph # (Auto) 0.40 L (0.90-2.90) K/uL [place] # (Auto) 0.70 (0.00-0.90) K/UL Eos # (Auto) 0.20 (0.00-0.50) K/uL Baso # (Auto) 0.00 (0.00-0.30) K/uL Abs Immat Gran (auto) 0.00 (0.00-0.30) K/uL Imm/Tot Granulo (auto) 0.9 % D-Dimer Quant (PE/DVT) 0.72 H (0.00-0.50) ug/ml Sodium 137 (135-149) mmol/L Potassium 3.8 (3.6-5.1) mmol/L Chloride 104 (96-114) mmol/L Carbon Dioxide 25 (20-32) mmol/L Anion Gap 8 (7-15) mEq/L BUN 25 (7-30) mg/dL Creatinine 1.7 H (0.5-1.5) mg/dL Estimated GFR 45 ml/min Glucose 151 H (60-115) mg/dL Calcium 10.7 H (8.4-10.6) mg/dL Magnesium 1.8 (1.5-2.6) mg/dL NT-Pro-B Natriuret Pep 86 (See Note) pg/mL Discharge Plan Discharge Clinical Impression: Orthopnea, Sarcoidosis, CKD (chronic kidney disease) Patient Disposition: Home, Self-Care Condition: Stable Instructions: Dyspnea (ED) Additional Instructions: Use inhaler and take prednisone as prescribed follow-up with your primary care provider as soon as possible Activity Level: Activity as Tolerated Discharge Diet: Regular Prescriptions: No Action cholecalciferol (vitamin D3) 1,250 mcg (50,000 unit) capsule 50,000 unit PO QWEEK Victoza 2-Con 0.6 mg/0.1 mL (18 mg/3 mL) pen injector 1.2 mg subcut DAILY atorvastatin 10 mg tablet 10 mg PO QHS aspirin 81 mg capsule 81 mg PO DAILY Jardiance 25 mg tablet 12.5 mg PO QAM omega 7-nue-jwp-fish oil [Fish Oil] 300-1,000 mg capsule 1 cap PO BID lisinopril 2.5 mg tablet 2.5 mg PO DAILY azathioprine 50 mg tablet 150 mg PO DAILY glipizide 2.5 mg tablet extended release 24hr PO Follow Up/Referrals: Joan Monk MD [Primary Care Provider, Family Practice] Stand Alone Forms: [employer] Info Instructions
[2025-08-29 23:50] VITALS: BP 172/86; PULSE 99; RESP 16; TEMP 36.7; O2SAT 99
--- NOTE | 2025-08-29 23:58 | CRLHL7_ITS ---
For Patients: As a result of the Century Cures Act, medical imaging exams and procedure reports are released immediately into your electronic medical record. You may view this report before your referring provider. If you have questions, please contact your health care provider. INDICATION: Orthopnea. TECHNIQUE: Chest 2 views. COMPARISON: 05/02/[address] FINDINGS: Cardiovascular and mediastinum: Heart size and vasculature are normal in caliber and appearance. Lungs and pleural spaces: No focal consolidation, pleural effusion, or pneumothorax. Bones and soft tissues: Unremarkable for age. IMPRESSION: No evidence of an acute pulmonary process. Dictated by Moy Benedict MD @ 08/30/2025 12:45:17 AM (Electronically Signed)
[2025-08-30] VITALS (7 sets, daily range): BP systolic 110–140; BP diastolic 82–89; PULSE 91–110; RESP 12–18; TEMP 36.7; O2SAT 95–100
--- OUTSIDE RECORDS SUMMARY | 2025-08-30 00:07 | XMS_ITS | Clinical Summary ---
Author Organization [employer] [facility] Address [address] [place] [address] Care Team Providers Care Tick Eradicator Name Role Phone Joan Monk MD Primary Care Prov ider [facility] Care, [place] Unavailable [phone] Allergies No known active allergies Medications blood-glucose [...] insulin pen needle before administering insulin dose. [id number]. Wait to fill until patient calls 100 [...] Type Department Care Team Description 06/27/2025 Telephone [facility] [address] [place] [address] Joan Monk MD Error-please disregard from Last 3 Months Immunizations Immunization Administration Dates Next Due COVID-19 VACCINE SPIKEVAX (M ODERNA 50MCG/0.5ML) 12YO+ PFS 08/21/2024,08/16/2023 COVID-19 vaccine (Moderna 100mcg/0.5mL) PF, MDV 01/14/2021,12/17/2020 COVID-19 vaccine (Pfizer-Bio NTech 30mcg/0.3mL) 12YO+ BIVALENT PF, MDV 07/13/2022 COVID-19 vaccine (Anki-Bio NTech 30mcg/0.3mL) 12YO+ GREGORY-SUCROSE PF, MDV 03/15/2022 COVID-19 vaccine (Anki-Bio NTech 30mcg/0.3mL) PF, MDV 09/03/2021 HepA-HepB (Twinrix) [...] on file 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 Gender Identity Not on file Sexual Orientation [...] 177.8 cm (5' 10) 10/02/2024 7:23 AM TELEVISION SERVICER Body Mass Index 30.96 10/02/2024 7:23 AM TELEVISION 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 Blood BLOOD SPECIMEN / Unknown Venipuncture / Unknown 05/27/2023 7:12 AM CDT 05/27/2023 7:26 AM CDT us Demarcus Curiel MD CHEMISTRY Final Result [facility] SENDOUT INTERNAL ZIP [address] [place] [address] * LIPID PANEL W REFLEX MEASURED LDL (05/24/2023 12:30 PM CDT) CHOLESTEROL,TOTAL 123 100 - 199 mg/dL 05/25/2023 1:33 AM CDT [facility] [employer] [facility] Comment: Cholesterol, Total Reference Ranges Desirable <200 mg/dL Borderline 200-239 mg/dL High >=240 mg/dL TRIGLYCERIDES 112 <150 mg/dL 05/25/2023 1:33 AM CDT [facility] [employer] [facility] HDL CHOLESTEROL 50 >40 mg/dL 1:33 AM CDT [facility] NON-HDL CHOLESTEROL 73 <145 mg/dl 05/25/2023 1:33 AM CDT [facility] CHOL/HDL RATIO 2.46 <4.50 05/25/2023 1:33 AM CDT [facility] LDL CHOLESTEROL 51 <=130 mg/dL 05/25/2023 1:33 AM CDT [facility] VLDL CHOLESTEROL 22 <=30 mg/dL 05/25/2023 1:33 AM CDT [facility] PROVIDER ORDERED STATUS RANDOM 05/25/2023 1:33 AM CDT [facility] Blood BLOOD SPECIMEN / Unknown Venipuncture / Unknown 05/24/2023 12:30 PM CDT 05/24/2023 12:31 PM CDT us Joan Monk MD CHEMISTRY Fi nal Result [facility] [address] [place] [address], from Last 3 Months or Most Recently Relevant to Health Maintenance Insurance [employer] Advance Directives Documents on File Type Date Recorded Patient Technical Services Manager Expl anation Power of Counter Clerk [employer] 08/25/2016 12:06 PM DURA BLE POWER OF AUTO POLISHER FOR HEALTH CARE AND LIVING WILL, MALGORZATA [...] Code Status Discussion: Reviewed Preferences Care Teams Tick Eradicator Relationship Specialty Start Date End Date Joan Monk MD [address] [place] [address] PCP - General Family Practice 12/12/12 [place] [id number] [address] [address] 06/03/23
--- OUTSIDE RECORDS SUMMARY | 2025-08-30 00:07 | XMS_ITS | Clinical Summary ---
Author Organization [place] Address [facility] [place] [address] Care Team Providers Care Prepared Foods Associate Name Role Phone Matt Kelly MD Primary Care Provider Allergies No known active allergies Medications [place]-3 Fatty Acids (FISH OIL) 300 MG CAPS [...] Latanya Cabral MD LAB - BEAKER POCT [facility] al Result LABORATORY POC [facility] Acute Care Lab [address] 1[address] floor, [address] [place] [address], [facility] from Last 3 Months or Most Recently Relevant to Health Maintenance Insurance [facility] Care Teams Prepared Foods Associate Relationship Specialty Start Date End Date Matt Kelly MD [facility] [address] PCP - General 03/19/25
--- OUTSIDE RECORDS SUMMARY | 2025-08-30 00:08 | XMS_ITS | Clinical Summary ---
Author Organization [facility] Address [address] [place] [address] Phone Care Team Providers Care Playground Supervisor Name Role Phone Joan Monk MD Primary Care Provider [phone] Allergies No known active allergies Medications glipiZIDE [...] MG) BY MOUTH ONCE DAILY. 3 Active Fowler-3 Fatty Acids (Fish Oil) 1000 MG capsule [...] 51 Years) Discontinued 08/07/2024, 10/24/2012, 09/13/2008 Insurance [facility] Dual Elig MCR/ARI [facility] Medicaid Care Teams Playground Supervisor Relationship Specialty Start Date End Date Joan Monk MD [address] [place] [address] PCP - General Family Medicine 06/02/23
[2025-08-30 00:12] LABS: Hematocrit* 38.4 % (37.0-53.0); Hemoglobin* 12.9 gm/dL (13.5-17.5); Immature Granulocytes Pct Auto 0.9 %; Mean Corpuscular HGB Conc 34 gm/dL (32-36); Mean Corpuscular Hemoglobin 34 pg (26-34); Mean Corpuscular Volume 100 fL (80-100); RDW Coefficient of Variation % 15.7 % (11.5-15.5); Red Blood Count* 3.84 m/uL (4.30-5.90); White Blood Count* 4.30 K/uL (4.50-11.00)
[2025-08-30 00:17] LABS: Immature Granulocytes Abs Auto 0.00 K/uL (0.00-0.30); Lymphocytes Absolute Auto 0.40 K/uL (0.90-2.90); Slide Review Reflex No
[2025-08-30 00:24] LABS: Chloride* 104 mmol/L (96-114); Potassium* 3.8 mmol/L (3.6-5.1); Sodium* 137 mmol/L (135-149)
[2025-08-30] MEDS: IPRAT-ALBUT 0.5-2.5 MG/3 ML NEB 1 NEB IH (00:24)
[2025-08-30 00:27] LABS: Anion Gap 8 mEq/L (7-15); Blood Urea Nitrogen* 25 mg/dL (7-30); Calcium* 10.7 mg/dL (8.4-10.6); Carbon Dioxide* 25 mmol/L (20-32); Creatinine* 1.7 mg/dL (0.5-1.5); Estimated Glomerular Filt Rate 45 ml/min; Glucose* 151 mg/dL (60-115)
[2025-08-30 00:37] LABS: D Dimer Quantitative* 0.72 ug/ml (0.00-0.50); NT Pro B Type NatriureticPept* 86 pg/mL (See Note)
--- NOTE | 2025-08-30 00:55 | CRLHL7_ITS ---
For Patients: As a result of the Century Cures Act, medical imaging exams and procedure reports are released immediately into your electronic medical record. You may view this report before your referring provider. If you have questions, please contact your health care provider. INDICATION: Dyspnea, elevated D-dimer. History of sarcoidosis. TECHNIQUE: CT chest angiogram acquired with 95 cc Isovue 370 IV contrast according to the PE protocol. Coronal and sagittal reconstructions. 3D MIPS post-processing was performed. COMPARISON: Same day chest radiograph. CT chest 05/02/2023. FINDINGS: Cardiovascular structures: Normal heart size. Normal caliber thoracic aorta and central pulmonary arteries. No acute pulmonary embolism identified. Coronary artery calcifications. Mediastinum and kimmy: No pathologically enlarged lymph nodes. No pericardial effusion. Lungs and pleura: No focal consolidation, pleural effusion, or pneumothorax. No significant bronchial wall thickening. Minimal bibasilar dependent atelectasis. There are multiple stable small noncalcified pulmonary nodules bilaterally measuring up to 5 mm. These are unchanged since 2022 and should be benign. The overall number of nodules appears decreased compared to prior exam. No new suspicious nodule. Chest wall: No mass or adenopathy. Upper abdomen: Large amount of stool in the visualized colon. Remainder unremarkable. Bones: Degenerative changes of the spine. New age-indeterminate but chronic appearing mild T12 superior endplate compression fracture. IMPRESSION: 1. Negative for acute pulmonary embolism. 2. Multiple stable small noncalcified pulmonary nodules. No focal lung infiltrates. 3. New age-indeterminate but chronic appearing mild T12 superior endplate compression fracture. Please note that all CT scans at this facility use dose modulation, iterative reconstruction, and/or weight-based dosing when appropriate to reduce radiation dose to as low as reasonably achievable. Dictated by Rakel Youngblood MD @ 08/30/2025 2:02:06 AM (Electronically Signed)
== END 2025-08-30 02:42 | disposition home or self-care (01) ==
PROVIDERS: Emergency Provider Family Medicine; PCP Family Medicine
DX: R06.01 Orthopnea (principal); D86.9 Sarcoidosis, unspecified; N18.9 Chronic kidney disease, unspecified
CPT/HCPCS: 36415; 71046; 71275; 80048; 83735; 83880; 85025; 85379; 93005; 96360; 99284; 99285; J7030; Q9967